=== PATIENT | male | born 1955 | race Caucasian/White ===

== ENCOUNTER 2018-09-16 18:13 | Inpatient (IN) ==
[2018-09-16] MEDS ORDERED: ceFAZolin 2 GM Premix Inj 2 GM/50 ML PIGGYBACK IV.SIG ONE (18:21)
[2018-09-16] MEDS ORDERED: Midazolam Inj 5 MG/ML 1 ML Vial ONE (18:25)
[2018-09-16] MEDS ORDERED: fentaNYL Citrate Inj 100 MCG/2 ML Ampul ONE (18:33)
[2018-09-16 18:35] LABS: Baso # (Auto) 0.1 th/mm3 (0.0-0.2); Baso % (Auto) 0.5 % (0.0-2.0); Eos # (Auto) 0.1 th/mm3 (0.0-0.4); Eos % (Auto) 1.1 % (0.0-4.0); Hematocrit 45.9 % (39.0-51.0); Hemoglobin 15.9 gm/dL (13.0-17.0); Lymph # (Auto) 2.7 th/mm3 (1.0-4.8); Lymph % (Auto) 24.1 % (9.0-44.0); Mean Corpuscular HGB Conc 34.7 % (32.0-36.0); Mean Corpuscular Hemoglobin 30.1 pg (27.0-34.0); Mean Corpuscular Volume 86.7 fL (80.0-100.0); Mean Platelet Volume 7.9 fL (7.0-11.0); Mono # (Auto) 0.6 th/mm3 (0.0-0.9); Mono % (Auto) 5.6 % (0.0-8.0); Neut # (Auto) 7.6 th/mm3 (1.8-7.7); Neut % (Auto) 68.7 % (16.0-70.0); Platelet Count 139 th/mm3 (150-450); Red Blood Count 5.29 mil/mm3 (4.50-5.90); Red Cell Distribution Width 14.2 % (11.6-17.2); White Blood Count 11.1 th/mm3 (4.0-11.0)
[2018-09-16 18:45] LABS: Activated Partial Thrombo Time 24.5 sec (23.4-31.7); Prothrombin Time 10.2 sec (9.8-11.6)
--- NOTE | 2018-09-16 18:55 | ED ---
HPI General Chief complaint: Trauma Alert Stated complaint: trauma History of Present Illness HPI narrative: Patient is an approximately 68 year old male presents to the ER for evaluation as a trauma alert level II. Patient was apparently on the roof of his house and fell landing on his head. EMS reports LOC which was brief, combative during transportation and confused. He is not on blood thinners according to EMS. No additional history is readily available. Related Data Home Medications Medication Instructions Recorded Confirmed No Known Home Medications 09/16/18 09/16/18 Allergies Allergy/AdvReac Type Severity Reaction Status Date / Time No Known Allergies Allergy Verified 09/16/18 18:46 Review of Systems ROS Unobtainable ROS Unobtainable: unobtainable due to mental status Course Initial Documented Vital Signs Pulse Oximetry 100 09/16/18 18:27 Last Documented Vital Signs Pulse Oximetry 100 09/16/18 18:27 Critical Care Time Critical Care Time: Yes Total Critical Care Time: 35 Attestation: Aggregate critical care time was 35 minutes. Time to perform other separately billable procedures was not included in the critical care time. My time did not include minutes spent treating any other patients simultaneously or on activities that did not directly contribute to the patient's treatment. The services I provided to this patient were to treat and/or prevent clinically significant deterioration that could result in: , disability, organ failure I provided critical care services requiring my management, as noted below: Chart data review, documentation time, medication orders and management, vital sign assessments/reviewing monitor data, ordering and reviewing lab tests, ordering and interpreting/reviewing x-rays and diagnostic studies, care of the patient and discussion of the patient with the admitting physicians. Medical Decision Making MDM Narrative Medical decision making narrative: Patient is an elderly male presented to the emergency department after falling off a roof, significantly confused on arrival. Patient required Versed and fentanyl to hold still for CAT scans. Reviewed the CAT scan images with Dr. Hilario who states that there is probably some small subarachnoid hemorrhage on this patient. Hemodynamically stable, required Versed and fentanyl to be sedated for CAT scan. CBC, i-stat chem7, Coags reviewed and unremarkable. CT Head, C-spine, Chest, Abd/Pel, Tspine, Lspine results: Multiple right sided rib fractures including first right rib. Right sided pulmonary contusion Tiny left subdural hematoma Small subarachnoid hemorrhage and hemorrhagic contusion of left frontal/left temporal region. Hairline right occipital fracture. Abdomen negative. D/W Dr. Solis, likely no surgical intervention, he will see patient. D/W Dr. Krystle Melgar, to be admitted to ICU. Medical Screen Exam Complete: Yes Emergency Medical Condition: Yes Lab Data Result diagrams: 09/16/18 18:15 Lab Results 09/16/18 09/16/18 09/16/18 Range/Units 18:15 18:15 18:15 WBC 11.1 H (4.0-11.0) th/mm3 RBC 5.29 (4.50-5.90) mil/mm3 Hgb 15.9 (13.0-17.0) gm/dL POC Hgb (Calc) 15.6 (13.0-17.0) g/dL Hct 45.9 (39.0-51.0) % POC Hct 46.0 (39-51.0) % MCV 86.7 (80.0-100.0) fL MCH 30.1 (27.0-34.0) pg MCHC 34.7 (32.0-36.0) % RDW 14.2 (11.6-17.2) % Plt Count 139 L (150-450) th/mm3 MPV 7.9 (7.0-11.0) fL Neut % (Auto) 68.7 (16.0-70.0) % Lymph % (Auto) 24.1 (9.0-44.0) % Kemper % (Auto) 5.6 (0.0-8.0) % Eos % (Auto) 1.1 (0.0-4.0) % Baso % (Auto) 0.5 (0.0-2.0) % Neut # (Auto) 7.6 (1.8-7.7) th/mm3 Lymph # (Auto) 2.7 (1.0-4.8) th/mm3 Kemper # (Auto) 0.6 (0.0-0.9) th/mm3 Eos # (Auto) 0.1 (0.0-0.4) th/mm3 Baso # (Auto) 0.1 (0.0-0.2) th/mm3 WBC Differential . Differential Comment Auto diff final PT 10.2 (9.8-11.6) sec INR 1.0 Ratio APTT 24.5 (23.4-31.7) sec POC Sodium 145 H (137-144) mmol/L POC Potassium 3.8 (3.6-5.0) mmol/L POC Chloride 106 (102-111) mmol/L POC BUN 19 (5-21) mg/dL POC Creatinine 1.3 (0.6-1.3) mg/dL POC Glucose 98 (68-110) mg/dL Blood Type Antibody Screen 09/16/18 Range/Units 18:15 WBC (4.0-11.0) th/mm3 RBC (4.50-5.90) mil/mm3 Hgb (13.0-17.0) gm/dL POC Hgb (Calc) (13.0-17.0) g/dL Hct (39.0-51.0) % POC Hct (39-51.0) % MCV (80.0-100.0) fL MCH (27.0-34.0) pg MCHC (32.0-36.0) % RDW (11.6-17.2) % Plt Count (150-450) th/mm3 MPV (7.0-11.0) fL Neut % (Auto) (16.0-70.0) % Lymph % (Auto) (9.0-44.0) % Kemper % (Auto) (0.0-8.0) % Eos % (Auto) (0.0-4.0) % Baso % (Auto) (0.0-2.0) % Neut # (Auto) (1.8-7.7) th/mm3 Lymph # (Auto) (1.0-4.8) th/mm3 Kemper # (Auto) (0.0-0.9) th/mm3 Eos # (Auto) (0.0-0.4) th/mm3 Baso # (Auto) (0.0-0.2) th/mm3 WBC Differential Differential Comment PT (9.8-11.6) sec INR Ratio APTT (23.4-31.7) sec POC Sodium (137-144) mmol/L POC Potassium (3.6-5.0) mmol/L POC Chloride (102-111) mmol/L POC BUN (5-21) mg/dL POC Creatinine (0.6-1.3) mg/dL POC Glucose (68-110) mg/dL Blood Type A Positive Antibody Screen Negative Imaging Data Radiologist's impression: Abdomen/Pelvis CT 09/16/18 18:21 CONCLUSION: 1. Fractures of the right 11th rib and right first through fourth transverse processes of the lumbar spine. 2. No solid visceral injury identified within the abdomen. Cervical Spine CT 09/16/18 18:21 CONCLUSION: 1. No cervical spine fracture identified. 2. Nondisplaced fractures of the medial right first rib and right occipital bone. Chest CT 09/16/18 18:21 CONCLUSION: 1. Fractures of the right third through sixth rib and right 11th rib, nondisplaced with minimal right posterior lung thorax. 2. Dilated esophagus with esophageal motility disorder. Face CT 09/16/18 18:21 CONCLUSION: 1. No acute facial bone fracture. Head CT 09/16/18 18:21 CONCLUSION: 1. Tiny left subdural hematoma measuring up to about 3 mm in thickness without mass effect or midline shift. 2. Small subarachnoid hemorrhage and probable minimal hemorrhagic contusion in the upper left frontal lobe and left temporal region. 3. Soft tissue swelling in the right occipital region with a hairline nondisplaced fracture of the right occipital bone. . Lumbar Spine CT 09/16/18 18:21 CONCLUSION: EXAM DATE: 09/16/2018 7:28 PM EST AGE/SEX: 89 years / Male INDICATIONS: Trauma alert. Fell off a roof. CLINICAL DATA: This is the patient's initial encounter. Patient reports that signs and symptoms have been present for 1 day and indicates a pain score of Nonresponsive. MEDICAL/SURGICAL HISTORY: Non-responsive. Non-responsive. RADIATION DOSE: . CTDI (mGy) ; Reconstructed from previous dataset, no dose COMPARISON: No prior exams available for comparison. TECHNIQUE: Contiguous axial images were acquired using a multirow detector CT scanner after intravenous administration of 97 ml Omnipaque 350 (iohexol) nonionic water-soluble contrast as a cumulative dose for multiple exams. Multiplanar reconstruction in the sagittal and coronal planes was performed. Using automated exposure control and adjustment of the mA and/or kV according to patient size, radiation dose was kept as low as reasonably achievable to obtain optimal diagnostic quality images. DICOM format image data is available electronically for review and comparison. FINDINGS: No thoracic vertebral body fractures are identified. CONCLUSION: EXAM DATE: 09/16/2018 7:28 PM EST AGE/SEX: 89 years / Male INDICATIONS: Trauma alert. Fell off a roof. CLINICAL DATA: This is the patient's initial encounter. Patient reports that signs and symptoms have been present for 1 day and indicates a pain score of Nonresponsive. MEDICAL/SURGICAL HISTORY: Non-responsive. Non-responsive. RADIATION DOSE: . CTDI (mGy) ; Reconstructed from previous dataset, no dose COMPARISON: No prior exams available for comparison. TECHNIQUE: Multiple contiguous axial images were obtained through the chest during bolus infusion of 97 ml Omnipaque 350 (iohexol) nonionic water-soluble contrast as a cumulative dose for multiple exams. Images were obtained in suspended respiration using multiple row detector helical technique. Using automated exposure control and adjustment of the mA and/or kV according to patient size, radiation dose was kept as low as reasonably achievable to obtain optimal diagnostic quality images. DICOM format image data is available electronically for review and comparison. FINDINGS: No fractures of the right third through sixth ribs on the right 11th rib, nondisplaced. No pneumothorax. Minimal lung contusion on the right posteriorly. Trace extrapleural hemorrhage. There is no mediastinal hematoma or evidence for traumatic aortic injury. The esophagus is abnormally dilated characteristic of esophageal motility disorder. CONCLUSION: 1. Fractures of the right third through sixth rib and right 11th rib, nondisplaced with minimal right posterior lung contusion 2. Dilated esophagus with esophageal motility disorder. Thoracic Spine CT 09/16/18 18:21 CONCLUSION: EXAM DATE: 09/16/2018 7:24 PM EST AGE/SEX: 89 years / Male INDICATIONS: Trauma. Fell off a roof. CLINICAL DATA: This is the patient's initial encounter. Patient reports that signs and symptoms have been present for 1 day and indicates a pain score of Nonresponsive. MEDICAL/SURGICAL HISTORY: Non-responsive. Non-responsive. RADIATION DOSE: . CTDI (mGy) ; Reconstructed from previous dataset, no dose COMPARISON: No prior exams available for comparison. TECHNIQUE: Multiple contiguous axial images were obtained through the chest during bolus infusion of 96 ml Omnipaque 350 (iohexol) nonionic water-soluble contrast as a single exam dose. Images were obtained in suspended respiration using multiple row detector helical technique. Using automated exposure control and adjustment of the mA and/or kV according to patient size, radiation dose was kept as low as reasonably achievable to obtain optimal diagnostic quality images. DICOM format image data is available electronically for review and comparison. FINDINGS: No fractures of the right third through sixth ribs on the right 11th rib, nondisplaced. No pneumothorax. Minimal lung contusion on the right posteriorly. Trace extrapleural hemorrhage. There is no mediastinal hematoma or evidence for traumatic aortic injury. The esophagus is abnormally dilated characteristic of esophageal motility disorder. CONCLUSION: 1. Fractures of the right third through sixth rib and right 11th rib, nondisplaced with minimal right posterior lung contusion 2. Dilated esophagus with esophageal motility disorder. Discharge Plan Discharge Disposition Patient Disposition: ED Admit(ED Internal Use Only) Discharge Condition Condition: Fair Discharge Order Discharge Orders: ED Use Only Admit Order (Routine); Ordered 09/16/18 Ordered By: Yakov Espinal Discharge Details Diagnosis: Contusion of lung, Closed rib fracture, Brain contusion, Subdural hemorrhage Physicians Team ED Provider: Yakov Espinal Primary Care Provider: UNKNOWN, Attending Provider: Eros Melgar Other Providers: Tete Van ; Andreia Francis ; Braden Patel ; Alice Carlisle ; Jesus Yu ; Eros Melgar ; George Daniels ; Thanh Rivers ; [employer] ; Dalton Solis Status ED Status: Admitted Patient
--- NOTE | 2018-09-16 19:14 | CT ---
EXAM DATE: 09/16/2018 7:00 PM EST AGE/SEX: 89 years / Male INDICATIONS: TRAUMA ALERT. Fall from a roof. CLINICAL DATA: This is the patient's initial encounter. Patient reports that signs and symptoms have been present for 1 day and indicates a pain score of Nonresponsive. MEDICAL/SURGICAL HISTORY: Non-responsive. Non-responsive. RADIATION DOSE: 11.56 CTDI (mGy) COMPARISON: No prior exams available for comparison. TECHNIQUE: Multiple contiguous axial images were obtained through the chest during bolus infusion of 97 ml Omnipaque 350 (iohexol) nonionic water-soluble contrast as a cumulative dose for multiple exa ms. Images were obtained in suspended respiration using multiple row detector helical technique. U sing automated exposure control and adjustment of the mA and/or kV according to patient size, radiati on dose was kept as low as reasonably achievable to obtain optimal diagnostic quality images. DICOM format image data is available electronically for review and comparison. FINDINGS: No fractures of the right third through sixth ribs on the right 11th rib, nondisplaced. No pneumothor ax. Minimal lung contusion on the right posteriorly. Trace extrapleural hemorrhage. There is no mediastinal hematoma or evidence for traumatic aortic injury. The esophagus is abnormally dilated characteristic of esophageal motility disorder. CONCLUSION: 1. Fractures of the right third through sixth rib and right 11th rib, nondisplaced with minimal righ t posterior lung thorax. 2. Dilated esophagus with esophageal motility disorder. Electronically signed by: Mati Hilario MD Board Certified Radiologist 09/16/2018 7:13 PM EST
--- NOTE | 2018-09-16 19:17 | CT ---
EXAM DATE: 09/16/2018 6:58 PM EST AGE/SEX: 89 years / Male INDICATIONS: TRAUMA ALERT. Fall from a roof. CLINICAL DATA: This is the patient's initial encounter. Patient reports that signs and symptoms have been present for 1 day and indicates a pain score of Nonresponsive. MEDICAL/SURGICAL HISTORY: Non-responsive. Non-responsive. RADIATION DOSE: 64.63 CTDI (mGy) COMPARISON: No prior exams available for comparison. TECHNIQUE: CT of the head without contrast. Using automated exposure control and adjustment of the mA and/or kV according to patient size, radiation dose was kept as low as reasonably achievable to ob tain optimal diagnostic quality images. DICOM format image data is available electronically for revi ew and comparison. FINDINGS: There is a small amount of hemorrhage in the upper left frontal region and also in the left temporal region probably representing subarachnoid hemorrhage and mild fraying contusions. There is soft tissu e swelling right occipital region with a nondisplaced hairline occipital bone fracture. There is a ti ny left subdural hematoma measuring up to about 3 mm in thickness. There is some fluid in the sphenoid sinus. CONCLUSION: 1. Tiny left subdural hematoma measuring up to about 3 mm in thickness without mass effect or midlin e shift. 2. Small subarachnoid hemorrhage and probable minimal hemorrhagic contusion in the upper left fronta l lobe and left temporal region. 3. Soft tissue swelling in the right occipital region with a hairline nondisplaced fracture of the r ight occipital bone. . Electronically signed by: Mati Hilario MD Board Certified Radiologist 09/16/2018 7:16 PM EST
--- NOTE | 2018-09-16 19:22 | CT ---
EXAM DATE: 09/16/2018 7:13 PM EST AGE/SEX: 89 years / Male INDICATIONS: TRAUMA ALERT. Fall from a roof. CLINICAL DATA: This is the patient's initial encounter. Patient reports that signs and symptoms have been present for 1 day and indicates a pain score of Nonresponsive. MEDICAL/SURGICAL HISTORY: Non-responsive. Non-responsive. ORAL CONTRAST: No oral contrast ingested. RADIATION DOSE: 11.56 CTDI (mGy) ; Combined studies COMPARISON: No prior exams available for comparison. TECHNIQUE: Multiple contiguous axial images were obtained through the abdomen and pelvis following b olus infusion of 97 ml Omnipaque 350 (iohexol) nonionic water-soluble contrast as a cumulative dose for multiple exams. No oral contrast ingested. Using automated exposure control and adjustment of t he mA and/or kV according to patient size, radiation dose was kept as low as reasonably achievable to obtain optimal diagnostic quality images. DICOM format image data is available electronically for r eview and comparison. FINDINGS: There is dependent atelectasis in the lungs. Distal esophagus is dilated. No acute findings in the liver, spleen, adrenals, kidneys or pancreas. Punctate calcifications noted in the wall of the gallbladder. No pelvic masses or adenopathy. No free fluid. Right 11th rib fracture noted. There are also fractures of the right first, second, third, fourth transverse processes. CONCLUSION: 1. Fractures of the right 11th rib and right first through fourth transverse processes of the lumbar spine. 2. No solid visceral injury identified within the abdomen. Electronically signed by: Mati Hilario MD Board Certified Radiologist 09/16/2018 7:20 PM EST
--- NOTE | 2018-09-16 19:27 | CT ---
EXAM DATE: 09/16/2018 7:12 PM EST AGE/SEX: 89 years / Male INDICATIONS: TRAUMA ALERT. Fall from a roof. CLINICAL DATA: This is the patient's initial encounter. Patient reports that signs and symptoms have been present for 1 day and indicates a pain score of Nonresponsive. MEDICAL/SURGICAL HISTORY: Non-responsive. Non-responsive. RADIATION DOSE: 20.44 CTDI (mGy) COMPARISON: No prior exams available for comparison. TECHNIQUE: Contiguous axial images were obtained using helical multirow detector technique. The vol umetric data was post-processed with multiplanar reconstruction in oblique axial, sagittal, and coron al planes. Using automated exposure control and adjustment of the mA and/or kV according to patient s ize, radiation dose was kept as low as reasonably achievable to obtain optimal diagnostic quality danitza ges. DICOM format image data is available electronically for review and comparison. FINDINGS: There is no acute fracture or spondylolisthesis in the cervical spine. Moderate degenerative disc dis ease. There is a probable nondisplaced fracture medial right first rib. There is a nondisplaced right occipital bone fracture. Fluid in sphenoid sinus. CONCLUSION: 1. No cervical spine fracture identified. 2. Nondisplaced fractures of the medial right first rib and right occipital bone. Electronically signed by: Mati Hilario MD Board Certified Radiologist 09/16/2018 7:25 PM EST
[2018-09-16] MEDS: Sod Chloride 0.9% Inj 1,000 ML IV.CONT SCH (19:30)
--- NOTE | 2018-09-16 19:32 | CT ---
EXAM DATE: 09/16/2018 7:24 PM EST AGE/SEX: 89 years / Male INDICATIONS: Trauma. Fell off a roof. CLINICAL DATA: This is the patient's initial encounter. Patient reports that signs and symptoms have been present for 1 day and indicates a pain score of Nonresponsive. MEDICAL/SURGICAL HISTORY: Non-responsive. Non-responsive. RADIATION DOSE: . CTDI (mGy) ; Reconstructed from previous dataset, no dose COMPARISON: No prior exams available for comparison. TECHNIQUE: Contiguous axial images were acquired using a multirow detector CT scanner after intraven ous administration of 96 ml Omnipaque 350 (iohexol) nonionic water-soluble contrast as a single exam dose. Multiplanar reconstruction in the sagittal and coronal planes was performed. Using automate d exposure control and adjustment of the mA and/or kV according to patient size, radiation dose was k ept as low as reasonably achievable to obtain optimal diagnostic quality images. DICOM format image data is available electronically for review and comparison. FINDINGS: No thoracic vertebral body fractures are identified. CONCLUSION: EXAM DATE: 09/16/2018 7:24 PM EST AGE/SEX: 89 years / Male INDICATIONS: Trauma. Fell off a roof. CLINICAL DATA: This is the patient's initial encounter. Patient reports that signs and symptoms have been present for 1 day and indicates a pain score of Nonresponsive. MEDICAL/SURGICAL HISTORY: Non-responsive. Non-responsive. RADIATION DOSE: . CTDI (mGy) ; Reconstructed from previous dataset, no dose COMPARISON: No prior exams available for comparison. TECHNIQUE: Multiple contiguous axial images were obtained through the chest during bolus infusion of 96 ml Omnipaque 350 (iohexol) nonionic water-soluble contrast as a single exam dose. Images were obtained in suspended respiration using multiple row detector helical technique. Using automated exp osure control and adjustment of the mA and/or kV according to patient size, radiation dose was kept a s low as reasonably achievable to obtain optimal diagnostic quality images. DICOM format image data is available electronically for review and comparison. FINDINGS: No fractures of the right third through sixth ribs on the right 11th rib, nondisplaced. No pneumothor ax. Minimal lung contusion on the right posteriorly. Trace extrapleural hemorrhage. There is no mediastinal hematoma or evidence for traumatic aortic injury. The esophagus is abnormally dilated characteristic of esophageal motility disorder. CONCLUSION: 1. Fractures of the right third through sixth rib and right 11th rib, nondisplaced with minimal righ t posterior lung contusion 2. Dilated esophagus with esophageal motility disorder. Electronically signed by: Mati Hilario MD Board Certified Radiologist 09/16/2018 7:31 PM EST
--- NOTE | 2018-09-16 19:34 | CT ---
EXAM DATE: 09/16/2018 7:28 PM EST AGE/SEX: 89 years / Male INDICATIONS: Trauma alert. Fell off a roof. CLINICAL DATA: This is the patient's initial encounter. Patient reports that signs and symptoms have been present for 1 day and indicates a pain score of Nonresponsive. MEDICAL/SURGICAL HISTORY: Non-responsive. Non-responsive. RADIATION DOSE: . CTDI (mGy) ; Reconstructed from previous dataset, no dose COMPARISON: No prior exams available for comparison. TECHNIQUE: Contiguous axial images were acquired with a multirow detector CT scanner after intraveno us administration of 97 ml Omnipaque 350 (iohexol) nonionic water-soluble contrast as a cumulative d ose for multiple exams. Multiplanar reconstructions in the sagittal and coronal plane were also perf ormed. Using automated exposure control and adjustment of the mA and/or kV according to patient size, radiation dose was kept as low as reasonably achievable to obtain optimal diagnostic quality images. DICOM format image data is available electronically for review and comparison. FINDINGS: CONCLUSION: EXAM DATE: 09/16/2018 7:28 PM EST AGE/SEX: 89 years / Male INDICATIONS: Trauma alert. Fell off a roof. CLINICAL DATA: This is the patient's initial encounter. Patient reports that signs and symptoms have been present for 1 day and indicates a pain score of Nonresponsive. MEDICAL/SURGICAL HISTORY: Non-responsive. Non-responsive. RADIATION DOSE: . CTDI (mGy) ; Reconstructed from previous dataset, no dose COMPARISON: No prior exams available for comparison. TECHNIQUE: Contiguous axial images were acquired using a multirow detector CT scanner after intraven ous administration of 97 ml Omnipaque 350 (iohexol) nonionic water-soluble contrast as a cumulative dose for multiple exams. Multiplanar reconstruction in the sagittal and coronal planes was performe d. Using automated exposure control and adjustment of the mA and/or kV according to patient size, ra diation dose was kept as low as reasonably achievable to obtain optimal diagnostic quality images. D ICOM format image data is available electronically for review and comparison. FINDINGS: No thoracic vertebral body fractures are identified. CONCLUSION: EXAM DATE: 09/16/2018 7:28 PM EST AGE/SEX: 89 years / Male INDICATIONS: Trauma alert. Fell off a roof. CLINICAL DATA: This is the patient's initial encounter. Patient reports that signs and symptoms have been present for 1 day and indicates a pain score of Nonresponsive. MEDICAL/SURGICAL HISTORY: Non-responsive. Non-responsive. RADIATION DOSE: . CTDI (mGy) ; Reconstructed from previous dataset, no dose COMPARISON: No prior exams available for comparison. TECHNIQUE: Multiple contiguous axial images were obtained through the chest during bolus infusion of 97 ml Omnipaque 350 (iohexol) nonionic water-soluble contrast as a cumulative dose for multiple exa ms. Images were obtained in suspended respiration using multiple row detector helical technique. U sing automated exposure control and adjustment of the mA and/or kV according to patient size, radiati on dose was kept as low as reasonably achievable to obtain optimal diagnostic quality images. DICOM format image data is available electronically for review and comparison. FINDINGS: No fractures of the right third through sixth ribs on the right 11th rib, nondisplaced. No pneumothor ax. Minimal lung contusion on the right posteriorly. Trace extrapleural hemorrhage. There is no mediastinal hematoma or evidence for traumatic aortic injury. The esophagus is abnormally dilated characteristic of esophageal motility disorder. CONCLUSION: 1. Fractures of the right third through sixth rib and right 11th rib, nondisplaced with minimal righ t posterior lung contusion 2. Dilated esophagus with esophageal motility disorder. Electronically signed by: Mati Hilario MD Board Certified Radiologist 09/16/2018 7:32 PM EST
--- NOTE | 2018-09-16 19:36 | CT ---
EXAM DATE: 09/16/2018 7:25 PM EST AGE/SEX: 89 years / Male INDICATIONS: Trauma. Fell off a roof. CLINICAL DATA: This is the patient's initial encounter. Patient reports that signs and symptoms have been present for 1 day and indicates a pain score of Nonresponsive. MEDICAL/SURGICAL HISTORY: Non-responsive. Non-responsive. RADIATION DOSE: 21.96 CTDI (mGy) COMPARISON: No prior exams available for comparison. TECHNIQUE: Contiguous images in the axial and coronal planes were obtained using helical multirow de tector technique. Using automated exposure control and adjustment of the mA and/or kV according to p atient size, radiation dose was kept as low as reasonably achievable to obtain optimal diagnostic esteban lity images. DICOM format image data is available electronically for review and comparison. FINDINGS: Exam is degraded by motion. No acute facial bone fracture identified. There is fluid in the sphenoid sinus. Temporomandibular joints are intact. CONCLUSION: 1. No acute facial bone fracture. Electronically signed by: Mati Hilario MD Board Certified Radiologist 09/16/2018 7:34 PM EST
--- NOTE | 2018-09-16 19:41 | P.CONNS ---
History of Present Illness Service: trauma Primary Care Provider: UNKNOWN History of Present Illness: 68's yoM who fell off the roof while cleaning the gutters. +LOC. Imaging shows mild traumatic subarachnoid hemorrhage left frontal (post-contrast delay from other scans creates an artifact). CT C-spine negative. Patient GCS 14, mildly confused, otherwise answers appropriately and moves all extremities with full strength. Has an occipital bone fracture (right) right occipital hematoma (subgaleal, extracranial) without break in the skin, and right first rib fracture. Medications and Allergies Active Medications: Active Medications Bacitracin (Baciguent Oint) 1 applicatio TOPICAL BID PAYAM Chlorhexidine Gluconate (Chlorhexidine 2% Cloth) 3 pack TOPICAL DAILY@0400 PAYAM Stop: 09/22/18 03:59 Chlorhexidine Gluconate (Chlorhexidine 2% Cloth) 3 pack TOPICAL DAILY@0400 PRN PRN Reason: Extra cloth needed Stop: 09/22/18 03:59 Enalaprilat (Vasotec Inj) 1.25 mg IV.PUSH Q8H PRN PRN Reason: Blood pressure 180/95 Hydromorphone HCl (Dilaudid Pf Inj) 1 mg IV.PUSH Q1H PRN PRN Reason: Break through pain Sodium Chloride (Ns Inj) 1,000 mls @ 100 mls/hr IV.CONT .Q10H PAYAM Ondansetron HCl (Zofran Inj) 4 mg IV.PUSH Q6H PRN PRN Reason: NAUSEA OR VOMITING Pantoprazole Sodium (Protonix Inj) 40 mg IV.PUSH Q24H PAYAM Sodium Chloride (Ns Flush) 2 ml IV.FLUSH UNSCH PRN PRN Reason: FLUSH AFTER USING IV ACCESS Allergies Allergy/AdvReac Type Severity Reaction Status Date / Time No Known Allergies Allergy Verified 09/16/18 18:46 Home Medications Medication Instructions Recorded Confirmed Type No Known Home Medications 09/16/18 09/16/18 History Exam Vital signs: Vital Signs 09/16/18 18:27 Pulse Oximetry 100 Intake & Output 09/16/18 09/16/18 09/17/18 06:59 18:59 06:59 Intake Total 50 / 50 Balance 50 / 50 Intake: IV 50 / 50 Ancef 2 GM Premix Inj 2 gm In 50 / 50 50 ml @ 0 mls/hr IV.SIG .STK- MED ONE Rx#:[id number] Narrative: A&O to name, place Full strength UE/LE Intact sensation no neck pain CN II-XII intact Results - Laboratory Findings CBC and BMP: 09/16/18 18:15 Abnormal lab findings: Abnormal Labs 09/16/18 09/16/18 18:15 18:15 WBC 11.1 H Plt Count 139 L POC Sodium 145 H Assessment and Plan - Plan 68'sM fall off roof with +LOC, traumatic SAH. Plan: repeat CT in AM Keppra 1gm load then 500mg BID C-collar cleared, activity and diet as tolerated Defer remainder of evaluation to trauma
[2018-09-16] MEDS ORDERED: Magnesium Sulfate Inj 2 GM in Sodium Chlor 0.9% Inj 96 ML IV.SIG PRN (20:45)
[2018-09-16] MEDS ORDERED: Potassium Phosphate Inj 30 MMOL in Sodium Chlor 0.9% Inj 250 ML IV.SIG PRN (20:45)
[2018-09-16] MEDS ORDERED: Magnesium Oxide 400 MG Tablet PO PRN (20:45)
[2018-09-16] MEDS ORDERED: Potassium Chlor 20 mEq Premix 20 MEQ/100 ML PIGGYBACK IV.SIG PRN ×2 (20:45)
[2018-09-16] MEDS ORDERED: Magnesium Sulfate Inj 4 GM in Sodium Chlor 0.9% Inj 92 ML IV.SIG PRN (20:45)
[2018-09-16] MEDS ORDERED: Potassium Chlor 40 mEq Premix 40 MEQ/100 ML PIGGYBACK IV.SIG PRN ×2 (20:45)
[2018-09-16] MEDS ORDERED: Potassium Phosphate 500 MG Soluble Tablet PO PRN ×2 (20:45)
[2018-09-16] MEDS ORDERED: Potassium Chloride 25 MEQ Effervescent Tablet PO PRN (20:45)
[2018-09-16] MEDS ORDERED: Sodium Phosphate Inj 30 MMOL in Sodium Chlor 0.9% Inj 250 ML IV.SIG PRN (20:45)
[2018-09-16] MEDS: HYDROmorphone PF Inj 1 MG/ML Ampul IV.PUSH PRN (20:46)
[2018-09-16] MEDS: Pantoprazole Inj 40 MG Vial IV.PUSH SCH (20:47)
[2018-09-16] MEDS ORDERED: Lidocaine 5% Patch T-DERMAL SCH (21:00)
[2018-09-16] MEDS: Methocarbamol 500 MG Tablet PO SCH (21:14)
[2018-09-16] MEDS: Senna/Docusate Sodium 8.6/50 MG Tablet PO SCH (21:14)
[2018-09-16] MEDS: levETIRAcetam 500 MG Tablet PO SCH (21:14)
[2018-09-16] MEDS: Lidocaine 5% Patch T-DERMAL SCH ×2 (21:15→22:15)
--- NOTE | 2018-09-16 21:31 | MH ---
cc: Eros Melgar MD DATE OF ADMISSION: 09/16/2018 CHIEF COMPLAINT: Level 2 trauma alert, status post fall. HISTORY OF PRESENT ILLNESS: The patient is a [id number] male who presents status post fall. The patient was noted to be cleaning his gutters when he lost his balance and fell from roof. He was noted to have a brief loss of consciousness and was noted to have confusion en route, GCS of 14. He was noted to be hemodynamically stable and taken to the trauma bay. He had further workup including primary and secondary surveys with again some baseline confusion, but otherwise protecting the airway. He was taken to the CT scanner with findings of subarachnoid hemorrhage, occipital skull fracture, rib fracture of 1, 3-6 and 11 on the right. The patient was transferred to the ICU. PAST MEDICAL HISTORY: Unable to obtain. PAST SURGICAL HISTORY: Unable to obtain ALLERGIES: NO KNOWN DRUG ALLERGIES. SOCIAL HISTORY: Unable to obtain. MEDICATION: Unable to obtain FAMILY HISTORY: Unable to obtain. REVIEW OF SYSTEMS: A 12-point review of systems is otherwise was negative except as above. PHYSICAL EXAMINATION: GENERAL: The patient is in mild distress. VITAL SIGNS: Temperature 98.2, pulse 72, blood pressure 167/95, saturation 99% on 2 liters. HEENT: Pupils equal, round, and reactive. A small laceration on occipital scalp. NECK: Supple. Trachea midline. LUNGS: Bilateral expansion, clear. Tenderness to palpation on right side of the chest. ABDOMEN: Soft, nontender, nondistended. EXTREMITIES: Minor abrasions. Warm and well perfused. NEUROLOGIC: GCS of 14. BACK: No step-offs. PELVIC: Stable. LABORATORY AND DIAGNOSTIC DATA: WBC 11.1, hemoglobin 15.9, hematocrit 46, platelets 139. INR 1. Sodium 145, potassium 3.8, chloride 106, BUN 19, creatinine 1.3, glucose 98. CT is reviewed by myself showin. CT head: Left subdural hematoma 3 mm, subarachnoid contusion, frontal and temporal on the left, soft tissue swelling. 2. CT C-spine: No cervical fracture or rib fractures noted. 3. CT of T-spine and L-spine: No thoracic vertebral body fractures. No lumbar fractures. 4. CT chest: Multiple rib fractures, ribs 1, 3-6 and 11 on right, pulmonary contusion. 5. CT abdomen and pelvis: No evidence of abdominal organ injury. ASSESSMENT: The patient is a [id number] male status post a fall from roof with a subarachnoid hemorrhage, small subdural and several right rib fractures, pulmonary contusion, ribs 1, 3-6 and 11 on the right. PLAN: After full workup, the patient with the above-named issues. At this point, the patient needs to go to ICU for close monitoring and evaluation. Consultation neurosurgery who recommends Keppra and repeat CT scan in the morning. Scalp laceration closed with antonietta at bedside via neurosurgery. Every 1 hour neuro checks, pain control, IV fluids, n.p.o. for now. Will continue to follow and consultation to ICU for further management. Discussion with Dr. Carlisle. MD ONEIL Jeffery/steffanie , 08:51 PM , 09:04 PM NILDA
--- NOTE | 2018-09-16 23:58 | P.PNCC ---
Subjective Brief History: 74-year-old male fell off a roof while cleaning gutters and was transferred to our institution is priority 1 trauma alert. On arrival patient was awake alert but somewhat disoriented to repetitive and confused. Dileep Coma Scale about 13 and then came up to 14 Patient underwent full diagnostic and clinical workup and was found to have following injuries Left fronto-temporal sub-arachnoid bleed Right occipital skull fracture Right right third, fourth, fifth, sixth, seventh rib fracture Small pulmonary contusion and small hemothorax on the right Patient will be observed in the ICU neurosurgery is consulted and he will undergo repeat CT scan of the brain tomorrow Objective Vital Signs / I&O: Vital Signs 09/16/18 18:27 09/16/18 19:43 09/16/18 20:00 Temperature 98.4 F Pulse Rate 93 H 89 Respiratory Rate 22 17 Blood Pressure Pulse Oximetry 100 98 97 09/16/18 20:04 09/16/18 20:14 09/16/18 20:34 Temperature Pulse Rate 90 94 H 98 H Respiratory Rate 18 25 H 22 Blood Pressure 164/101 H 166/95 H 165/84 H Pulse Oximetry 97 95 98 09/16/18 21:00 09/16/18 21:04 09/16/18 21:17 Temperature Pulse Rate 95 H 95 H 98 H Respiratory Rate 18 18 16 Blood Pressure 136/77 Pulse Oximetry 96 97 09/16/18 21:34 09/16/18 22:00 09/16/18 22:04 Temperature Pulse Rate 97 H 100 H 99 H Respiratory Rate 19 17 18 Blood Pressure 139/71 120/75 Pulse Oximetry 97 97 96 Intake & Output 09/16/18 09/16/18 09/17/18 06:59 18:59 06:59 Intake Total 50 / 50 100 / 100 Balance 50 / 50 100 / 100 Weight 86.5 kg Intake: IV 50 / 50 100 / 100 Ofirmev Inj 1,000 mg In 100 ml 100 / 100 @ 400 mls/hr IV.SIG Q6H PAYAM Rx# :[id number] Ancef 2 GM Premix Inj 2 gm In 50 / 50 50 ml @ 0 mls/hr IV.SIG .STK- MED ONE Rx#:[id number] Other: Weight On Admission 86.5 kg Result Diagrams: 09/16/18 18:15 Imaging: Impressions Abdomen/Pelvis CT 09/16/18 18:21 CONCLUSION: 1. Fractures of the right 11th rib and right first through fourth transverse processes of the lumbar spine. 2. No solid visceral injury identified within the abdomen. Cervical Spine CT 09/16/18 18:21 CONCLUSION: 1. No cervical spine fracture identified. 2. Nondisplaced fractures of the medial right first rib and right occipital bone. Chest CT 09/16/18 18:21 CONCLUSION: 1. Fractures of the right third through sixth rib and right 11th rib, nondisplaced with minimal right posterior lung thorax. 2. Dilated esophagus with esophageal motility disorder. Face CT 09/16/18 18:21 CONCLUSION: 1. No acute facial bone fracture. Head CT 09/16/18 18:21 CONCLUSION: 1. Tiny left subdural hematoma measuring up to about 3 mm in thickness without mass effect or midline shift. 2. Small subarachnoid hemorrhage and probable minimal hemorrhagic contusion in the upper left frontal lobe and left temporal region. 3. Soft tissue swelling in the right occipital region with a hairline nondisplaced fracture of the right occipital bone. . Lumbar Spine CT 09/16/18 18:21 CONCLUSION: EXAM DATE: 09/16/2018 7:28 PM EST AGE/SEX: 89 years / Male INDICATIONS: Trauma alert. Fell off a roof. CLINICAL DATA: This is the patient's initial encounter. Patient reports that signs and symptoms have been present for 1 day and indicates a pain score of Nonresponsive. MEDICAL/SURGICAL HISTORY: Non-responsive. Non-responsive. RADIATION DOSE: . CTDI (mGy) ; Reconstructed from previous dataset, no dose COMPARISON: No prior exams available for comparison. TECHNIQUE: Contiguous axial images were acquired using a multirow detector CT scanner after intravenous administration of 97 ml Omnipaque 350 (iohexol) nonionic water-soluble contrast as a cumulative dose for multiple exams. Multiplanar reconstruction in the sagittal and coronal planes was performed. Using automated exposure control and adjustment of the mA and/or kV according to patient size, radiation dose was kept as low as reasonably achievable to obtain optimal diagnostic quality images. DICOM format image data is available electronically for review and comparison. FINDINGS: No thoracic vertebral body fractures are identified. CONCLUSION: EXAM DATE: 09/16/2018 7:28 PM EST AGE/SEX: 89 years / Male INDICATIONS: Trauma alert. Fell off a roof. CLINICAL DATA: This is the patient's initial encounter. Patient reports that signs and symptoms have been present for 1 day and indicates a pain score of Nonresponsive. MEDICAL/SURGICAL HISTORY: Non-responsive. Non-responsive. RADIATION DOSE: . CTDI (mGy) ; Reconstructed from previous dataset, no dose COMPARISON: No prior exams available for comparison. TECHNIQUE: Multiple contiguous axial images were obtained through the chest during bolus infusion of 97 ml Omnipaque 350 (iohexol) nonionic water-soluble contrast as a cumulative dose for multiple exams. Images were obtained in suspended respiration using multiple row detector helical technique. Using automated exposure control and adjustment of the mA and/or kV according to patient size, radiation dose was kept as low as reasonably achievable to obtain optimal diagnostic quality images. DICOM format image data is available electronically for review and comparison. FINDINGS: No fractures of the right third through sixth ribs on the right 11th rib, nondisplaced. No pneumothorax. Minimal lung contusion on the right posteriorly. Trace extrapleural hemorrhage. There is no mediastinal hematoma or evidence for traumatic aortic injury. The esophagus is abnormally dilated characteristic of esophageal motility disorder. CONCLUSION: 1. Fractures of the right third through sixth rib and right 11th rib, nondisplaced with minimal right posterior lung contusion 2. Dilated esophagus with esophageal motility disorder. Thoracic Spine CT 09/16/18 18:21 CONCLUSION: EXAM DATE: 09/16/2018 7:24 PM EST AGE/SEX: 89 years / Male INDICATIONS: Trauma. Fell off a roof. CLINICAL DATA: This is the patient's initial encounter. Patient reports that signs and symptoms have been present for 1 day and indicates a pain score of Nonresponsive. MEDICAL/SURGICAL HISTORY: Non-responsive. Non-responsive. RADIATION DOSE: . CTDI (mGy) ; Reconstructed from previous dataset, no dose COMPARISON: No prior exams available for comparison. TECHNIQUE: Multiple contiguous axial images were obtained through the chest during bolus infusion of 96 ml Omnipaque 350 (iohexol) nonionic water-soluble contrast as a single exam dose. Images were obtained in suspended respiration using multiple row detector helical technique. Using automated exposure control and adjustment of the mA and/or kV according to patient size, radiation dose was kept as low as reasonably achievable to obtain optimal diagnostic quality images. DICOM format image data is available electronically for review and comparison. FINDINGS: No fractures of the right third through sixth ribs on the right 11th rib, nondisplaced. No pneumothorax. Minimal lung contusion on the right posteriorly. Trace extrapleural hemorrhage. There is no mediastinal hematoma or evidence for traumatic aortic injury. The esophagus is abnormally dilated characteristic of esophageal motility disorder. CONCLUSION: 1. Fractures of the right third through sixth rib and right 11th rib, nondisplaced with minimal right posterior lung contusion 2. Dilated esophagus with esophageal motility disorder. Disinhibition Score: 21.00 Aggression Score: 14.00 Lability Score: 14.00 Agitated Behavior Total Score: 18 Assessment and Plan Attestation: Critical care time 34 minutes
[2018-09-17] MEDS: HYDROmorphone PF Inj 1 MG/ML Ampul IV.PUSH PRN ×2 (00:23→08:00)
[2018-09-17] MEDS ORDERED: Haloperidol Inj 5 MG/ML Ampul IV.PUSH PRN (00:25)
[2018-09-17] MEDS: Dexmedetomidine Inj 200 MCG in Sodium Chlor 0.9% Inj 48 ML IV.CONT PRN ×2 (01:54→17:32)
[2018-09-17 03:54] LABS: Baso % (Auto) 0.1 % (0.0-2.0); Hematocrit 40.8 % (39.0-51.0); Hemoglobin 14.4 gm/dL (13.0-17.0); Lymph # (Auto) 0.4 th/mm3 (1.0-4.8); Lymph % (Auto) 2.9 % (9.0-44.0); Mean Corpuscular HGB Conc 35.2 % (32.0-36.0); Mean Corpuscular Hemoglobin 30.1 pg (27.0-34.0); Mean Corpuscular Volume 85.5 fL (80.0-100.0); Mean Platelet Volume 8.6 fL (7.0-11.0); Mono # (Auto) 0.6 th/mm3 (0.0-0.9); Mono % (Auto) 4.1 % (0.0-8.0); Neut # (Auto) 13.4 th/mm3 (1.8-7.7); Neut % (Auto) 92.9 % (16.0-70.0); Platelet Count 116 th/mm3 (150-450); Red Blood Count 4.78 mil/mm3 (4.50-5.90); White Blood Count 14.4 th/mm3 (4.0-11.0)
[2018-09-17] MEDS ORDERED: Chlorhexidine Gluconate 2% 1 Pack (2 Cloths) TOPICAL PRN (04:00)
[2018-09-17 04:16] LABS: Alkaline Phosphatase 51 U/L (45-117)
[2018-09-17 04:28] LABS: Alanine Aminotransferase 27 U/L (12-78); Albumin 3.6 g/dL (3.4-5.0); Anion Gap 9 meq/L (5-15); Aspartate Aminotransferase 39 U/L (15-37); Blood Urea Nitrogen 20 mg/dL (7-18); Calcium 8.1 mg/dL (8.5-10.1); Carbon Dioxide 22.8 meq/L (21.0-32.0); Chloride 110 meq/L (98-107); Glomerular Filtration Rate 51 mL/min (>89); Glucose,Random 175 mg/dL (74-106); Potassium 3.9 meq/L (3.5-5.1); Sodium 142 meq/L (136-145)
--- NOTE | 2018-09-17 04:33 | XR ---
EXAM DATE: 09/17/2018 4:09 AM EST AGE/SEX: 89 years / Male INDICATIONS: Trauma. CLINICAL DATA: This is the patient's subsequent encounter. Patient reports that signs and symptoms h ave been present for 2 days and indicates a pain score of Nonresponsive. MEDICAL/SURGICAL HISTORY: Non-responsive. Non-responsive. COMPARISON: . FINDINGS: A single AP view of the chest demonstrates the lungs to be symmetrically aerated without evidence of mass, infiltrate or effusion. The cardiomediastinal contours are unremarkable. Osseous structures a re intact. CONCLUSION: No acute cardiopulmonary process. Electronically signed by: Giorgi Machado MD Board Certified Radiologist 09/17/2018 4:32 AM EST
[2018-09-17] MEDS: Chlorhexidine Gluconate 2% 1 Pack (2 Cloths) TOPICAL SCH (05:46)
[2018-09-17] MEDS: Methocarbamol 500 MG Tablet PO SCH ×3 (05:46→21:28)
[2018-09-17] MEDS: Sod Chloride 0.9% Inj 1,000 ML IV.CONT SCH ×2 (06:00→17:34)
--- NOTE | 2018-09-17 08:15 | CT ---
EXAM DATE: 09/17/2018 8:07 AM EST AGE/SEX: 89 years / Male INDICATIONS: Follow up fall. Patient became more confused/combative last night. CLINICAL DATA: This is the patient's subsequent encounter. Patient reports that signs and symptoms h ave been present for 2 days and indicates a pain score of Nonresponsive. MEDICAL/SURGICAL HISTORY: Non-responsive. Non-responsive. RADIATION DOSE: 43.53 CTDI (mGy) COMPARISON: [facility] [place], CT HEAD W/O CONTRAST, 09/16/2018. . TECHNIQUE: CT of the head without contrast. Using automated exposure control and adjustment of the mA and/or kV according to patient size, radiation dose was kept as low as reasonably achievable to ob tain optimal diagnostic quality images. DICOM format image data is available electronically for revi ew and comparison. FINDINGS: Cerebrum: Minimal subarachnoid blood persists over the left posterior sylvian region. Small amount o f contusion is seen in the orbital frontal regions just above the cribriform plate bilaterally. This has progressed minimally in the interval. The small subdural hematoma is now all but in apparent. Patrick tricular size is appropriate. There is no significant edema midline shift. Posterior Fossa: The cerebellum and brainstem are intact. The 4th ventricle is midline. The cerebe llopontine angle is unremarkable. Small nondisplaced left occipital fracture again noted. CONCLUSION: 1. Slight increase in the amount of orbital frontal contusion sitting just above the cribriform plat e 2. Small previous described subdural hematomas gallbladder. 3. Minimal subarachnoid blood persists high left parietal region 4. There is no significant edema or midline shift. . Electronically signed by: Oj Betts MD Board Certified Radiologist 09/17/2018 8:14 AM EST
--- NOTE | 2018-09-17 09:24 | P.PNNS ---
Subjective Interval history: 68's yoM who fell off the roof while cleaning the gutters. +LOC. Imaging shows mild traumatic subarachnoid hemorrhage left frontal (post-contrast delay from other scans creates an artifact). CT C-spine negative. Patient GCS 14, mildly confused, otherwise answers appropriately and moves all extremities with full strength. Has an occipital bone fracture (right) right occipital hematoma (subgaleal, extracranial) without break in the skin, and right first rib fracture. 09/17/2018 HD#1 No overnight events Physical Exam Vital signs: Vital Signs 09/16/18 18:27 09/16/18 19:43 09/16/18 20:00 Temperature 98.4 F Pulse Rate 93 H 89 Respiratory Rate 22 17 Blood Pressure Pulse Oximetry 100 98 97 09/16/18 20:04 09/16/18 20:14 09/16/18 20:34 Temperature Pulse Rate 90 94 H 98 H Respiratory Rate 18 25 H 22 Blood Pressure 164/101 H 166/95 H 165/84 H Pulse Oximetry 97 95 98 09/16/18 21:00 09/16/18 21:04 09/16/18 21:17 Temperature Pulse Rate 95 H 95 H 98 H Respiratory Rate 18 18 16 Blood Pressure 136/77 Pulse Oximetry 96 97 09/16/18 21:34 09/16/18 22:00 09/16/18 22:04 Temperature Pulse Rate 97 H 100 H 99 H Respiratory Rate 19 17 18 Blood Pressure 139/71 120/75 Pulse Oximetry 97 97 96 09/16/18 22:34 09/16/18 23:00 09/16/18 23:04 Temperature Pulse Rate 97 H 96 H 96 H Respiratory Rate 16 15 15 Blood Pressure 130/77 130/74 Pulse Oximetry 97 96 96 09/16/18 23:34 09/17/18 00:00 09/17/18 00:05 Temperature 98.4 F Pulse Rate 94 H 98 H 100 H Respiratory Rate 15 22 25 H Blood Pressure 121/80 128/91 H Pulse Oximetry 95 97 97 09/17/18 00:34 09/17/18 01:00 09/17/18 01:04 Temperature Pulse Rate 113 H 125 H 121 H Respiratory Rate 26 H 24 19 Blood Pressure 139/96 H 208/92 H Pulse Oximetry 97 95 94 L 09/17/18 01:22 09/17/18 01:34 09/17/18 02:00 Temperature Pulse Rate 120 H 118 H 120 H Respiratory Rate 30 H 18 21 Blood Pressure 176/108 H 157/83 H Pulse Oximetry 95 96 09/17/18 02:04 09/17/18 03:00 09/17/18 03:04 Temperature Pulse Rate 124 H 97 H 95 H Respiratory Rate 23 15 15 Blood Pressure 176/93 H 90/53 L Pulse Oximetry 96 92 L 92 L 09/17/18 03:09 09/17/18 03:22 09/17/18 03:23 Temperature Pulse Rate 86 87 Respiratory Rate 14 14 14 Blood Pressure 78/50 L 83/52 L Pulse Oximetry 91 L 91 L 09/17/18 03:34 09/17/18 03:40 09/17/18 03:49 Temperature Pulse Rate 90 88 84 Respiratory Rate 15 14 14 Blood Pressure 72/47 L 77/51 L 73/47 L Pulse Oximetry 95 95 95 09/17/18 03:59 09/17/18 04:00 09/17/18 04:04 Temperature 98.4 F Pulse Rate 98 H 100 H 104 H Respiratory Rate 19 23 18 Blood Pressure 159/99 H 156/81 H Pulse Oximetry 97 98 97 09/17/18 04:12 09/17/18 04:19 09/17/18 04:34 Temperature Pulse Rate 110 H 115 H 110 H Respiratory Rate 16 24 Blood Pressure 168/121 H 176/84 H Pulse Oximetry 97 96 09/17/18 04:49 09/17/18 05:00 09/17/18 05:04 Temperature Pulse Rate 92 H 89 87 Respiratory Rate 15 14 14 Blood Pressure 118/59 L 106/51 L Pulse Oximetry 95 95 95 09/17/18 05:19 09/17/18 05:23 09/17/18 05:34 Temperature Pulse Rate 85 85 84 Respiratory Rate 15 14 15 Blood Pressure 94/53 L 100/58 L 93/51 L Pulse Oximetry 94 L 94 L 94 L 09/17/18 08:22 09/17/18 08:23 Temperature Pulse Rate 80 Respiratory Rate 15 Blood Pressure Pulse Oximetry 96 Intake & Output 09/16/18 09/17/18 09/17/18 18:59 06:59 18:59 Intake Total 50 / 50 1300 / 1300 Output Total 675 / 675 Balance 50 / 50 625 / 625 Weight 84.8 kg Intake: IV 50 / 50 1200 / 1200 NS Inj 1,000 ML @ 100 mls/hr IV 1000 / 1000 .CONT .Q10H [facility] Rx#:[id number] Ofirmev Inj 1,000 mg In 100 ml 200 / 200 @ 400 mls/hr IV.SIG Q6H [facility] Rx# :[id number] Ancef 2 GM Premix Inj 2 gm In 50 / 50 50 ml @ 0 mls/hr IV.SIG .STK- MED ONE Rx#:[id number] Oral 100 / 100 Output: Emesis 50 / 50 Urine Amount (Catheter) / 625 Indwelling Urethral Catheter / 625 Other: # Emeses 1 Weight On Admission 86.5 kg - Constitutional no acute distress, average body habitus - Routine HEENT Exam Head: Present: normocephalic, atraumatic, tenderness of temporal artery Eye: Present: EOMI, normal accommodation ENT: Present: mucous membranes moist, oropharynx clear, nares patent, external ear normal, TM's clear bilaterally - Routine Neck Exam Present: supple, full ROM, trachea midline - Routine Respiratory Exam Present: CTA bilaterally - Routine Cardiovascular Exam Present: RRR - Routine Abdominal Exam Present: soft, normoactive bowel sounds - Routine Extremities Exam Comments: Negative clubbing, cyanosis or edema - Routine Skin Exam Present: intact, warm, normal turgor - Routine Neurological Exam Present: alert, oriented X3, CN II-XII intact, normal reflexes, moving all extremities, normal tone, vision grossly intact, hearing grossly intact, normal speech - Detailed Neurological Exam: Coma Scale Eye Opening: Spontaneous Verbal Response: Oriented Motor Response: Obey commands [place] Coma Scale Total: 15 - Routine Psychiatric Exam Present: normal affect, normal thought process, cooperative - Urinary Catheter Management Indwelling Urethral Catheter Cath placed during this visit: no Assessment and Plan - Plan HD#1 68'sM fall off roof with +LOC, traumatic SAH. Plan: repeat CT shows resolving minor acute SAH and SDH OOB to chair PT/OT NeuroPsych for TBI May transfer to floor.
[2018-09-17] MEDS ORDERED: Morphine Inj 4 MG/ML Vial IV.PUSH PRN (09:45)
[2018-09-17] MEDS: Senna/Docusate Sodium 8.6/50 MG Tablet PO SCH ×2 (10:44→21:27)
[2018-09-17] MEDS: levETIRAcetam 500 MG Tablet PO SCH ×2 (10:44→21:27)
--- NOTE | 2018-09-17 12:14 | P.CONREH ---
History of Present Illness Service: Physical medicine and rehabilitation Consult date: 09/17/18 Reason for Consult: Comprehensive rehabilitation evaluation Primary Care Provider: UNKNOWN History of Present Illness: Alan Meza is a 63-year-old [id number] male admitted to [facility] 09/16/18 after a fall from a roof while cleaning gutters. Dileep Coma Scale was 14. Head CT 09/16/17 showed: tiny left subdural hematoma measuring up to about 3 mm in thickness without mass effect or midline shift, small subarachnoid hemorrhage and probable minimal hemorrhagic contusion in the upper left frontal lobe and left temporal region and soft tissue swelling in the right occipital region with hairline nondisplaced fracture of the right occipital bone. Chest CT 09/16/17 showed fractures of the right third through sixth ribs and right 11th rib nondisplaced. He is noted to have small pulmonary contusion with small pneumothorax on the right. This was treated conservatively. Thoracic spine CT 09/16/17 showed fractures of right third through sixth ribs and right 11th rib fracture with dilated esophagus with esophageal motility disorder. Patient was evaluated by neurosurgery. He is cleared to be out of bed to chair. Follow-up head CT 09/17/17 showed: Slight increase in the amount of orbital frontal contusion just above the cribriform plate, small previously described subdural hematomas, minimal subarachnoid blood in the high left parietal region. No significant edema or midline shift. Review of Systems Constitutional: Reports headache(s) (Mild) Eyes: Denies change in vision Ears, Nose, Mouth, and Throat: Denies abnormal hearing Cardiovascular: Reports chest pain (In the area of rib fractures), Denies shortness of breath Respiratory: Denies shortness of breath Gastrointestinal: Denies abdominal pain PMFSH - History History Provided By: Patient - Medical / Surgical Hx Neg / Unobtainable Medical Problems Denied: Unable to Obtain Surgical History: Unable to Obtain - Tobacco History Second Hand Smoke Exposure: No Smoking Status: Never smoker - Alcohol History How Often Do You Have a Drink Containing Alcohol: 2 to 3 times a week - Substance Use History Substance History: No History of Abuse Medications and Allergies Active Medications: Active Medications Al Hydroxide/Mg Hydroxide (Milk Of Magnesia Liq) 30 ml PO BID [facility] Last Admin: 09/17/18 10:44 Dose: 30 ml Albuterol (Duoneb Neb (Prn)) 1 ampul NEB Q2HR NEB PRN PRN Reason: WHEEZING Albuterol (Duoneb Neb (Raquel)) 1 ampul NEB Q6HR NEB [facility] Last Admin: 09/17/18 08:20 Dose: 1 ampul Bacitracin (Baciguent Oint) 1 applicatio TOPICAL BID [facility] Last Admin: 09/17/18 10:44 Dose: 1 applicatio Chlorhexidine Gluconate (Chlorhexidine 2% Cloth) 3 pack TOPICAL DAILY@0400 [facility] Stop: 09/22/18 03:59 Last Admin: 09/17/18 05:46 Dose: 3 pack Chlorhexidine Gluconate (Chlorhexidine 2% Cloth) 3 pack TOPICAL DAILY@0400 PRN PRN Reason: Extra cloth needed Stop: 09/22/18 03:59 Enalaprilat (Vasotec Inj) 1.25 mg IV.PUSH Q8H PRN PRN Reason: Blood pressure 180/95 Haloperidol Lactate (Haldol Inj) 2 mg IV.PUSH Q4H PRN PRN Reason: AGITATION Sodium Chloride (Ns Inj) 1,000 mls @ 100 mls/hr IV.CONT .Q10H [facility] Last Admin: 09/17/18 06:00 Dose: 100 mls/hr Acetaminophen (Ofirmev Inj) 1,000 mg in 100 mls @ 400 mls/hr IV.SIG Q6H [facility] Stop: 09/18/18 03:14 Last Infusion: 09/17/18 11:09 Dose: Infused Magnesium Sulfate 4 gm/ Sodium (Chloride) 100 mls @ 50 mls/hr IV.SIG UNSCH PRN PRN Reason: For Magnesium 0.9 - 1.1 mg/dL Magnesium Sulfate 2 gm/ Sodium (Chloride) 100 mls @ 50 mls/hr IV.SIG UNSCH PRN PRN Reason: For Magnesium 1.2 - 1.6 mg/dL Potassium Chloride (Kcl 40 Meq Premix Inj) 40 meq in 100 mls @ 25 mls/hr IV.SIG Q2H PRN PRN Reason: For Potassium 2.8 - 3.2 mEq/L Potassium Chloride (Kcl 20 Meq Premix Inj) 20 meq in 100 mls @ 50 mls/hr IV.SIG Q2H PRN PRN Reason: For Potassium 3.3 - 3.5 mEq/L Potassium Chloride (Kcl 40 Meq Premix Inj) 40 meq in 100 mls @ 25 mls/hr IV.SIG UNSCH PRN PRN Reason: For Potassium 3.3 - 3.5 mEq/L Potassium Chloride (Kcl 20 Meq Premix Inj) 20 meq in 100 mls @ 50 mls/hr IV.SIG Q2H PRN PRN Reason: For Potassium 2.8 - 3.2 mEq/L Potassium Phosphate 30 mmol/ (Sodium Chloride) 260 mls @ 42 mls/hr IV.SIG UNSCH PRN PRN Reason: SEE LABEL COMMENTS Sodium Phosphate 30 mmol/ (Sodium Chloride) 260 mls @ 42 mls/hr IV.SIG UNSCH PRN PRN Reason: For Phosphorus < 2.5 mg/dL Dexmedetomidine HCl 200 mcg/ (Sodium Chloride) 50 mls @ 4.32 mls/hr IV.CONT TITRATE PRN; Protocol PRN Reason: Per Protocol Last Titration: 09/17/18 05:00 Dose: 0.2 mcg/kg/hr, 4.32 mls/hr Acetaminophen (Ofirmev Inj) 1,000 mg in 100 mls @ 400 mls/hr IV.SIG Q6H [facility] Stop: 09/18/18 16:14 Lactulose (Lactulose Liq) 30 ml PO DAILY PRN PRN Reason: CONSTIPATION Levetiracetam (Keppra) 500 mg PO BID [facility] Last Admin: 09/17/18 10:44 Dose: 500 mg Lidocaine HCl (Lidoderm 5% Patch.12 Hr) 1 patch T-DERMAL DAILY@2100 [facility] Last Admin: 09/16/18 22:15 Dose: Not Given Magnesium Oxide (Mag-Ox) 800 mg PO UNSCH PRN PRN Reason: For Magnesium 1.2 - 1.6 mg/dL Methocarbamol (Robaxin) 500 mg PO Q8HR [facility] Last Admin: 09/17/18 05:46 Dose: Not Given Morphine Sulfate (Morphine Inj) 2 mg IV.PUSH Q3H PRN PRN Reason: BREAKTHROUGH PAIN Ondansetron HCl (Zofran Inj) 4 mg IV.PUSH Q6H PRN PRN Reason: NAUSEA OR VOMITING Last Admin: 09/16/18 22:00 Dose: 4 mg Oxycodone HCl (Roxicodone) 5 mg PO Q4H PRN PRN Reason: PAIN >3 Pantoprazole Sodium (Protonix Inj) 40 mg IV.PUSH Q24H [facility] Last Admin: 09/16/18 20:47 Dose: 40 mg Patch Removal (Remove Old Patch) 1 each T-DERMAL DAILY [facility] Last Admin: 09/17/18 10:47 Dose: 1 each Potassium Bicarb/Potassium Chloride (K-Lyte Cl Eff) 50 meq PO UNSCH PRN PRN Reason: For Potassium 3.3 - 3.5 mEq/L Potassium Phosphate (K-Phos Original) 2,000 mg PO Q4H PRN PRN Reason: Phosphorus Less Than 2.5 mg/dL Potassium Phosphate (K-Phos Original) 2,000 mg PO UNSCH PRN PRN Reason: SEE LABEL COMMENTS Senna/Docusate Sodium (Imani-Colace) 1 tab PO BID [facility] Last Admin: 09/17/18 10:44 Dose: 1 tab Sodium Chloride (Ns Flush) 2 ml IV.FLUSH UNSCH PRN PRN Reason: FLUSH AFTER USING IV ACCESS Allergies Allergy/AdvReac Type Severity Reaction Status Date / Time No Known Allergies Allergy Verified 09/16/18 18:46 Home Medications Medication Instructions Recorded Confirmed Type No Known Home Medications 09/16/18 09/16/18 History Exam - Physical Examination Vital Signs / I&O: Vital Signs 09/16/18 18:27 09/16/18 19:43 09/16/18 20:00 Temperature 98.4 F Pulse Rate 93 H 89 Respiratory Rate 22 17 Blood Pressure Pulse Oximetry 100 98 97 09/16/18 20:04 09/16/18 20:14 09/16/18 20:34 Temperature Pulse Rate 90 94 H 98 H Respiratory Rate 18 25 H 22 Blood Pressure 164/101 H 166/95 H 165/84 H Pulse Oximetry 97 95 98 09/16/18 21:00 09/16/18 21:04 09/16/18 21:17 Temperature Pulse Rate 95 H 95 H 98 H Respiratory Rate 18 18 16 Blood Pressure 136/77 Pulse Oximetry 96 97 09/16/18 21:34 09/16/18 22:00 09/16/18 22:04 Temperature Pulse Rate 97 H 100 H 99 H Respiratory Rate 19 17 18 Blood Pressure 139/71 120/75 Pulse Oximetry 97 97 96 09/16/18 22:34 09/16/18 23:00 09/16/18 23:04 Temperature Pulse Rate 97 H 96 H 96 H Respiratory Rate 16 15 15 Blood Pressure 130/77 130/74 Pulse Oximetry 97 96 96 09/16/18 23:34 09/17/18 00:00 09/17/18 00:05 Temperature 98.4 F Pulse Rate 94 H 98 H 100 H Respiratory Rate 15 22 25 H Blood Pressure 121/80 128/91 H Pulse Oximetry 95 97 97 09/17/18 00:34 09/17/18 01:00 09/17/18 01:04 Temperature Pulse Rate 113 H 125 H 121 H Respiratory Rate 26 H 24 19 Blood Pressure 139/96 H 208/92 H Pulse Oximetry 97 95 94 L 09/17/18 01:22 09/17/18 01:34 09/17/18 02:00 Temperature Pulse Rate 120 H 118 H 120 H Respiratory Rate 30 H 18 21 Blood Pressure 176/108 H 157/83 H Pulse Oximetry 95 96 09/17/18 02:04 09/17/18 03:00 09/17/18 03:04 Temperature Pulse Rate 124 H 97 H 95 H Respiratory Rate 23 15 15 Blood Pressure 176/93 H 90/53 L Pulse Oximetry 96 92 L 92 L 09/17/18 03:09 09/17/18 03:22 09/17/18 03:23 Temperature Pulse Rate 86 87 Respiratory Rate 14 14 14 Blood Pressure 78/50 L 83/52 L Pulse Oximetry 91 L 91 L 09/17/18 03:34 09/17/18 03:40 09/17/18 03:49 Temperature Pulse Rate 90 88 84 Respiratory Rate 15 14 14 Blood Pressure 72/47 L 77/51 L 73/47 L Pulse Oximetry 95 95 95 09/17/18 03:59 09/17/18 04:00 09/17/18 04:04 Temperature 98.4 F Pulse Rate 98 H 100 H 104 H Respiratory Rate 19 23 18 Blood Pressure 159/99 H 156/81 H Pulse Oximetry 97 98 97 09/17/18 04:12 09/17/18 04:19 09/17/18 04:34 Temperature Pulse Rate 110 H 115 H 110 H Respiratory Rate 16 24 Blood Pressure 168/121 H 176/84 H Pulse Oximetry 97 96 09/17/18 04:49 09/17/18 05:00 09/17/18 05:04 Temperature Pulse Rate 92 H 89 87 Respiratory Rate 15 14 14 Blood Pressure 118/59 L 106/51 L Pulse Oximetry 95 95 95 09/17/18 05:19 09/17/18 05:23 09/17/18 05:34 Temperature Pulse Rate 85 85 84 Respiratory Rate 15 14 15 Blood Pressure 94/53 L 100/58 L 93/51 L Pulse Oximetry 94 L 94 L 94 L 09/17/18 07:34 09/17/18 07:49 09/17/18 08:00 Temperature 98.0 F Pulse Rate 74 79 84 Respiratory Rate 14 14 11 L Blood Pressure 100/59 L 135/79 Pulse Oximetry 95 97 98 09/17/18 08:04 09/17/18 08:19 09/17/18 08:22 Temperature Pulse Rate 83 83 80 Respiratory Rate 11 L 15 Blood Pressure 122/71 124/73 Pulse Oximetry 98 98 09/17/18 08:23 09/17/18 08:34 09/17/18 08:49 Temperature Pulse Rate 94 H 89 Respiratory Rate 14 12 Blood Pressure 133/77 121/60 Pulse Oximetry 96 99 96 09/17/18 09:00 09/17/18 09:04 09/17/18 09:19 Temperature Pulse Rate 96 H 89 86 Respiratory Rate 23 12 12 Blood Pressure 119/65 109/58 L Pulse Oximetry 98 96 96 09/17/18 09:34 09/17/18 09:49 09/17/18 10:00 Temperature Pulse Rate 92 H 85 92 H Respiratory Rate 14 13 18 Blood Pressure 121/63 110/57 L Pulse Oximetry 97 95 99 09/17/18 10:04 09/17/18 10:19 09/17/18 10:34 Temperature Pulse Rate 90 87 80 Respiratory Rate 15 13 13 Blood Pressure 142/77 H 135/72 127/69 Pulse Oximetry 99 98 98 Intake & Output 09/16/18 09/17/18 09/17/18 18:59 06:59 18:59 Intake Total 50 / 50 1300 / 1300 100 / 100 Output Total 675 / 675 Balance 50 / 50 625 / 625 100 / 100 Weight 84.8 kg Intake: IV 50 / 50 1200 / 1200 100 / 100 NS Inj 1,000 ML @ 100 mls/hr IV 1000 / 1000 .CONT .Q10H [facility] Rx#:[id number] Ofirmev Inj 1,000 mg In 100 ml 200 / 200 100 / 100 @ 400 mls/hr IV.SIG Q6H [facility] Rx# :[id number] Ancef 2 GM Premix Inj 2 gm In 50 / 50 50 ml @ 0 mls/hr IV.SIG .ST[facility] Rx#:[id number] Oral 100 / 100 Output: Emesis 50 / 50 Urine Amount (Catheter) 625 / 625 Indwelling Urethral Catheter 625 / 625 Other: # Emeses 1 Weight On Admission 86.5 kg Intake & Output 09/15/18 09/16/18 09/17/18 09/18/18 06:59 06:59 06:59 06:59 Intake Total 1350 / 1350 100 / 100 Output Total 675 / 675 Balance 675 / 675 100 / 100 Weight 84.8 kg General: No acute distress Respiratory: Lungs CTA, Non-labored respirations, BS equal, Coarse breath sounds , Other Gastrointestinal: Positive bowel sounds, Non-distended, Non-tender Cardiovascular: Normal rate, No edema, Regular rhythm Skin: No rash Musculoskeletal: ROM - Neurologic Orientation: oriented to: Self, disoriented to: Place, Time, Situation Neurologic: Pupils (PERRLA), EOM, Facial symmetry (Symmetric), Speech (Fluent but confused with some word finding difficulties) Motor: Right Upper Extremity (Grossly 5/5), Left Upper Extremity (Grossly 5/5), Right Lower Extremity (5/5 grossly), Left Lower Extremity (5/5 grossly) Sensory: Grossly intact to light touch in both upper and lower extremities DTRs: Normal Babinski: Negative Clonus: Negative Results - Labs CBC & Chem 7: 09/17/18 02:40 09/17/18 02:40 Labs: Laboratory Results - last 24 hr 09/16/18 09/16/18 09/16/18 18:15 18:15 18:15 WBC 11.1 H RBC 5.29 Hgb 15.9 POC Hgb (Calc) 15.6 Hct 45.9 POC Hct 46.0 MCV 86.7 MCH 30.1 MCHC 34.7 RDW 14.2 Plt Count 139 L MPV 7.9 Neut % (Auto) 68.7 Lymph % (Auto) 24.1 Rush % (Auto) 5.6 Eos % (Auto) 1.1 Baso % (Auto) 0.5 Neut # (Auto) 7.6 Lymph # (Auto) 2.7 Rush # (Auto) 0.6 Eos # (Auto) 0.1 Baso # (Auto) 0.1 WBC Differential . Differential Comment Auto diff final PT 10.2 INR 1.0 APTT 24.5 POC Sodium 145 H Sodium POC Potassium 3.8 Potassium POC Chloride 106 Chloride Carbon Dioxide Anion Gap POC BUN 19 BUN Creatinine POC Creatinine 1.3 Estimated GFR POC Glucose 98 Random Glucose Calcium Total Bilirubin AST ALT Alkaline Phosphatase Total Protein Albumin Nasal Screen MRSA (PCR) Blood Type Antibody Screen 09/16/18 09/16/18 09/17/18 18:15 21:00 02:40 WBC 14.4 H RBC 4.78 Hgb 14.4 POC Hgb (Calc) Hct 40.8 POC Hct MCV 85.5 MCH 30.1 MCHC 35.2 RDW 14.0 Plt Count 116 L MPV 8.6 Neut % (Auto) 92.9 H Lymph % (Auto) 2.9 L Rush % (Auto) 4.1 Eos % (Auto) 0.0 Baso % (Auto) 0.1 Neut # (Auto) 13.4 H Lymph # (Auto) 0.4 L Rush # (Auto) 0.6 Eos # (Auto) 0.0 Baso # (Auto) 0.0 WBC Differential . Differential Comment Auto diff final PT INR APTT POC Sodium Sodium POC Potassium Potassium POC Chloride Chloride Carbon Dioxide Anion Gap POC BUN BUN Creatinine POC Creatinine Estimated GFR POC Glucose Random Glucose Calcium Total Bilirubin AST ALT Alkaline Phosphatase Total Protein Albumin Nasal Screen MRSA (PCR) Not detected Blood Type A Positive Antibody Screen Negative 09/17/18 02:40 WBC RBC Hgb POC Hgb (Calc) Hct POC Hct MCV MCH MCHC RDW Plt Count MPV Neut % (Auto) Lymph % (Auto) Rush % (Auto) Eos % (Auto) Baso % (Auto) Neut # (Auto) Lymph # (Auto) Rush # (Auto) Eos # (Auto) Baso # (Auto) WBC Differential Differential Comment PT INR APTT POC Sodium Sodium 142 POC Potassium Potassium 3.9 POC Chloride Chloride 110 H Carbon Dioxide 22.8 Anion Gap 9 POC BUN BUN 20 H Creatinine 1.23 POC Creatinine Estimated GFR 51 L POC Glucose Random Glucose 175 H Calcium 8.1 L Total Bilirubin 0.9 AST 39 H ALT 27 Alkaline Phosphatase 51 Total Protein 7.0 Albumin 3.6 Nasal Screen MRSA (PCR) Blood Type Antibody Screen - Imaging Impressions Abdomen/Pelvis CT 09/16/18 18:21 CONCLUSION: 1. Fractures of the right 11th rib and right first through fourth transverse processes of the lumbar spine. 2. No solid visceral injury identified within the abdomen. Cervical Spine CT 09/16/18 18:21 CONCLUSION: 1. No cervical spine fracture identified. 2. Nondisplaced fractures of the medial right first rib and right occipital bone. Chest CT 09/16/18 18:21 CONCLUSION: 1. Fractures of the right third through sixth rib and right 11th rib, nondisplaced with minimal right posterior lung thorax. 2. Dilated esophagus with esophageal motility disorder. Face CT 09/16/18 18:21 CONCLUSION: 1. No acute facial bone fracture. Head CT 09/16/18 18:21 CONCLUSION: 1. Tiny left subdural hematoma measuring up to about 3 mm in thickness without mass effect or midline shift. 2. Small subarachnoid hemorrhage and probable minimal hemorrhagic contusion in the upper left frontal lobe and left temporal region. 3. Soft tissue swelling in the right occipital region with a hairline nondisplaced fracture of the right occipital bone. . Lumbar Spine CT 09/16/18 18:21 CONCLUSION: EXAM DATE: 09/16/2018 7:28 PM EST AGE/SEX: 89 years / Male INDICATIONS: Trauma alert. Fell off a roof. CLINICAL DATA: This is the patient's initial encounter. Patient reports that signs and symptoms have been present for 1 day and indicates a pain score of Nonresponsive. MEDICAL/SURGICAL HISTORY: Non-responsive. Non-responsive. RADIATION DOSE: . CTDI (mGy) ; Reconstructed from previous dataset, no dose COMPARISON: No prior exams available for comparison. TECHNIQUE: Contiguous axial images were acquired using a multirow detector CT scanner after intravenous administration of 97 ml Omnipaque 350 (iohexol) nonionic water-soluble contrast as a cumulative dose for multiple exams. Multiplanar reconstruction in the sagittal and coronal planes was performed. Using automated exposure control and adjustment of the mA and/or kV according to patient size, radiation dose was kept as low as reasonably achievable to obtain optimal diagnostic quality images. DICOM format image data is available electronically for review and comparison. FINDINGS: No thoracic vertebral body fractures are identified. CONCLUSION: EXAM DATE: 09/16/2018 7:28 PM EST AGE/SEX: 89 years / Male INDICATIONS: Trauma alert. Fell off a roof. CLINICAL DATA: This is the patient's initial encounter. Patient reports that signs and symptoms have been present for 1 day and indicates a pain score of Nonresponsive. MEDICAL/SURGICAL HISTORY: Non-responsive. Non-responsive. RADIATION DOSE: . CTDI (mGy) ; Reconstructed from previous dataset, no dose COMPARISON: No prior exams available for comparison. TECHNIQUE: Multiple contiguous axial images were obtained through the chest during bolus infusion of 97 ml Omnipaque 350 (iohexol) nonionic water-soluble contrast as a cumulative dose for multiple exams. Images were obtained in suspended respiration using multiple row detector helical technique. Using automated exposure control and adjustment of the mA and/or kV according to patient size, radiation dose was kept as low as reasonably achievable to obtain optimal diagnostic quality images. DICOM format image data is available electronically for review and comparison. FINDINGS: No fractures of the right third through sixth ribs on the right 11th rib, nondisplaced. No pneumothorax. Minimal lung contusion on the right posteriorly. Trace extrapleural hemorrhage. There is no mediastinal hematoma or evidence for traumatic aortic injury. The esophagus is abnormally dilated characteristic of esophageal motility disorder. CONCLUSION: 1. Fractures of the right third through sixth rib and right 11th rib, nondisplaced with minimal right posterior lung contusion 2. Dilated esophagus with esophageal motility disorder. Thoracic Spine CT 09/16/18 18:21 CONCLUSION: EXAM DATE: 09/16/2018 7:24 PM EST AGE/SEX: 89 years / Male INDICATIONS: Trauma. Fell off a roof. CLINICAL DATA: This is the patient's initial encounter. Patient reports that signs and symptoms have been present for 1 day and indicates a pain score of Nonresponsive. MEDICAL/SURGICAL HISTORY: Non-responsive. Non-responsive. RADIATION DOSE: . CTDI (mGy) ; Reconstructed from previous dataset, no dose COMPARISON: No prior exams available for comparison. TECHNIQUE: Multiple contiguous axial images were obtained through the chest during bolus infusion of 96 ml Omnipaque 350 (iohexol) nonionic water-soluble contrast as a single exam dose. Images were obtained in suspended respiration using multiple row detector helical technique. Using automated exposure control and adjustment of the mA and/or kV according to patient size, radiation dose was kept as low as reasonably achievable to obtain optimal diagnostic quality images. DICOM format image data is available electronically for review and comparison. FINDINGS: No fractures of the right third through sixth ribs on the right 11th rib, nondisplaced. No pneumothorax. Minimal lung contusion on the right posteriorly. Trace extrapleural hemorrhage. There is no mediastinal hematoma or evidence for traumatic aortic injury. The esophagus is abnormally dilated characteristic of esophageal motility disorder. CONCLUSION: 1. Fractures of the right third through sixth rib and right 11th rib, nondisplaced with minimal right posterior lung contusion 2. Dilated esophagus with esophageal motility disorder. Chest X-Ray 09/17/18 06:00 CONCLUSION: No acute cardiopulmonary process. Head CT 09/17/18 06:00 CONCLUSION: 1. Slight increase in the amount of orbital frontal contusion sitting just above the cribriform plate 2. Small previous described subdural hematomas gallbladder. 3. Minimal subarachnoid blood persists high left parietal region 4. There is no significant edema or midline shift. . Assessment and Plan - Plan Assessment: 1. Fall with closed head injury including tiny left subdural hematoma, small subarachnoid hemorrhage and left orbital frontal contusion now [place] level 4 2. Right 3 through 6 and right 11th rib fractures with pulmonary contusion and small pneumothorax treated conservatively Recommendations: 1. Physical therapy consult to begin to mobilize patient. Per neurosurgery patient is cleared to be out of bed 2. Speech therapy to address swallow and cognition 3. Occupational therapy consult to address ADLs 4. Anticipate patient will need inpatient rehabilitation at discharge. Discussed with case management who is following 5. Monitor for agitation 6. Will follow while hospitalized and is appropriate at discharge Thank you for this consult
--- NOTE | 2018-09-17 13:33 | P.PNCC ---
Subjective Brief History: 74-year-old male fell off a roof while cleaning gutters and was transferred to our institution is priority 1 trauma alert. On arrival patient was awake alert but somewhat disoriented to repetitive and confused. Dileep Coma Scale about 13 and then came up to 14 Patient underwent full diagnostic and clinical workup and was found to have following injuries Left fronto-temporal sub-arachnoid bleed Right occipital skull fracture Right right third, fourth, fifth, sixth, seventh rib fracture Small pulmonary contusion and small hemothorax on the right Patient will be observed in the ICU neurosurgery is consulted and he will undergo repeat CT scan of the brain tomorrow 24 Hour Review/Hospital Course: 09/17 She is GCS is 14 time of my exam on low-dose of Precedex Overnight patient was agitated and was started on the Precedex Giving the natural of his injury frontal lobe and temporal frontal lobe contusions this is no surprise Patient also has multiple broken ribs and will require good pain control and pulmonary toilet There was evidence of esophageal motility disorder on the CT scan of the chest To be on safe side I will assess patient as swallow function for start him on a diet He will also need a GI follow-up outpatient basis Objective Vital Signs / I&O: Vital Signs 09/16/18 18:27 09/16/18 19:43 09/16/18 20:00 Temperature 98.4 F Pulse Rate 93 H 89 Respiratory Rate 22 17 Blood Pressure Pulse Oximetry 100 98 97 09/16/18 20:04 09/16/18 20:14 09/16/18 20:34 Temperature Pulse Rate 90 94 H 98 H Respiratory Rate 18 25 H 22 Blood Pressure 164/101 H 166/95 H 165/84 H Pulse Oximetry 97 95 98 09/16/18 21:00 09/16/18 21:04 09/16/18 21:17 Temperature Pulse Rate 95 H 95 H 98 H Respiratory Rate 18 18 16 Blood Pressure 136/77 Pulse Oximetry 96 97 09/16/18 21:34 09/16/18 22:00 09/16/18 22:04 Temperature Pulse Rate 97 H 100 H 99 H Respiratory Rate 19 17 18 Blood Pressure 139/71 120/75 Pulse Oximetry 97 97 96 09/16/18 22:34 09/16/18 23:00 09/16/18 23:04 Temperature Pulse Rate 97 H 96 H 96 H Respiratory Rate 16 15 15 Blood Pressure 130/77 130/74 Pulse Oximetry 97 96 96 09/16/18 23:34 09/17/18 00:00 09/17/18 00:05 Temperature 98.4 F Pulse Rate 94 H 98 H 100 H Respiratory Rate 15 22 25 H Blood Pressure 121/80 128/91 H Pulse Oximetry 95 97 97 09/17/18 00:34 09/17/18 01:00 09/17/18 01:04 Temperature Pulse Rate 113 H 125 H 121 H Respiratory Rate 26 H 24 19 Blood Pressure 139/96 H 208/92 H Pulse Oximetry 97 95 94 L 09/17/18 01:22 09/17/18 01:34 09/17/18 02:00 Temperature Pulse Rate 120 H 118 H 120 H Respiratory Rate 30 H 18 21 Blood Pressure 176/108 H 157/83 H Pulse Oximetry 95 96 09/17/18 02:04 09/17/18 03:00 09/17/18 03:04 Temperature Pulse Rate 124 H 97 H 95 H Respiratory Rate 23 15 15 Blood Pressure 176/93 H 90/53 L Pulse Oximetry 96 92 L 92 L 09/17/18 03:09 09/17/18 03:22 09/17/18 03:23 Temperature Pulse Rate 86 87 Respiratory Rate 14 14 14 Blood Pressure 78/50 L 83/52 L Pulse Oximetry 91 L 91 L 09/17/18 03:34 09/17/18 03:40 09/17/18 03:49 Temperature Pulse Rate 90 88 84 Respiratory Rate 15 14 14 Blood Pressure 72/47 L 77/51 L 73/47 L Pulse Oximetry 95 95 95 09/17/18 03:59 09/17/18 04:00 09/17/18 04:04 Temperature 98.4 F Pulse Rate 98 H 100 H 104 H Respiratory Rate 19 23 18 Blood Pressure 159/99 H 156/81 H Pulse Oximetry 97 98 97 09/17/18 04:12 09/17/18 04:19 09/17/18 04:34 Temperature Pulse Rate 110 H 115 H 110 H Respiratory Rate 16 24 Blood Pressure 168/121 H 176/84 H Pulse Oximetry 97 96 09/17/18 04:49 09/17/18 05:00 09/17/18 05:04 Temperature Pulse Rate 92 H 89 87 Respiratory Rate 15 14 14 Blood Pressure 118/59 L 106/51 L Pulse Oximetry 95 95 95 09/17/18 05:19 09/17/18 05:23 09/17/18 05:34 Temperature Pulse Rate 85 85 84 Respiratory Rate 15 14 15 Blood Pressure 94/53 L 100/58 L 93/51 L Pulse Oximetry 94 L 94 L 94 L 09/17/18 07:34 09/17/18 07:49 09/17/18 08:00 Temperature 98.0 F Pulse Rate 74 79 84 Respiratory Rate 14 14 11 L Blood Pressure 100/59 L 135/79 Pulse Oximetry 95 97 98 09/17/18 08:04 09/17/18 08:19 09/17/18 08:22 Temperature Pulse Rate 83 83 80 Respiratory Rate 11 L 15 Blood Pressure 122/71 124/73 Pulse Oximetry 98 98 09/17/18 08:23 09/17/18 08:34 09/17/18 08:49 Temperature Pulse Rate 94 H 89 Respiratory Rate 14 12 Blood Pressure 133/77 121/60 Pulse Oximetry 96 99 96 09/17/18 09:00 09/17/18 09:04 09/17/18 09:19 Temperature Pulse Rate 96 H 89 86 Respiratory Rate 23 12 12 Blood Pressure 119/65 109/58 L Pulse Oximetry 98 96 96 09/17/18 09:34 09/17/18 09:49 09/17/18 10:00 Temperature Pulse Rate 92 H 85 92 H Respiratory Rate 14 13 18 Blood Pressure 121/63 110/57 L Pulse Oximetry 97 95 99 09/17/18 10:04 09/17/18 10:19 09/17/18 10:34 Temperature Pulse Rate 90 87 80 Respiratory Rate 15 13 13 Blood Pressure 142/77 H 135/72 127/69 Pulse Oximetry 99 98 98 09/17/18 10:49 09/17/18 10:54 09/17/18 11:00 Temperature 98.3 F Pulse Rate 84 85 83 Respiratory Rate 11 L 28 H 16 Blood Pressure 128/73 126/73 Pulse Oximetry 99 99 99 09/17/18 11:04 09/17/18 11:19 09/17/18 11:34 Temperature Pulse Rate 85 75 72 Respiratory Rate 22 13 13 Blood Pressure 125/74 106/58 L 102/59 L Pulse Oximetry 99 96 96 09/17/18 11:49 09/17/18 12:00 09/17/18 12:04 Temperature Pulse Rate 69 69 69 Respiratory Rate 13 13 14 Blood Pressure 99/57 L 92/55 L Pulse Oximetry 96 96 96 Intake & Output 09/16/18 09/17/18 09/17/18 18:59 06:59 18:59 Intake Total 50 / 50 1300 / 1300 100 / 100 Output Total 675 / 675 Balance 50 / 50 625 / 625 100 / 100 Weight 84.8 kg Intake: IV 50 / 50 1200 / 1200 100 / 100 NS Inj 1,000 ML @ 100 mls/hr IV 1000 / 1000 .CONT .Q10H PAYAM Rx#:[id number] Ofirmev Inj 1,000 mg In 100 ml 200 / 200 100 / 100 @ 400 mls/hr IV.SIG Q6H PAYAM Rx# :[id number] Ancef 2 GM Premix Inj 2 gm In 50 / 50 50 ml @ 0 mls/hr IV.SIG .STK- MED ONE Rx#:[id number] Oral 100 / 100 Output: Emesis 50 / 50 Urine Amount (Catheter) 625 / 625 Indwelling Urethral Catheter 625 / 625 Other: # Emeses 1 Weight On Admission 86.5 kg Result Diagrams: 09/17/18 02:40 09/17/18 02:40 Imaging: Impressions Abdomen/Pelvis CT 09/16/18 18:21 CONCLUSION: 1. Fractures of the right 11th rib and right first through fourth transverse processes of the lumbar spine. 2. No solid visceral injury identified within the abdomen. Cervical Spine CT 09/16/18 18:21 CONCLUSION: 1. No cervical spine fracture identified. 2. Nondisplaced fractures of the medial right first rib and right occipital bone. Chest CT 09/16/18 18:21 CONCLUSION: 1. Fractures of the right third through sixth rib and right 11th rib, nondisplaced with minimal right posterior lung thorax. 2. Dilated esophagus with esophageal motility disorder. Face CT 09/16/18 18:21 CONCLUSION: 1. No acute facial bone fracture. Head CT 09/16/18 18:21 CONCLUSION: 1. Tiny left subdural hematoma measuring up to about 3 mm in thickness without mass effect or midline shift. 2. Small subarachnoid hemorrhage and probable minimal hemorrhagic contusion in the upper left frontal lobe and left temporal region. 3. Soft tissue swelling in the right occipital region with a hairline nondisplaced fracture of the right occipital bone. . Lumbar Spine CT 09/16/18 18:21 CONCLUSION: EXAM DATE: 09/16/2018 7:28 PM EST AGE/SEX: 89 years / Male INDICATIONS: Trauma alert. Fell off a roof. CLINICAL DATA: This is the patient's initial encounter. Patient reports that signs and symptoms have been present for 1 day and indicates a pain score of Nonresponsive. MEDICAL/SURGICAL HISTORY: Non-responsive. Non-responsive. RADIATION DOSE: . CTDI (mGy) ; Reconstructed from previous dataset, no dose COMPARISON: No prior exams available for comparison. TECHNIQUE: Contiguous axial images were acquired using a multirow detector CT scanner after intravenous administration of 97 ml Omnipaque 350 (iohexol) nonionic water-soluble contrast as a cumulative dose for multiple exams. Multiplanar reconstruction in the sagittal and coronal planes was performed. Using automated exposure control and adjustment of the mA and/or kV according to patient size, radiation dose was kept as low as reasonably achievable to obtain optimal diagnostic quality images. DICOM format image data is available electronically for review and comparison. FINDINGS: No thoracic vertebral body fractures are identified. CONCLUSION: EXAM DATE: 09/16/2018 7:28 PM EST AGE/SEX: 89 years / Male INDICATIONS: Trauma alert. Fell off a roof. CLINICAL DATA: This is the patient's initial encounter. Patient reports that signs and symptoms have been present for 1 day and indicates a pain score of Nonresponsive. MEDICAL/SURGICAL HISTORY: Non-responsive. Non-responsive. RADIATION DOSE: . CTDI (mGy) ; Reconstructed from previous dataset, no dose COMPARISON: No prior exams available for comparison. TECHNIQUE: Multiple contiguous axial images were obtained through the chest during bolus infusion of 97 ml Omnipaque 350 (iohexol) nonionic water-soluble contrast as a cumulative dose for multiple exams. Images were obtained in suspended respiration using multiple row detector helical technique. Using automated exposure control and adjustment of the mA and/or kV according to patient size, radiation dose was kept as low as reasonably achievable to obtain optimal diagnostic quality images. DICOM format image data is available electronically for review and comparison. FINDINGS: No fractures of the right third through sixth ribs on the right 11th rib, nondisplaced. No pneumothorax. Minimal lung contusion on the right posteriorly. Trace extrapleural hemorrhage. There is no mediastinal hematoma or evidence for traumatic aortic injury. The esophagus is abnormally dilated characteristic of esophageal motility disorder. CONCLUSION: 1. Fractures of the right third through sixth rib and right 11th rib, nondisplaced with minimal right posterior lung contusion 2. Dilated esophagus with esophageal motility disorder. Thoracic Spine CT 09/16/18 18:21 CONCLUSION: EXAM DATE: 09/16/2018 7:24 PM EST AGE/SEX: 89 years / Male INDICATIONS: Trauma. Fell off a roof. CLINICAL DATA: This is the patient's initial encounter. Patient reports that signs and symptoms have been present for 1 day and indicates a pain score of Nonresponsive. MEDICAL/SURGICAL HISTORY: Non-responsive. Non-responsive. RADIATION DOSE: . CTDI (mGy) ; Reconstructed from previous dataset, no dose COMPARISON: No prior exams available for comparison. TECHNIQUE: Multiple contiguous axial images were obtained through the chest during bolus infusion of 96 ml Omnipaque 350 (iohexol) nonionic water-soluble contrast as a single exam dose. Images were obtained in suspended respiration using multiple row detector helical technique. Using automated exposure control and adjustment of the mA and/or kV according to patient size, radiation dose was kept as low as reasonably achievable to obtain optimal diagnostic quality images. DICOM format image data is available electronically for review and comparison. FINDINGS: No fractures of the right third through sixth ribs on the right 11th rib, nondisplaced. No pneumothorax. Minimal lung contusion on the right posteriorly. Trace extrapleural hemorrhage. There is no mediastinal hematoma or evidence for traumatic aortic injury. The esophagus is abnormally dilated characteristic of esophageal motility disorder. CONCLUSION: 1. Fractures of the right third through sixth rib and right 11th rib, nondisplaced with minimal right posterior lung contusion 2. Dilated esophagus with esophageal motility disorder. Chest X-Ray 09/17/18 06:00 CONCLUSION: No acute cardiopulmonary process. Head CT 09/17/18 06:00 CONCLUSION: 1. Slight increase in the amount of orbital frontal contusion sitting just above the cribriform plate 2. Small previous described subdural hematomas gallbladder. 3. Minimal subarachnoid blood persists high left parietal region 4. There is no significant edema or midline shift. . Disinhibition Score: 21.00 Aggression Score: 14.00 Lability Score: 14.00 Agitated Behavior Total Score: 18 - Exam CEMENT LOADER: Score, score is 14 Hemodynamic/Cardiac: Hemodynamically patient is normal Pulmonary/Respiratory: Breath sounds are clear bilateral Abdomen/GI Nutrition: Abdomen is soft benign Assessment and Plan Plan: Continue to monitor patient in the ICU Continue to wean the Precedex with Haldol as needed Continue pain control Continue pulmonary toilet follow-up chest x-ray
[2018-09-17 17:56] LABS: Bacteria,Urine Rare /hpf; Bilirubin,Urine Negative (Negative); Clarity,Urine Hazy (Clear); Color,Urine Yellow (Yellw/Straw); Glucose,Urine (UA) Negative (Negative); Leukocyte Esterase,Urine Moderate (Negative); Mucus,Urine Few /lpf (Occasional); Nitrite,Urine Negative (Negative); Specific Gravity,Urine 1.033 (1.002-1.035); Squamous Epithelial Cell,Urine <1 /hpf (0-5)
[2018-09-17 17:57] LABS: Amphetamine Screen,Urine Neg (Neg); Barbiturate Screen,Urine Neg (Neg); Cannabinoid Screen,Urine Neg (Neg); Cocaine Screen,Urine Neg (Neg)
--- NOTE | 2018-09-17 18:03 | MB ---
cc: Otoniel Silveira MD DATE: 09/17/2018 HISTORY OF PRESENT ILLNESS: A 63-year-old left-handed man with some short-term memory problems for 3 years, otherwise he has been very healthy. Has had some REM sleep disorder according to his and then he was on the roof, on a ladder or both, it is unclear and fell off the roof. His heard him hit the ground. She came out. He was unconscious and then woke up a second or two later. His eyes had rolled back in his head initially. No seizure activity and I asked to see him for dementia. He has had known dementia for about 3 years. REVIEW OF SYSTEMS: He says he has a mild headache. He denies, and his denies, any hypertension, diabetes, hypercholesterolemia, CO, CABG, cardiac arrhythmia, renal, hepatic or pulmonary disease, thyroid disease, lupus, ulcer, cancer, seizure or stroke. His denied any history of tremors or Parkinson type symptoms. No shuffling. SOCIAL HISTORY: Nonsmoker or drinker, lives with his . FAMILY HISTORY: Negative for cancer or stroke. MEDICATION AT HOME: None listed. MEDICATION IN THE HOSPITAL: He got some: 1. Haldol last night. 2. Enalapril. 3. Keppra 500 b.i.d. 4. P.r.n. morphine. 5. Oxycodone p.r.n. 6. Soma. PHYSICAL EXAMINATION: VITAL SIGNS: Afebrile, 71, 14, 92/55. His lowest blood pressure 73/47 initially and then it went up to 176/84. It generally has been running about 120 systolic. There are no carotid bruits. HEART: Regular rate and rhythm. I did not detect a murmur. NEUROLOGIC: Pupils are equal. I could not see his disks well. Visual yeager are hard to tell whether they were full or not. He was inconsistent with counting fingers. His pupils are equal. Extraocular movements intact. No nystagmus. No granger sign. Pinprick was intact in the occiput bilaterally. Face is symmetric with normal sensation. Tongue was midline. He had normal strength in upper and lower extremities bilaterally. Toes downgoing bilaterally. DTRs are 2+ symmetric throughout. No ankle clonus. Pinprick appears to be intact throughout. He is awake and alert. Speech is fluent. He is not aphasic. He said the year was 1918, but it was September. He had a little bit of trouble coming up with his address. He said he moved in a few weeks ago, although he has been living there since December. LABORATORY STUDIES: His white count is 14. It was 11 yesterday. Otherwise normal. Basic metabolic profile has been essentially normal. BUN 20, GFR is normal. LFTs essentially unremarkable. Glucose 175. Coags normal. He had imaging and CAT scans of his entire spine. No fracture was noted. He had a medial right first rib nondisplaced fracture and right occipital bone. Chest CT: Fractures of the 3rd through 6th rib and right 11th rib. Esophageal dysmotility disorder. CT scan of the face: No bone fracture in the face. CT scan of the head: Tiny left subdural. Small subarachnoid hemorrhage. Minimal hemorrhagic contusion in the upper left frontal lobe and left temporal lobe. Soft tissue swelling in the right occipital region. Hairline fracture, nondisplaced. Review of the films: He has a hypodensity in the right cerebellum, although I am not sure if it is just an enlarged sulci are not. It is on the periphery. It looks like he has some atrophy of his brain throughout. He has a small possible contusion in the left frontal right region. Mastoids open bilaterally. Lumbar spine CT: Interpretation does not show anything major and nothing mentioned on the thoracic spine. CT either that was abnormal. He had a chest x-ray: Negative. He had a CAT scan of the brain followup today. Slight increase in the amount of the orbital contusion, minimal subarachnoid blood on the left, high left region. 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 We will check an MRI of the brain. Certainly, the contusion will not help his memory any. We can start him on some memory medicines in the future as an outpatient. We will check an EEG and MRI of the brain, and some blood work for dementia. Otherwise, he looks fairly well neurologically. Check his sleep tonight as he had a rough night last night. He can be discharged neurological guzman when cleared by the trauma team. MD DEE Foss/ml , 04:12 PM , 04:24 PM
[2018-09-17] MEDS ORDERED: Gadobutrol PF 10 MMOL/10 ML Vial (for RAD) IV.SIG ONE (18:09)
[2018-09-17 18:20] LABS: Opiate Screen,Urine Neg (Neg)
--- NOTE | 2018-09-17 18:20 | MR ---
EXAM DATE: 09/17/2018 6:11 PM EST AGE/SEX: 63 years / Male INDICATIONS: CVA. AMS, Confusion. CLINICAL DATA: This is the patient's initial encounter. Patient reports that signs and symptoms have been present for 2 days and indicates a pain score of 0/10. MEDICAL/SURGICAL HISTORY: None. None. COMPARISON: [facility] – [place], [place] HEAD W/O CONTRAST, 09/17/2018. [facility] [place], CT HEAD W/O CONTRAST, 09/16/2018. . TECHNIQUE: Multiplanar, multisequence examination of the brain was performed without and with 10 ml G adavist (gadobutrol) contrast as a single exam dose. FINDINGS: Cerebrum: The ventricles are normal for age. No evidence of midline shift, mass lesion, hemorrhage. Stability artifact in bifrontal lobes consistent with hemorrhage greater on the left. There is also bilateral subarachnoid hemorrhage No extraaxial fluid collections are seen. The pituitary gland and suprasellar cistern are normal in configuration. White Matter: Scattered T2 signal abnormalities are seen in the white matter. Posterior Fossa: Small right cerebellar infarct. The 4th ventricle is midline. The cerebellopontine angle is unremarkable. The cerebellar tonsils are normal in position. Diffusion Imaging: Restricted diffusion right cerebellum. Extracranial: The visualized portions of the orbits and paranasal sinuses are unremarkable. Post Contrast: No abnormal areas of parenchymal or dural enhancement. No evidence of blood-brain ba rrier breakdown. CONCLUSION: 1. Small bifrontal hemorrhages greater on the left. 2. Subarachnoid hemorrhage bilaterally. 3. Acute lacunar infarct right cerebellum. 4. Nonspecific white matter changes. Electronically signed by: Erwin Keita MD Board Certified Radiologist 09/17/2018 6:19 PM EST
--- NOTE | 2018-09-17 18:28 | MR ---
EXAM DATE: 09/17/2018 6:21 PM EST AGE/SEX: 63 years / Male INDICATIONS: . Arteritis. CLINICAL DATA: This is the patient's initial encounter. Patient reports that signs and symptoms have been present for 2 days and indicates a pain score of 0/10. MEDICAL/SURGICAL HISTORY: None. None. COMPARISON: No prior exams available for comparison. TECHNIQUE: 10 ml Gadavist (gadobutrol) contrast infused MRA (single exam dose) of the extracranial circulation was performed using a neurovascular coil. Postprocessing was performed, including rotati ng sub-volume maximum intensity projections of each carotid artery, rotating full-volume maximum inte nsity projections of both carotid arteries, sagittal and coronal sliding thin-slab reformations of ea ch carotid artery, and left oblique sliding thin-slab reformation through the aortic arch to include the origin of the arch branch vessels. FINDINGS: Aortic Arch : There is a three-vessel origin of the great vessels from the aorta. No evidence of o stial narrowing. Right Carotid : The common carotid artery is intact. The carotid bulb has a normal configuration wi thout ulceration or narrowing. The internal carotid artery lumen is smooth without stenosis. The ex ternal carotid artery is intact. Left Carotid : The common carotid artery is intact. The carotid bulb has a normal configuration wit hout ulceration or narrowing. The internal carotid artery lumen is smooth without stenosis. The ext ernal carotid artery is intact. Vertebrals : The vertebral arteries have a symmetric diameter. No stenotic lesions are seen. CONCLUSION: 1. Unremarkable carotid arteries. No stenosis or narrowing. Percent stenosis is calculated using the diameter of the stenotic region over the diameter of the nor mal distal internal carotid artery Electronically signed by: Erwin Keita MD Board Certified Radiologist 09/17/2018 6:27 PM EST
[2018-09-17 19:49] LABS: Folate 9.1 ng/mL (3.1-17.5); Free T4 (Free Thyroxine) 1.19 ng/dL (0.76-1.46); Thyroid Stimulating Hormone 0.313 uIU/mL (0.358-3.740); Vitamin B12 295 pg/mL (193-986)
[2018-09-17] MEDS: Pantoprazole Inj 40 MG Vial IV.PUSH SCH (21:27)
[2018-09-17] MEDS: Lidocaine 5% Patch T-DERMAL SCH (21:29)
[2018-09-18] MEDS: Dexmedetomidine Inj 200 MCG in Sodium Chlor 0.9% Inj 48 ML IV.CONT PRN ×3 (00:19→23:32)
[2018-09-18] MEDS: Chlorhexidine Gluconate 2% 1 Pack (2 Cloths) TOPICAL SCH (03:53)
--- NOTE | 2018-09-18 04:07 | XR ---
EXAM DATE: 09/18/2018 3:55 AM EST AGE/SEX: 63 years / Male INDICATIONS: Shortness of breath. CLINICAL DATA: This is the patient's subsequent encounter. Patient reports that signs and symptoms h ave been present for 3 days and indicates a pain score of Nonresponsive. MEDICAL/SURGICAL HISTORY: Non-responsive. Non-responsive. [place] [facility] [place]. . FINDINGS: A single AP view of the chest demonstrates the lungs to be symmetrically aerated without evidence of mass, infiltrate or effusion. The cardiomediastinal contours are unremarkable. Osseous structures a re intact. CONCLUSION: No acute cardiopulmonary process. Electronically signed by: Giorgi Machado MD Board Certified Radiologist 09/18/2018 4:05 AM EST
[2018-09-18 06:07] LABS: Baso % (Auto) 0.1 % (0.0-2.0); Eos % (Auto) 0.1 % (0.0-4.0); Hematocrit 34.7 % (39.0-51.0); Hemoglobin 12.3 gm/dL (13.0-17.0); Lymph # (Auto) 0.8 th/mm3 (1.0-4.8); Mean Corpuscular HGB Conc 35.3 % (32.0-36.0); Mean Corpuscular Hemoglobin 30.6 pg (27.0-34.0); Mean Corpuscular Volume 86.6 fL (80.0-100.0); Mean Platelet Volume 8.6 fL (7.0-11.0); Mono # (Auto) 0.5 th/mm3 (0.0-0.9); Mono % (Auto) 4.8 % (0.0-8.0); Neut # (Auto) 9.1 th/mm3 (1.8-7.7); Platelet Count 91 th/mm3 (150-450); Red Blood Count 4.01 mil/mm3 (4.50-5.90); Red Cell Distribution Width 13.9 % (11.6-17.2); White Blood Count 10.5 th/mm3 (4.0-11.0)
[2018-09-18] MEDS: Methocarbamol 500 MG Tablet PO SCH ×3 (06:13→21:28)
[2018-09-18 06:30] LABS: Alanine Aminotransferase 29 U/L (12-78); Albumin 2.8 g/dL (3.4-5.0); Alkaline Phosphatase 40 U/L (45-117); Anion Gap 9 meq/L (5-15); Aspartate Aminotransferase 35 U/L (15-37); Blood Urea Nitrogen 17 mg/dL (7-18); Calcium 7.1 mg/dL (8.5-10.1); Carbon Dioxide 22.1 meq/L (21.0-32.0); Chloride 107 meq/L (98-107); Creatine Kinase 523 U/L (39-308); Glomerular Filtration Rate 89 mL/min (>89); Glucose,Random 104 mg/dL (74-106); Potassium 3.7 meq/L (3.5-5.1); Sodium 138 meq/L (136-145); Total Protein 5.9 g/dL (6.4-8.2)
[2018-09-18 07:03] LABS: CKMB Percent 0.9 % (0.0-4.0); Creatine Kinase MB 4.6 ng/mL (0.5-3.6)
--- NOTE | 2018-09-18 07:47 | P.PNNEU ---
Subjective Active Medications: Active Medications Al Hydroxide/Mg Hydroxide (Milk Of Garth Liq) 30 ml PO BID [facility] Last Admin: 09/17/18 21:28 Dose: 30 ml Albuterol (Duoneb Neb (Prn)) 1 ampul NEB Q2HR NEB PRN PRN Reason: WHEEZING Albuterol (Duoneb Neb (Raquel)) 1 ampul NEB Q6HR NEB [facility] Last Admin: 09/17/18 20:07 Dose: Not Given Bacitracin (Baciguent Oint) 1 applicatio TOPICAL BID [facility] Last Admin: 09/17/18 21:27 Dose: 1 applicatio Chlorhexidine Gluconate (Chlorhexidine 2% Cloth) 3 pack TOPICAL DAILY@0400 [facility] Stop: 09/22/18 03:59 Last Admin: 09/18/18 03:53 Dose: 3 pack Chlorhexidine Gluconate (Chlorhexidine 2% Cloth) 3 pack TOPICAL DAILY@0400 PRN PRN Reason: Extra cloth needed Stop: 09/22/18 03:59 Cyanocobalamin (Vitamin B12 Inj) 1,000 mcg SQ DAILY [facility] Stop: 09/21/18 07:44 Enalaprilat (Vasotec Inj) 1.25 mg IV.PUSH Q8H PRN PRN Reason: Blood pressure 180/95 Haloperidol Lactate (Haldol Inj) 2 mg IV.PUSH Q4H PRN PRN Reason: AGITATION Magnesium Sulfate 4 gm/ Sodium (Chloride) 100 mls @ 50 mls/hr IV.SIG UNSCH PRN PRN Reason: For Magnesium 0.9 - 1.1 mg/dL Magnesium Sulfate 2 gm/ Sodium (Chloride) 100 mls @ 50 mls/hr IV.SIG UNSCH PRN PRN Reason: For Magnesium 1.2 - 1.6 mg/dL Potassium Chloride (Kcl 40 Meq Premix Inj) 40 meq in 100 mls @ 25 mls/hr IV.SIG Q2H PRN PRN Reason: For Potassium 2.8 - 3.2 mEq/L Potassium Chloride (Kcl 20 Meq Premix Inj) 20 meq in 100 mls @ 50 mls/hr IV.SIG Q2H PRN PRN Reason: For Potassium 3.3 - 3.5 mEq/L Potassium Chloride (Kcl 40 Meq Premix Inj) 40 meq in 100 mls @ 25 mls/hr IV.SIG UNSCH PRN PRN Reason: For Potassium 3.3 - 3.5 mEq/L Potassium Chloride (Kcl 20 Meq Premix Inj) 20 meq in 100 mls @ 50 mls/hr IV.SIG Q2H PRN PRN Reason: For Potassium 2.8 - 3.2 mEq/L Potassium Phosphate 30 mmol/ (Sodium Chloride) 260 mls @ 42 mls/hr IV.SIG UNSCH PRN PRN Reason: SEE LABEL COMMENTS Sodium Phosphate 30 mmol/ (Sodium Chloride) 260 mls @ 42 mls/hr IV.SIG UNSCH PRN PRN Reason: For Phosphorus < 2.5 mg/dL Dexmedetomidine HCl 200 mcg/ (Sodium Chloride) 50 mls @ 4.32 mls/hr IV.CONT TITRATE PRN; Protocol PRN Reason: Per Protocol Last Admin: 09/18/18 06:12 Dose: 0.4 mcg/kg/hr, 8.65 mls/hr Lactulose (Lactulose Liq) 30 ml PO DAILY PRN PRN Reason: CONSTIPATION Levetiracetam (Keppra) 500 mg PO BID [facility] Last Admin: 09/17/18 21:27 Dose: 500 mg Lidocaine HCl (Lidoderm 5% Patch.12 Hr) 1 patch T-DERMAL DAILY@2100 [facility] Last Admin: 09/17/18 21:29 Dose: 1 patch Magnesium Oxide (Mag-Ox) 800 mg PO UNSCH PRN PRN Reason: For Magnesium 1.2 - 1.6 mg/dL Methocarbamol (Robaxin) 500 mg PO Q8HR [facility] Last Admin: 09/18/18 06:13 Dose: 500 mg Morphine Sulfate (Morphine Inj) 2 mg IV.PUSH Q3H PRN PRN Reason: BREAKTHROUGH PAIN Ondansetron HCl (Zofran Inj) 4 mg IV.PUSH Q6H PRN PRN Reason: NAUSEA OR VOMITING Last Admin: 09/16/18 22:00 Dose: 4 mg Oxycodone HCl (Roxicodone) 5 mg PO Q4H PRN PRN Reason: PAIN >3 Pantoprazole Sodium (Protonix Inj) 40 mg IV.PUSH Q24H [facility] Last Admin: 09/17/18 21:27 Dose: 40 mg Patch Removal (Remove Old Patch) 1 each T-DERMAL DAILY [facility] Last Admin: 09/17/18 10:47 Dose: 1 each Potassium Bicarb/Potassium Chloride (K-Lyte Cl Eff) 50 meq PO UNSCH PRN PRN Reason: For Potassium 3.3 - 3.5 mEq/L Potassium Phosphate (K-Phos Original) 2,000 mg PO Q4H PRN PRN Reason: Phosphorus Less Than 2.5 mg/dL Potassium Phosphate (K-Phos Original) 2,000 mg PO UNSCH PRN PRN Reason: SEE LABEL COMMENTS Senna/Docusate Sodium (Imani-Colace) 1 tab PO BID [facility] Last Admin: 09/17/18 21:27 Dose: 1 tab Sodium Chloride (Ns Flush) 2 ml IV.FLUSH UNSCH PRN PRN Reason: FLUSH AFTER USING IV ACCESS Allergies/Adverse Reactions: Allergies Allergy/AdvReac Type Severity Reaction Status Date / Time No Known Allergies Allergy Verified 09/16/18 18:46 Physical Exam Vital signs: Vital Signs 09/17/18 07:49 09/17/18 08:00 09/17/18 08:04 Temperature Pulse Rate 79 84 83 Respiratory Rate 14 11 L Blood Pressure 135/79 122/71 Pulse Oximetry 97 98 98 09/17/18 08:19 09/17/18 08:22 09/17/18 08:23 Temperature Pulse Rate 83 80 Respiratory Rate 11 L 15 Blood Pressure 124/73 Pulse Oximetry 98 96 09/17/18 08:34 09/17/18 08:49 09/17/18 09:00 Temperature Pulse Rate 94 H 89 96 H Respiratory Rate 14 12 23 Blood Pressure 133/77 121/60 Pulse Oximetry 99 96 98 09/17/18 09:04 09/17/18 09:19 09/17/18 09:34 Temperature Pulse Rate 89 86 92 H Respiratory Rate 12 12 14 Blood Pressure 119/65 109/58 L 121/63 Pulse Oximetry 96 96 97 09/17/18 09:49 09/17/18 10:00 09/17/18 10:04 Temperature Pulse Rate 85 92 H 90 Respiratory Rate 13 18 15 Blood Pressure 110/57 L 142/77 H Pulse Oximetry 95 99 99 09/17/18 10:19 09/17/18 10:34 09/17/18 10:49 Temperature Pulse Rate 87 80 84 Respiratory Rate 13 13 11 L Blood Pressure 135/72 127/69 128/73 Pulse Oximetry 98 98 99 09/17/18 10:54 09/17/18 11:00 09/17/18 11:04 Temperature 98.3 F Pulse Rate 85 83 85 Respiratory Rate 28 H 16 22 Blood Pressure 126/73 125/74 Pulse Oximetry 99 99 99 09/17/18 11:19 09/17/18 11:34 09/17/18 11:49 Temperature Pulse Rate 75 72 69 Respiratory Rate 13 13 13 Blood Pressure 106/58 L 102/59 L 99/57 L Pulse Oximetry 96 96 96 09/17/18 12:00 09/17/18 12:04 09/17/18 12:19 Temperature Pulse Rate 69 69 67 Respiratory Rate 13 14 13 Blood Pressure 92/55 L 91/53 L Pulse Oximetry 96 96 96 09/17/18 12:34 09/17/18 12:49 09/17/18 13:00 Temperature Pulse Rate 65 65 63 Respiratory Rate 14 13 14 Blood Pressure 92/51 L 100/58 L Pulse Oximetry 96 96 96 09/17/18 13:04 09/17/18 13:19 09/17/18 13:34 Temperature Pulse Rate 62 60 59 L Respiratory Rate 13 13 13 Blood Pressure 98/53 L 104/58 L 106/62 Pulse Oximetry 97 97 97 09/17/18 13:49 09/17/18 14:00 09/17/18 14:04 Temperature Pulse Rate 59 L 58 L 58 L Respiratory Rate 13 13 13 Blood Pressure 109/63 112/65 Pulse Oximetry 98 98 98 09/17/18 14:19 09/17/18 14:34 09/17/18 14:49 Temperature Pulse Rate 76 77 73 Respiratory Rate 14 13 18 Blood Pressure 135/75 142/84 H 155/89 H Pulse Oximetry 99 100 100 09/17/18 15:00 09/17/18 15:04 09/17/18 15:19 Temperature Pulse Rate 74 67 67 Respiratory Rate 17 16 21 Blood Pressure 148/81 H 143/85 H Pulse Oximetry 100 100 100 09/17/18 15:34 09/17/18 15:49 09/17/18 16:00 Temperature Pulse Rate 72 72 77 Respiratory Rate 20 15 22 Blood Pressure 144/90 H 161/83 H Pulse Oximetry 100 100 100 09/17/18 16:04 09/17/18 16:19 09/17/18 16:34 Temperature Pulse Rate 73 72 77 Respiratory Rate 17 12 16 Blood Pressure 154/83 H 150/85 H 155/84 H Pulse Oximetry 100 100 100 09/17/18 16:46 09/17/18 16:49 09/17/18 16:57 Temperature 98.2 F Pulse Rate 82 84 Respiratory Rate 18 8 L 15 Blood Pressure 145/83 H Pulse Oximetry 100 09/17/18 17:00 09/17/18 17:04 09/17/18 17:19 Temperature Pulse Rate 78 83 89 Respiratory Rate 11 L 16 18 Blood Pressure 126/66 135/69 Pulse Oximetry 100 100 100 09/17/18 17:54 09/17/18 19:00 09/17/18 19:51 Temperature Pulse Rate 85 81 Respiratory Rate 24 17 Blood Pressure 96/54 L Pulse Oximetry 96 100 09/17/18 20:00 09/17/18 20:07 09/17/18 21:00 Temperature 97.8 F Pulse Rate 80 72 Respiratory Rate 16 16 Blood Pressure 134/65 Pulse Oximetry 97 100 99 09/17/18 21:12 09/17/18 22:00 09/17/18 22:12 Temperature Pulse Rate 71 97 H Respiratory Rate 16 20 Blood Pressure 132/68 186/98 H Pulse Oximetry 97 09/17/18 22:15 09/17/18 23:00 09/17/18 23:12 Temperature Pulse Rate 91 H 96 H Respiratory Rate 19 23 Blood Pressure 173/88 H 180/90 H Pulse Oximetry 09/17/18 23:14 09/18/18 00:00 09/18/18 00:20 Temperature 97.8 F Pulse Rate 93 H 84 Respiratory Rate 33 H 25 H Blood Pressure 154/85 H 144/79 H Pulse Oximetry 94 L 96 09/18/18 01:00 09/18/18 01:20 09/18/18 02:00 Temperature Pulse Rate 68 67 65 Respiratory Rate 16 16 16 Blood Pressure 101/58 L Pulse Oximetry 93 L 98 99 09/18/18 02:20 09/18/18 03:00 09/18/18 03:20 Temperature Pulse Rate 65 83 74 Respiratory Rate 16 21 17 Blood Pressure 130/68 164/83 H Pulse Oximetry 99 100 93 L 09/18/18 04:00 09/18/18 04:20 09/18/18 05:00 Temperature 98.4 F Pulse Rate 85 81 94 H Respiratory Rate 16 17 25 H Blood Pressure 164/86 H Pulse Oximetry 95 94 L 98 09/18/18 05:20 09/18/18 05:27 09/18/18 05:31 Temperature Pulse Rate 81 101 H Respiratory Rate 19 22 Blood Pressure 169/113 H 175/88 H 154/75 H Pulse Oximetry 09/18/18 06:00 Temperature Pulse Rate 84 Respiratory Rate 20 Blood Pressure Pulse Oximetry 96 Intake & Output 09/17/18 09/18/18 09/18/18 18:59 06:59 18:59 Intake Total 1250 / 1250 1640 / 1640 Output Total 450 / 450 1000 / 1000 Balance 800 / 800 640 / 640 Weight 87.8 kg Intake: IV 1250 / 1250 1300 / 1300 Precedex Inj 200 MCG In NS Inj 50 / 50 100 / 100 48 ML @ 0.2 MCG/KG/HR 4.32 mls/ hr IV.CONT TITRATE PRN Rx#: [id number] NS Inj 1,000 ML @ 100 mls/hr IV 1000 / 1000 1000 / 1000 .CONT .Q10H [facility] Rx#:[id number] Ofirmev Inj 1,000 mg In 100 ml 200 / 200 200 / 200 @ 400 mls/hr IV.SIG Q6H [facility] Rx# :[id number] Oral 340 / 340 Output: Urine Amount (Catheter) 450 / 450 1000 / 1000 Indwelling Urethral Catheter 450 / 450 1000 / 1000 Narrative: awake not place moving all well - Urinary Catheter Management Indwelling Urethral Catheter Cath placed during this visit: yes Reason for continuing: Acute urinary retention Insertion date: 09/17/18 Insertion time: 08:00 Objective Laboratory Results - last 24 hr 09/17/18 09/17/18 09/17/18 17:40 17:40 18:49 WBC RBC Hgb Hct MCV MCH MCHC RDW Plt Count MPV Prelim Diff (Auto) Neut % (Auto) Lymph % (Auto) Edmunds % (Auto) Eos % (Auto) Baso % (Auto) Neut # (Auto) Lymph # (Auto) Edmunds # (Auto) Eos # (Auto) Baso # (Auto) Differential Comment ESR 16 Sodium Potassium Chloride Carbon Dioxide Anion Gap BUN Creatinine Estimated GFR Random Glucose Calcium Calcium Adj for Albumin Total Bilirubin AST ALT Alkaline Phosphatase Ammonia Total Creatine Kinase CK-MB (CK-2) CK-MB (CK-2) % Troponin I Total Protein Total Protein (PEP) Albumin Albumin (PEP) Albumin/Globulin Ratio Khyda-4-Vipeyyrns Goinq-5-Spjlditku Beta Globulins Gamma Globulins Vitamin B12 Folate TSH Free T4 Urine Color Yellow Urine Clarity Hazy H Urine pH 5.0 Ur Specific [place] 1.033 Urine Protein Negative Urine Glucose (UA) Negative Urine Ketones Negative Urine Occult Blood Small H Urine Nitrate Negative Urine Bilirubin Negative Urine Urobilinogen Less than 2 Ur Leukocyte Esterase Moderate H Urine RBC 21 H Urine WBC 54 H Ur Squamous Epith Cells <1 Urine Bacteria Rare H Urine Mucus Few H Micro UA Comment Culture indicated Ur Microscopic Review Not Reportable Urine Culture Comments Culture indicated Urine Opiates Screen Neg Ur Barbiturates Screen Neg Ur Amphetamines Screen Neg U Benzodiazepines Scrn Pos H Urine Cocaine Screen Neg U Cannabinoids Screen Neg Rheumatoid Factor Scrn Rheumatoid Factor Titer 09/17/18 09/17/18 09/18/18 18:49 18:49 05:15 WBC 10.5 RBC 4.01 L Hgb 12.3 L D Hct 34.7 L MCV 86.6 MCH 30.6 MCHC 35.3 RDW 13.9 Plt Count 91 L MPV 8.6 Prelim Diff (Auto) Slide review pending Neut % (Auto) 87.0 H Lymph % (Auto) 8.0 L Edmunds % (Auto) 4.8 Eos % (Auto) 0.1 Baso % (Auto) 0.1 Neut # (Auto) 9.1 H Lymph # (Auto) 0.8 L Edmunds # (Auto) 0.5 Eos # (Auto) 0.0 Baso # (Auto) 0.0 Differential Comment . ESR Sodium Potassium Chloride Carbon Dioxide Anion Gap BUN Creatinine Estimated GFR Random Glucose Calcium Calcium Adj for Albumin Total Bilirubin AST ALT Alkaline Phosphatase Ammonia 21 Total Creatine Kinase CK-MB (CK-2) CK-MB (CK-2) % Troponin I Total Protein Total Protein (PEP) 5.8 L Albumin Albumin (PEP) 3.61 Albumin/Globulin Ratio 1.65 Jesmj-7-Vfkimabog 0.21 Eeluf-6-Tpnhjsjop 0.56 Beta Globulins 0.60 Gamma Globulins 0.83 Vitamin B12 295 Folate 9.1 TSH 0.313 L Free T4 1.19 Urine Color Urine Clarity Urine pH Ur Specific [place] Urine Protein Urine Glucose (UA) Urine Ketones Urine Occult Blood Urine Nitrate Urine Bilirubin Urine Urobilinogen Ur Leukocyte Esterase Urine RBC Urine WBC Ur Squamous Epith Cells Urine Bacteria Urine Mucus Micro UA Comment Ur Microscopic Review Urine Culture Comments Urine Opiates Screen Ur Barbiturates Screen Ur Amphetamines Screen U Benzodiazepines Scrn Urine Cocaine Screen U Cannabinoids Screen Rheumatoid Factor Scrn Negative Rheumatoid Factor Titer Not Reportable 09/18/18 05:15 WBC RBC Hgb Hct MCV MCH MCHC RDW Plt Count MPV Prelim Diff (Auto) Neut % (Auto) Lymph % (Auto) Edmunds % (Auto) Eos % (Auto) Baso % (Auto) Neut # (Auto) Lymph # (Auto) Ed[place]ds # (Auto) Eos # (Auto) Baso # (Auto) Differential Comment ESR Sodium 138 Potassium 3.7 Chloride 107 Carbon Dioxide 22.1 Anion Gap 9 BUN 17 Creatinine 0.86 Estimated GFR 89 Random Glucose 104 Calcium 7.1 L* D Calcium Adj for Albumin 8.1 L Total Bilirubin 0.9 AST 35 ALT 29 Alkaline Phosphatase 40 L Ammonia Total Creatine Kinase 523 H CK-MB (CK-2) 4.6 H CK-MB (CK-2) % 0.9 Troponin I Less than 0.02 L Total Protein 5.9 L D Total Protein (PEP) Albumin 2.8 L D Albumin (PEP) Albumin/Globulin Ratio Qmxdv-7-Zcdtqrazf Nvmhk-4-Suynooayg Beta Globulins Gamma Globulins Vitamin B12 Folate TSH Free T4 Urine Color Urine Clarity Urine pH Ur Specific [place] Urine Protein Urine Glucose (UA) Urine Ketones Urine Occult Blood Urine Nitrate Urine Bilirubin Urine Urobilinogen Ur Leukocyte Esterase Urine RBC Urine WBC Ur Squamous Epith Cells Urine Bacteria Urine Mucus Micro UA Comment Ur Microscopic Review Urine Culture Comments Urine Opiates Screen Ur Barbiturates Screen Ur Amphetamines Screen U Benzodiazepines Scrn Urine Cocaine Screen U Cannabinoids Screen Rheumatoid Factor Scrn Rheumatoid Factor Titer Review/Management - Review/Management Plan: imp ? small r cbllr cva will review with neurorads check echo and holter b12 shots mra neck entire vb system nl fu eeg and labs oob
--- NOTE | 2018-09-18 08:22 | P.NPEVAL ---
Patient History - Record/History Review Reason for Referral: The patient is a 63 year old presumed right handed man status post traumatic brain injury secondary to a fall from a roof sustained on 09/16/2018. On admission as a Level I Trauma alert, the patient was awake and alert but confused with a GCS of 13. Head CT showed left frontotemporal SAH and occipital skull fracture. In discussion with his , the patient, who is a retired chiropractor, has been experiencing neurocognitive decline for approximately two years. He is referred for baseline neurobehavioral status examination per trauma protocol to assess cognitive, behavioral and emotional aspects of the injury and to provide treatment recommendations. [facility] - History History Provided By: Patient - Medical / Surgical Hx Neg / Unobtainable Medical Problems Denied: Unable to Obtain - Tobacco History Second Hand Smoke Exposure: No Smoking Status: Never smoker - Alcohol History How Often Do You Have a Drink Containing Alcohol: 2 to 3 times a week - Substance Use History Substance History: No History of Abuse Medications Active Medications Al Hydroxide/Mg Hydroxide (Milk Of Magnmartha Liq) 30 ml PO BID [facility] Last Admin: 09/17/18 21:28 Dose: 30 ml Albuterol (Duoneb Neb (Prn)) 1 ampul NEB Q2HR NEB PRN PRN Reason: WHEEZING Albuterol (Duoneb Neb (Raquel)) 1 ampul NEB Q6HR NEB [facility] Last Admin: 09/17/18 20:07 Dose: Not Given Bacitracin (Baciguent Oint) 1 applicatio TOPICAL BID [facility] Last Admin: 09/17/18 21:27 Dose: 1 applicatio Chlorhexidine Gluconate (Chlorhexidine 2% Cloth) 3 pack TOPICAL DAILY@0400 [facility] Stop: 09/22/18 03:59 Last Admin: 09/18/18 03:53 Dose: 3 pack Chlorhexidine Gluconate (Chlorhexidine 2% Cloth) 3 pack TOPICAL DAILY@0400 PRN PRN Reason: Extra cloth needed Stop: 09/22/18 03:59 Cyanocobalamin (Vitamin B12 Inj) 1,000 mcg SQ DAILY [facility] Stop: 09/21/18 07:44 Enalaprilat (Vasotec Inj) 1.25 mg IV.PUSH Q8H PRN PRN Reason: Blood pressure 180/95 Haloperidol Lactate (Haldol Inj) 2 mg IV.PUSH Q4H PRN PRN Reason: AGITATION Magnesium Sulfate 4 gm/ Sodium (Chloride) 100 mls @ 50 mls/hr IV.SIG UNSCH PRN PRN Reason: For Magnesium 0.9 - 1.1 mg/dL Magnesium Sulfate 2 gm/ Sodium (Chloride) 100 mls @ 50 mls/hr IV.SIG UNSCH PRN PRN Reason: For Magnesium 1.2 - 1.6 mg/dL Potassium Chloride (Kcl 40 Meq Premix Inj) 40 meq in 100 mls @ 25 mls/hr IV.SIG Q2H PRN PRN Reason: For Potassium 2.8 - 3.2 mEq/L Potassium Chloride (Kcl 20 Meq Premix Inj) 20 meq in 100 mls @ 50 mls/hr IV.SIG Q2H PRN PRN Reason: For Potassium 3.3 - 3.5 mEq/L Potassium Chloride (Kcl 40 Meq Premix Inj) 40 meq in 100 mls @ 25 mls/hr IV.SIG UNSCH PRN PRN Reason: For Potassium 3.3 - 3.5 mEq/L Potassium Chloride (Kcl 20 Meq Premix Inj) 20 meq in 100 mls @ 50 mls/hr IV.SIG Q2H PRN PRN Reason: For Potassium 2.8 - 3.2 mEq/L Potassium Phosphate 30 mmol/ (Sodium Chloride) 260 mls @ 42 mls/hr IV.SIG UNSCH PRN PRN Reason: SEE LABEL COMMENTS Sodium Phosphate 30 mmol/ (Sodium Chloride) 260 mls @ 42 mls/hr IV.SIG UNSCH PRN PRN Reason: For Phosphorus < 2.5 mg/dL Dexmedetomidine HCl 200 mcg/ (Sodium Chloride) 50 mls @ 4.32 mls/hr IV.CONT TITRATE PRN; Protocol PRN Reason: Per Protocol Last Admin: 09/18/18 06:12 Dose: 0.4 mcg/kg/hr, 8.65 mls/hr Lactulose (Lactulose Liq) 30 ml PO DAILY PRN PRN Reason: CONSTIPATION Levetiracetam (Keppra) 500 mg PO BID [facility] Last Admin: 09/17/18 21:27 Dose: 500 mg Lidocaine HCl (Lidoderm 5% Patch.12 Hr) 1 patch T-DERMAL DAILY@2100 [facility] Last Admin: 09/17/18 21:29 Dose: 1 patch Magnesium Oxide (Mag-Ox) 800 mg PO UNSCH PRN PRN Reason: For Magnesium 1.2 - 1.6 mg/dL Methocarbamol (Robaxin) 500 mg PO Q8HR [facility] Last Admin: 09/18/18 06:13 Dose: 500 mg Morphine Sulfate (Morphine Inj) 2 mg IV.PUSH Q3H PRN PRN Reason: BREAKTHROUGH PAIN Ondansetron HCl (Zofran Inj) 4 mg IV.PUSH Q6H PRN PRN Reason: NAUSEA OR VOMITING Last Admin: 09/16/18 22:00 Dose: 4 mg Oxycodone HCl (Roxicodone) 5 mg PO Q4H PRN PRN Reason: PAIN >3 Pantoprazole Sodium (Protonix Inj) 40 mg IV.PUSH Q24H [facility] Last Admin: 09/17/18 21:27 Dose: 40 mg Patch Removal (Remove Old Patch) 1 each T-DERMAL DAILY [facility] Last Admin: 09/17/18 10:47 Dose: 1 each Potassium Bicarb/Potassium Chloride (K-Lyte Cl Eff) 50 meq PO UNSCH PRN PRN Reason: For Potassium 3.3 - 3.5 mEq/L Potassium Phosphate (K-Phos Original) 2,000 mg PO Q4H PRN PRN Reason: Phosphorus Less Than 2.5 mg/dL Potassium Phosphate (K-Phos Original) 2,000 mg PO UNSCH PRN PRN Reason: SEE LABEL COMMENTS Senna/Docusate Sodium (Imani-Colace) 1 tab PO BID [facility] Last Admin: 09/17/18 21:27 Dose: 1 tab Sodium Chloride (Ns Flush) 2 ml IV.FLUSH UNSCH PRN PRN Reason: FLUSH AFTER USING IV ACCESS Mental Status Assessment - Mental Status Orientation: oriented to: Self, disoriented to: Place, Time, Situation Mental Status: Impaired: Thought processing, Language/interactions, Attention, Learning/memory, Problem-solving Absent: Hallucinations, Delusions Adjustment/Coping Assessment - Adjustment/Coping Adjustment/Coping: Severe: Awareness, Insight - Observation In terms of emotional functioning, the patient demonstrated challenges. This patient demonstrated signs of agitation, impulsivity and disinhibition, but there was no remarkable evidence of a formal thought disorder or psychosis. There was no evidence of depression or anxiety. Thought content was free from suicidal, homicidal or paranoid ideation, and thought processes were bradyphrenic and illogical. The patients mood was euthymic, and his affect was blunted. The patient appears to possess limited insight and awareness into their situation and within the limits of this brief evaluation, poor judgment. - Goals/Team Members LTG Status: Deferred STG Status: Deferred Team Members: Neuropsychologist Behavior - Behavior Agitation: Moderate - Observation Behaviorally, the patient demonstrated increasing signs of agitation, impulsivity or disinhibition. There was no remarkable evidence of a formal thought disorder or psychosis. - Goals LTG Status: Deferred STG Status: Deferred - Team Members Team Members: Neuropsychologist Diagnosis/Discharge Plan - Diagnosis (1) Major neurocognitive disorder as late effect of traumatic brain injury with behavioral disturbance Status: Acute (2) Major neurocognitive disorder due to Alzheimer's disease, probable, without behavioral disturbance Status: Acute Impression: 63 year old male s/p TBI 2T fall on 09/16/2018, superimposed on an underlying Alzheimer's disease, probable, condition. This patient has had neurocognitive decline for two years prior to this injury. His comprehension is presently impaired as well, consistent with a receptive aphasic condition. Neuroimaging did reveal left frontotemporal SAH. Disinhibition Score: 21.00 Aggression Score: 14.00 Lability Score: 14.00 Agitated Behavior Total Score: 18 Maximizing Acute Care Outcome: It is recommended that the patient be monitored for emergent behavioral impulsivity as the medical condition evolves. This patients neuropathological challenges may limit rehabilitation potential going forward, and these challenges will require specialized therapeutic skills to maximize outcome. Additionally, the patients family is experiencing ongoing issues of adjustment given the traumatic nature of the injury, and they may benefit from ongoing psychological assistance. At this point in the recovery process, the patient does not have cognitive capacity as the patient is unable to understand a situation and its likely consequences, nor is the patient able to manipulate information rationally. Cognitive capacity will be assessed throughout the recovery process. - Discharge Planning Anticipated Problems: Ongoing areas of concern will include behavioral impulsivity, lack of insight and judgment, which is expected to improve with time and treatment. Treatment Plan: This clinician will continue to follow with you throughout the course of this patients critical care treatment, and I will be available to meet with the patients family/support system to facilitate their understanding and the ongoing care of their family member. The goals of neuropsychological intervention shall be both educational and supportive to the family/support system as is deemed clinically appropriate. Thank you for the opportunity to assist in this patients care. Juan Elias, Ph.D., ABPP Board Certified in Clinical Neuropsychology [place] [employer] Professional Psychology [place] Licensed Psychologist #[id number]
[2018-09-18 08:44] LABS: Platelet Morphology Normal (Normal); RBC Morphology Normal (Normal)
[2018-09-18] MEDS: levETIRAcetam 500 MG Tablet PO SCH ×2 (10:22→21:15)
[2018-09-18] MEDS: Senna/Docusate Sodium 8.6/50 MG Tablet PO SCH ×2 (10:23→21:16)
--- NOTE | 2018-09-18 12:15 | ECG ---
Date Performed: 09/18/2018 Time Performed: 09:59:40 PTAGE: 63 years EKG: SINUS BRADYCARDIA WITH FIRST DEGREE AV BLOCK POSSIBLE RIGHT VENTRICULAR CONDUCTION DELAY AB NORMAL ECG NO PREVIOUS TRACING DOCTOR: Kortney Richey Interpretating Date/Time 09/18/2018 12:12:22
--- NOTE | 2018-09-18 15:46 | MG ---
cc: Margi James MD EEG NUMBER: [id number] REFERRING; Otoniel Silveira MD HISTORY: Room 1302 with photic done. No sedation. Awake, drowsy, asleep. MRI shows small bifrontal hemorrhages greater on the left subarachnoid hemorrhage bilaterally lacune in the right cerebellar. He was a trauma alert. The patient fell off the roof, landing on his head. MEDICATIONS: 1. . 2. Keppra. 3. Protonix. DESCRIPTION OF RECORD: Overall slowing. The background predominantly of 3-4 Hz at times. EKG looks sinus. Symmetrical slowing noted. Photic stimulation performed with minimal, if at all, driving response. Hyperventilation was not performed. No epileptiform features. IMPRESSION: Moderate slowing in the background can be seen with sedation or encephalopathic process. No epileptiform features are noted. Clinical correlation. Margi James MD DF/ct/ll , 03:27 PM , 03:33 PM
[2018-09-18] MEDS: Haloperidol Inj 5 MG/ML Ampul IV.PUSH PRN ×2 (16:35→22:30)
--- NOTE | 2018-09-18 18:51 | P.PNCC ---
Subjective Brief History: 74-year-old male fell off a roof while cleaning gutters and was transferred to our institution is priority 1 trauma alert. On arrival patient was awake alert but somewhat disoriented to repetitive and confused. Dileep Coma Scale about 13 and then came up to 14 Patient underwent full diagnostic and clinical workup and was found to have following injuries Left fronto-temporal sub-arachnoid bleed Right occipital skull fracture Right right third, fourth, fifth, sixth, seventh rib fracture Small pulmonary contusion and small hemothorax on the right Patient will be observed in the ICU neurosurgery is consulted and he will undergo repeat CT scan of the brain tomorrow 24 Hour Review/Hospital Course: 09/17 She is GCS is 14 time of my exam on low-dose of Precedex Overnight patient was agitated and was started on the Precedex Giving the natural of his injury frontal lobe and temporal frontal lobe contusions this is no surprise Patient also has multiple broken ribs and will require good pain control and pulmonary toilet There was evidence of esophageal motility disorder on the CT scan of the chest To be on safe side I will assess patient as swallow function for start him on a diet He will also need a GI follow-up outpatient basis 09/18 precedex low dose in am GCS 14 -talkative neuropscychology input appreciated MRI shows ? CVA cerebellum neurology on board tolerating diet HD normal pain control is adequat IS satisfactory haldol prn-watch QT interval Objective Vital Signs / I&O: Vital Signs 09/17/18 19:00 09/17/18 19:51 09/17/18 20:00 Temperature 97.8 F Pulse Rate 81 80 Respiratory Rate 24 17 16 Blood Pressure 96/54 L 134/65 Pulse Oximetry 96 100 97 09/17/18 20:07 09/17/18 21:00 09/17/18 21:12 Temperature Pulse Rate 72 71 Respiratory Rate 16 16 Blood Pressure 132/68 Pulse Oximetry 100 99 97 09/17/18 22:00 09/17/18 22:12 09/17/18 22:15 Temperature Pulse Rate 97 H Respiratory Rate 20 Blood Pressure 186/98 H 173/88 H Pulse Oximetry 09/17/18 23:00 09/17/18 23:12 09/17/18 23:14 Temperature Pulse Rate 91 H 96 H Respiratory Rate 19 23 Blood Pressure 180/90 H 154/85 H Pulse Oximetry 09/18/18 00:00 09/18/18 00:20 09/18/18 01:00 Temperature 97.8 F Pulse Rate 93 H 84 68 Respiratory Rate 33 H 25 H 16 Blood Pressure 144/79 H Pulse Oximetry 94 L 96 93 L 09/18/18 01:20 09/18/18 02:00 09/18/18 02:20 Temperature Pulse Rate 67 65 65 Respiratory Rate 16 16 16 Blood Pressure 101/58 L 130/68 Pulse Oximetry 98 99 99 09/18/18 03:00 09/18/18 03:20 09/18/18 04:00 Temperature 98.4 F Pulse Rate 83 74 85 Respiratory Rate 21 17 16 Blood Pressure 164/83 H Pulse Oximetry 100 93 L 95 09/18/18 04:20 09/18/18 05:00 09/18/18 05:20 Temperature Pulse Rate 81 94 H 81 Respiratory Rate 17 25 H 19 Blood Pressure 164/86 H 169/113 H Pulse Oximetry 94 L 98 09/18/18 05:27 09/18/18 05:31 09/18/18 06:00 Temperature Pulse Rate 101 H 84 Respiratory Rate 22 20 Blood Pressure 175/88 H 154/75 H Pulse Oximetry 96 09/18/18 06:20 09/18/18 07:00 09/18/18 07:20 Temperature 98.4 F Pulse Rate 77 86 81 Respiratory Rate 17 30 H 23 Blood Pressure 168/77 H 159/83 H Pulse Oximetry 96 96 98 09/18/18 08:00 09/18/18 08:20 09/18/18 09:00 Temperature Pulse Rate 62 61 62 Respiratory Rate 16 16 15 Blood Pressure 113/64 Pulse Oximetry 95 95 97 09/18/18 09:20 09/18/18 10:00 09/18/18 10:08 Temperature Pulse Rate 61 56 L 60 Respiratory Rate 15 22 18 Blood Pressure 132/82 Pulse Oximetry 97 100 99 09/18/18 10:16 09/18/18 10:17 09/18/18 11:01 Temperature Pulse Rate 61 65 Respiratory Rate Blood Pressure 152/82 H Pulse Oximetry 96 09/18/18 11:47 09/18/18 12:00 09/18/18 12:20 Temperature 98.3 F Pulse Rate 69 74 58 L Respiratory Rate 29 H 24 16 Blood Pressure 142/80 H 120/59 L Pulse Oximetry 97 98 99 09/18/18 13:00 09/18/18 13:20 09/18/18 14:00 Temperature 98.8 F Pulse Rate 71 76 70 Respiratory Rate 20 21 17 Blood Pressure 158/86 H Pulse Oximetry 99 98 98 09/18/18 14:20 09/18/18 15:00 09/18/18 15:26 Temperature Pulse Rate 63 67 Respiratory Rate 16 19 Blood Pressure 136/75 148/66 H Pulse Oximetry 98 98 98 09/18/18 15:45 09/18/18 16:00 09/18/18 16:20 Temperature 98.0 F Pulse Rate 60 79 Respiratory Rate 18 19 Blood Pressure 161/106 H Pulse Oximetry 97 98 97 09/18/18 16:27 09/18/18 17:00 09/18/18 18:00 Temperature Pulse Rate 78 80 90 Respiratory Rate 20 22 Blood Pressure 145/82 H Pulse Oximetry 99 99 100 09/18/18 18:20 Temperature Pulse Rate 71 Respiratory Rate 20 Blood Pressure 164/80 H Pulse Oximetry 100 Intake & Output 09/17/18 09/18/18 09/18/18 18:59 06:59 18:59 Intake Total 1250 / 1250 1640 / 1640 360 / 360 Output Total 450 / 450 1000 / 1000 600 / 600 Balance 800 / 800 640 / 640 -240 / -240 Weight 87.8 kg Intake: IV 1250 / 1250 1300 / 1300 Precedex Inj 200 MCG In NS Inj 50 / 50 100 / 100 48 ML @ 0.2 MCG/KG/HR 4.32 mls/ hr IV.CONT TITRATE PRN Rx#: [id number] NS Inj 1,000 ML @ 100 mls/hr IV 1000 / 1000 1000 / 1000 .CONT .Q10H PAYAM Rx#:[id number] Ofirmev Inj 1,000 mg In 100 ml 200 / 200 200 / 200 @ 400 mls/hr IV.SIG Q6H PAYAM Rx# :[id number] Oral 340 / 340 360 / 360 Output: Urine 600 / 600 Urine Amount (Catheter) 450 / 450 1000 / 1000 Indwelling Urethral Catheter 450 / 450 1000 / 1000 Other: # Voids 2 Result Diagrams: 09/18/18 05:15 09/18/18 05:15 Imaging: Impressions Chest X-Ray 09/18/18 06:00 CONCLUSION: No acute cardiopulmonary process. Disinhibition Score: 21.00 Aggression Score: 14.00 Lability Score: 14.00 Agitated Behavior Total Score: 18 - Exam [facility]: GCS 14-agitated at times Hemodynamic/Cardiac: stable Pulmonary/Respiratory: BS clear bl Abdomen/GI Nutrition: soft-tolerating diet Assessment and Plan Plan: Continue to monitor patient in the ICU Continue to wean the Precedex with Haldol as needed Continue pain control Continue pulmonary toilet follow-up chest x-ray
[2018-09-18] MEDS: Pantoprazole Inj 40 MG Vial IV.PUSH SCH (21:14)
[2018-09-18] MEDS: Lidocaine 5% Patch T-DERMAL SCH (21:15)
[2018-09-19] MEDS: Chlorhexidine Gluconate 2% 1 Pack (2 Cloths) TOPICAL SCH (03:23)
--- NOTE | 2018-09-19 04:38 | XR ---
EXAM DATE: 09/19/2018 4:28 AM EST AGE/SEX: 63 years / Male INDICATIONS: Follow up trama. Brain contusion. CLINICAL DATA: This is the patient's subsequent encounter. Patient reports that signs and symptoms h ave been present for 4 - 6 days and indicates a pain score of Nonresponsive. MEDICAL/SURGICAL HISTORY: Non-responsive. Non-responsive. COMPARISON: [facility] [place], CHEST 1V SINGLE AP, 09/18/2018. . FINDINGS: A single AP view of the chest demonstrates the lungs to be symmetrically aerated without evidence of mass, infiltrate or effusion. The cardiomediastinal contours are unremarkable. Osseous structures a re intact. CONCLUSION: No acute cardiopulmonary disease. Electronically signed by: Alan Lucio MD Board Certified Radiologist 09/19/2018 4:37 AM EST
[2018-09-19] MEDS: Methocarbamol 500 MG Tablet PO SCH ×3 (05:11→21:02)
[2018-09-19 05:24] LABS: Baso % (Auto) 0.2 % (0.0-2.0); Eos % (Auto) 0.1 % (0.0-4.0); Hemoglobin 12.6 gm/dL (13.0-17.0); Lymph # (Auto) 0.9 th/mm3 (1.0-4.8); Lymph % (Auto) 7.4 % (9.0-44.0); Mean Corpuscular HGB Conc 35.2 % (32.0-36.0); Mean Corpuscular Hemoglobin 29.9 pg (27.0-34.0); Mean Corpuscular Volume 84.9 fL (80.0-100.0); Mean Platelet Volume 8.5 fL (7.0-11.0); Mono # (Auto) 0.8 th/mm3 (0.0-0.9); Neut # (Auto) 10.8 th/mm3 (1.8-7.7); Neut % (Auto) 86.3 % (16.0-70.0); Platelet Count 109 th/mm3 (150-450); Red Blood Count 4.24 mil/mm3 (4.50-5.90); Red Cell Distribution Width 13.5 % (11.6-17.2); White Blood Count 12.5 th/mm3 (4.0-11.0)
[2018-09-19 05:49] LABS: Alanine Aminotransferase 30 U/L (12-78); Albumin 3.1 g/dL (3.4-5.0); Anion Gap 8 meq/L (5-15); Aspartate Aminotransferase 36 U/L (15-37); Blood Urea Nitrogen 14 mg/dL (7-18); Calcium 8.2 mg/dL (8.5-10.1); Carbon Dioxide 25.1 meq/L (21.0-32.0); Chloride 98 meq/L (98-107); Glomerular Filtration Rate Greater Than 89 mL/min (>89); Glucose,Random 92 mg/dL (74-106); Potassium 4.3 meq/L (3.5-5.1); Sodium 131 meq/L (136-145)
[2018-09-19 05:51] LABS: Alkaline Phosphatase 49 U/L (45-117); Total Protein 6.4 g/dL (6.4-8.2)
--- NOTE | 2018-09-19 07:32 | P.PNNEU ---
Subjective Active Medications: Active Medications Al Hydroxide/Mg Hydroxide (Milk Of Garth Sapp) 30 ml PO BID [facility] Last Admin: 09/18/18 21:15 Dose: Not Given Albuterol (Duoneb Neb (Prn)) 1 ampul NEB Q2HR NEB PRN PRN Reason: WHEEZING Albuterol (Duoneb Neb (Raquel)) 1 ampul NEB Q6HR NEB RAQUEL Last Admin: 09/19/18 04:27 Dose: Not Given Bacitracin (Baciguent Oint) 1 applicatio TOPICAL BID [facility] Last Admin: 09/18/18 21:15 Dose: 1 applicatio Chlorhexidine Gluconate (Chlorhexidine 2% Cloth) 3 pack TOPICAL DAILY@0400 RAQUEL Stop: 09/22/18 03:59 Last Admin: 09/19/18 03:23 Dose: 3 pack Chlorhexidine Gluconate (Chlorhexidine 2% Cloth) 3 pack TOPICAL DAILY@0400 PRN PRN Reason: Extra cloth needed Stop: 09/22/18 03:59 Cyanocobalamin (Vitamin B12 Inj) 1,000 mcg SQ DAILY [facility] Stop: 09/21/18 07:44 Last Admin: 09/18/18 10:36 Dose: 1,000 mcg Enalaprilat (Vasotec Inj) 1.25 mg IV.PUSH Q8H PRN PRN Reason: Blood pressure 180/95 Haloperidol Lactate (Haldol Inj) 2 mg IV.PUSH Q4H PRN PRN Reason: AGITATION Last Admin: 09/18/18 22:30 Dose: 2 mg Magnesium Sulfate 4 gm/ Sodium (Chloride) 100 mls @ 50 mls/hr IV.SIG UNSCH PRN PRN Reason: For Magnesium 0.9 - 1.1 mg/dL Magnesium Sulfate 2 gm/ Sodium (Chloride) 100 mls @ 50 mls/hr IV.SIG UNSCH PRN PRN Reason: For Magnesium 1.2 - 1.6 mg/dL Potassium Chloride (Kcl 40 Meq Premix Inj) 40 meq in 100 mls @ 25 mls/hr IV.SIG Q2H PRN PRN Reason: For Potassium 2.8 - 3.2 mEq/L Potassium Chloride (Kcl 20 Meq Premix Inj) 20 meq in 100 mls @ 50 mls/hr IV.SIG Q2H PRN PRN Reason: For Potassium 3.3 - 3.5 mEq/L Potassium Chloride (Kcl 40 Meq Premix Inj) 40 meq in 100 mls @ 25 mls/hr IV.SIG UNSCH PRN PRN Reason: For Potassium 3.3 - 3.5 mEq/L Potassium Chloride (Kcl 20 Meq Premix Inj) 20 meq in 100 mls @ 50 mls/hr IV.SIG Q2H PRN PRN Reason: For Potassium 2.8 - 3.2 mEq/L Potassium Phosphate 30 mmol/ (Sodium Chloride) 260 mls @ 42 mls/hr IV.SIG UNSCH PRN PRN Reason: SEE LABEL COMMENTS Sodium Phosphate 30 mmol/ (Sodium Chloride) 260 mls @ 42 mls/hr IV.SIG UNSCH PRN PRN Reason: For Phosphorus < 2.5 mg/dL Dexmedetomidine HCl 200 mcg/ (Sodium Chloride) 50 mls @ 4.32 mls/hr IV.CONT TITRATE PRN; Protocol PRN Reason: Per Protocol Last Titration: 09/19/18 05:30 Dose: 0 mcg/kg/hr, 0 mls/hr Lactulose (Lactulose Liq) 30 ml PO DAILY PRN PRN Reason: CONSTIPATION Levetiracetam (Keppra) 500 mg PO BID [facility] Last Admin: 09/18/18 21:15 Dose: 500 mg Lidocaine HCl (Lidoderm 5% Patch.12 Hr) 1 patch T-DERMAL DAILY@2100 [facility] Last Admin: 09/18/18 21:15 Dose: 1 patch Magnesium Oxide (Mag-Ox) 800 mg PO UNSCH PRN PRN Reason: For Magnesium 1.2 - 1.6 mg/dL Methocarbamol (Robaxin) 500 mg PO Q8HR [facility] Last Admin: 09/19/18 05:11 Dose: 500 mg Morphine Sulfate (Morphine Inj) 2 mg IV.PUSH Q3H PRN PRN Reason: BREAKTHROUGH PAIN Ondansetron HCl (Zofran Inj) 4 mg IV.PUSH Q6H PRN PRN Reason: NAUSEA OR VOMITING Last Admin: 09/18/18 10:59 Dose: 4 mg Oxycodone HCl (Roxicodone) 5 mg PO Q4H PRN PRN Reason: PAIN >3 Last Admin: 09/18/18 14:12 Dose: 5 mg Pantoprazole Sodium (Protonix Inj) 40 mg IV.PUSH Q24H [facility] Last Admin: 09/18/18 21:14 Dose: 40 mg Patch Removal (Remove Old Patch) 1 each T-DERMAL DAILY RAQUEL Last Admin: 09/18/18 23:16 Dose: 1 each Potassium Bicarb/Potassium Chloride (K-Lyte Cl Eff) 50 meq PO UNSCH PRN PRN Reason: For Potassium 3.3 - 3.5 mEq/L Potassium Phosphate (K-Phos Original) 2,000 mg PO Q4H PRN PRN Reason: Phosphorus Less Than 2.5 mg/dL Potassium Phosphate (K-Phos Original) 2,000 mg PO UNSCH PRN PRN Reason: SEE LABEL COMMENTS Senna/Docusate Sodium (Imani-Colace) 1 tab PO BID RAQUEL Last Admin: 09/18/18 21:16 Dose: 1 tab Sodium Chloride (Ns Flush) 2 ml IV.FLUSH UNSCH PRN PRN Reason: FLUSH AFTER USING IV ACCESS Allergies/Adverse Reactions: Allergies Allergy/AdvReac Type Severity Reaction Status Date / Time No Known Allergies Allergy Verified 09/16/18 18:46 Physical Exam Vital signs: Vital Signs 09/18/18 08:00 09/18/18 08:20 09/18/18 09:00 Temperature Pulse Rate 62 61 62 Respiratory Rate 16 16 15 Blood Pressure 113/64 Pulse Oximetry 95 95 97 09/18/18 09:20 09/18/18 10:00 09/18/18 10:08 Temperature Pulse Rate 61 56 L 60 Respiratory Rate 15 22 18 Blood Pressure 132/82 Pulse Oximetry 97 100 99 09/18/18 10:16 09/18/18 10:17 09/18/18 11:01 Temperature Pulse Rate 61 65 Respiratory Rate Blood Pressure 152/82 H Pulse Oximetry 96 09/18/18 11:47 09/18/18 12:00 09/18/18 12:20 Temperature 98.3 F Pulse Rate 69 74 58 L Respiratory Rate 29 H 24 16 Blood Pressure 142/80 H 120/59 L Pulse Oximetry 97 98 99 09/18/18 13:00 09/18/18 13:20 09/18/18 14:00 Temperature 98.8 F Pulse Rate 71 76 70 Respiratory Rate 20 21 17 Blood Pressure 158/86 H Pulse Oximetry 99 98 98 09/18/18 14:20 09/18/18 15:00 09/18/18 15:26 Temperature Pulse Rate 63 67 Respiratory Rate 16 19 Blood Pressure 136/75 148/66 H Pulse Oximetry 98 98 98 09/18/18 15:45 09/18/18 16:00 09/18/18 16:20 Temperature 98.0 F Pulse Rate 60 79 Respiratory Rate 18 19 Blood Pressure 161/106 H Pulse Oximetry 97 98 97 09/18/18 16:27 09/18/18 17:00 09/18/18 18:00 Temperature Pulse Rate 78 80 90 Respiratory Rate 20 22 Blood Pressure 145/82 H Pulse Oximetry 99 99 100 09/18/18 18:20 09/18/18 19:00 09/18/18 19:20 Temperature Pulse Rate 71 65 93 H Respiratory Rate 20 17 38 H Blood Pressure 164/80 H 153/86 H Pulse Oximetry 100 100 09/18/18 20:00 09/18/18 20:20 09/18/18 20:24 Temperature 98.4 F Pulse Rate 89 101 H 94 H Respiratory Rate 22 24 18 Blood Pressure 155/102 H 175/98 H Pulse Oximetry 98 97 98 09/18/18 21:00 09/18/18 21:20 09/18/18 21:22 Temperature Pulse Rate 92 H 93 H 90 Respiratory Rate 21 32 H 22 Blood Pressure 186/88 H 172/92 H Pulse Oximetry 96 95 96 09/18/18 22:00 09/18/18 22:32 09/18/18 23:00 Temperature Pulse Rate 97 H 101 H 92 H Respiratory Rate 21 24 20 Blood Pressure 164/82 H Pulse Oximetry 95 100 09/18/18 23:20 09/18/18 23:58 09/19/18 00:00 Temperature 98.2 F Pulse Rate 100 H 104 H 102 H Respiratory Rate 25 H 27 H 19 Blood Pressure 187/96 H 184/98 H Pulse Oximetry 99 100 09/19/18 00:20 09/19/18 01:00 09/19/18 01:20 Temperature Pulse Rate 109 H 110 H 106 H Respiratory Rate 27 H 29 H 32 H Blood Pressure 176/96 H 187/87 H Pulse Oximetry 96 95 97 09/19/18 02:00 09/19/18 02:20 09/19/18 03:00 Temperature Pulse Rate 102 H 95 H 70 Respiratory Rate 33 H 31 H 17 Blood Pressure 182/92 H Pulse Oximetry 96 95 95 09/19/18 03:20 09/19/18 04:00 09/19/18 04:20 Temperature 98.6 F Pulse Rate 68 100 H 100 H Respiratory Rate 17 31 H 26 H Blood Pressure 118/67 195/109 H Pulse Oximetry 97 97 97 09/19/18 04:25 09/19/18 05:00 09/19/18 05:20 Temperature Pulse Rate 97 H 81 70 Respiratory Rate 26 H 29 H 17 Blood Pressure 140/63 87/51 L Pulse Oximetry 97 94 L 09/19/18 05:28 09/19/18 06:00 09/19/18 06:20 Temperature Pulse Rate 76 66 67 Respiratory Rate 17 17 15 Blood Pressure 115/62 117/60 Pulse Oximetry 95 94 L 99 Intake & Output 09/18/18 09/19/18 09/19/18 18:59 06:59 18:59 Intake Total 360 / 360 290 / 290 Output Total 600 / 600 750 / 750 Balance -240 / -240 -460 / -460 Weight 81.5 kg Intake: IV 50 / 50 Precedex Inj 200 MCG In NS Inj 50 / 50 48 ML @ 0.2 MCG/KG/HR 4.32 mls/ hr IV.CONT TITRATE PRN Rx#: [id number] Oral 360 / 360 240 / 240 Output: Urine 600 / 600 750 / 750 Other: # Voids 2 4 # Incontinent Voids 2 Narrative: asleep now moves ble ok - Urinary Catheter Management Indwelling Urethral Catheter Cath placed during this visit: yes, but has since been removed by the nurse Reason for continuing: Acute urinary retention Insertion date: 09/17/18 Insertion time: 08:00 Removal date: 09/18/18 Removal time: 10:18 Objective Laboratory Results - last 24 hr 09/17/18 09/18/18 09/19/18 18:49 05:15 03:49 WBC 12.5 H RBC 4.24 L Hgb 12.6 L Hct 36.0 L MCV 84.9 MCH 29.9 MCHC 35.2 RDW 13.5 Plt Count 109 L MPV 8.5 Neut % (Auto) 86.3 H Lymph % (Auto) 7.4 L [place] % (Auto) 6.0 Eos % (Auto) 0.1 Baso % (Auto) 0.2 Neut # (Auto) 10.8 H Lymph # (Auto) 0.9 L [place] # (Auto) 0.8 Eos # (Auto) 0.0 Baso # (Auto) 0.0 WBC Differential . . Diff Scan Auto diff confirmed Differential Comment Auto diff final Platelet Estimate Low L Platelet Morphology Normal RBC Morphology Normal Sodium Potassium Chloride Carbon Dioxide Anion Gap BUN Creatinine Estimated GFR Random Glucose Calcium Total Bilirubin AST ALT Alkaline Phosphatase Total Protein Albumin RPR Nonreactive 09/19/18 03:49 WBC RBC Hgb Hct MCV MCH MCHC RDW Plt Count MPV Neut % (Auto) Lymph % (Auto) [place] % (Auto) Eos % (Auto) Baso % (Auto) Neut # (Auto) Lymph # (Auto) [place] # (Auto) Eos # (Auto) Baso # (Auto) WBC Differential Diff Scan Differential Comment Platelet Estimate Platelet Morphology RBC Morphology Sodium 131 L Potassium 4.3 Chloride 98 D Carbon Dioxide 25.1 Anion Gap 8 BUN 14 Creatinine 0.75 Estimated GFR Greater than 89 Random Glucose 92 Calcium 8.2 L D Total Bilirubin 1.2 H AST 36 ALT 30 Alkaline Phosphatase 49 Total Protein 6.4 Albumin 3.1 L RPR Microbiology 09/17/18 17:40 Urine Culture - Preliminary Clean Catch Urine No growth in 24 hours Review/Management - Review/Management Plan: imp ? small r cbllr cva will review with neurorads check echo and holter b12 shots mra neck entire vb system nl fu eeg and labs oob 09/19/17 very agitated overnoc i would rec get him oob and ambulate and out of hospital mary as he has dementia and in hosp will only inc his agitation and confusion could have some pain inc agitation too i dw rads r cbllr acute cva echo and holter pend sr overnoc eeg neg no asa with inc for now
--- NOTE | 2018-09-19 08:10 | P.PNNPSY ---
- Cognitive Severe: Cognitive, Attention/concentration, Confused/orientation, Insight/ awareness, Judgment/problem solving, Memory - Psychosocial Intact: Psychosocial, Family/other adjustment, Realistic expectation - Progress Notes/Response to Treatment Contents of Sessions: Adjustment, Level of consciousness Time with Patient: 30 minutes Premorbid Psychological Status: Premorbid Cognitive, Emotional and Behavioral Status: Tenuous. The patient has 20+ years of education and a solid work history prior to this injury, up until two years ago when he retired for neurocognitive decline. He was employed as a chiropractor. The patient has no prior psychiatric difficulties, as described above. However, he does have underlying dementia, likely LYLY. Substance abuse history is unremarkable. Behavioral Reactions of Patient and Family/Support System: Stable. The patients family is experiencing ongoing issues of adjustment given the nature of the injury, and this aspect of recovery will require ongoing monitoring. Emotional/Behavioral Status of Patient and Family/Support System: Stable. Pertinent issues, if appropriate to this patients clinical care, are described in detail above. Maximizing Acute Care Outcome: It is recommended that the patient be monitored for emergent behavioral impulsivity as the medical condition evolves. This patients neuropathological challenges may limit rehabilitation potential going forward, and these challenges will require specialized therapeutic skills to maximize outcome. Additionally, the patients family is experiencing ongoing issues of adjustment given the traumatic nature of the injury, and they may benefit from ongoing psychological assistance. At this point in the recovery process, the patient does not have cognitive capacity as the patient is unable to understand a situation and its likely consequences, nor is the patient able to manipulate information rationally. Cognitive capacity will be assessed throughout the recovery process. Anticipated Problems: Ongoing areas of concern will include behavioral impulsivity, lack of insight and judgment, which is expected to improve with time and treatment. Treatment Plan: This clinician will continue to follow with you throughout the course of this patients critical care treatment, and I will be available to meet with the patients family/support system to facilitate their understanding and the ongoing care of their family member. The goals of neuropsychological intervention shall be both educational and supportive to the family/support system as is deemed clinically appropriate. [place] COG Scale: Level IV Disinhibition Score: 24.50 Aggression Score: 24.50 Lability Score: 14.00 Agitated Behavior Total Score: 22 Impression: 63 year old male s/p TBI 2T fall on 09/16/2018, superimposed on an underlying Alzheimer's disease, probable, condition. This patient has had neurocognitive decline for two years prior to this injury. His comprehension is presently impaired as well, consistent with a receptive aphasic condition. Neuroimaging did reveal left frontotemporal SAH. Progress Note Narrative: PTD 3. Neurobehaviorally, the patient has increased agitation/restlessness, requiring PRN Haldol last night at 2230. EKG performed and QT interval below .40. LFT have been elevated. Recent ABS is 22 (24.5,24.5,14). He has comprehension deficits inconsistent with baseline, although he has a history of neurocognitive decline prior to his TBI event. Given his neuropathological location, likely there is a receptive aphasic component to his clinical presentation. Suggest Seroquel to help manage his agitation, unless medically contraindicated. Agree with neurology that getting him out of an ICU environment will be neurobehaviorally helpful. I will follow. - Diagnosis (1) Major neurocognitive disorder as late effect of traumatic brain injury with behavioral disturbance Status: Acute (2) Major neurocognitive disorder due to Alzheimer's disease, probable, without behavioral disturbance Status: Acute
--- NOTE | 2018-09-19 08:40 | ECHRPT ---
Indication: CONCLUSIONS Normal left ventricular size and wall thickness. The left ventricular systolic function is normal wi th an estimated ejection fraction in the range of 60-65%. Left ventricular diastolic function parameters a re normal. Mild mitral valve regurgitation. There is moderate tricuspid regurgitation. The estimated pulmonary arterial pressure is 39.5 mmHg. BP: / HR: Rhythm: Sinus MEASUREMENTS (Male / Female) Normal Values Technical Quality:Fair 2D ECHO LV Diastolic Diameter PLAX 4.3 cm 4.2 - 5.9 / 3.9 - 5.3 cm LV Systolic Diameter PLAX 3.1 cm IVS Diastolic Thickness 1.2 cm 0.6 - 1.0 / 0.6 - 0.9 cm LVPW Diastolic Thickness 1.2 cm 0.6 - 1.0 / 0.6 - 0.9 cm LV Relative Wall Thickness 0.6 LVOT Diameter 2.0 cm M-MODE Aortic Root Diameter MM 4.3 cm LA Systolic Diameter MM 3.5 cm LA Ao Ratio MM 0.8 AV Cusp Separation MM 2.0 cm DOPPLER AV Peak Velocity 113.0 cm/s AV Peak Gradient 5.1 mmHg LVOT Peak Velocity 74.0 cm/s LVOT Peak Gradient 2.2 mmHg AV Area Cont Eq pk 2.1 cm MR Peak Velocity 299.0 cm/s MR Peak Gradient 35.8 mmHg Mitral E Point Velocity 93.8 cm/s Mitral A Point Velocity 73.5 cm/s Mitral E to A Ratio 1.3 LV E' Lateral Velocity 9.4 cm/s Mitral E to LV E' Lateral Ratio 10.0 LV E' Septal Velocity 7.1 cm/s Mitral E to LV E' Septal Ratio 13.2 TR Peak Velocity 271.7 cm/s TR Peak Gradient 29.5 mmHg Right Atrial Pressure 10.0 mmHg Pulmonary Artery Systolic Pressu 39.5 mmHg Right Ventricular Systolic Press 39.5 mmHg PV Peak Velocity 100.0 cm/s PV Peak Gradient 4.0 mmHg FINDINGS LEFT VENTRICLE Normal left ventricular size and wall thickness. The left ventricular systolic function is normal wi th an estimated ejection fraction in the range of 60-65%. Left ventricular diastolic function parameters a re normal. RIGHT VENTRICLE Normal right ventricular size and systolic function. LEFT ATRIUM The left atrial size is normal. RIGHT ATRIUM The right atrial size is normal. ATRIAL SEPTUM Normal atrial septal thickness without atrial level shunting by limited color doppler interrogation. AORTA The aortic root and proximal ascending aorta are normal in size on limited imaging. MITRAL VALVE Mild mitral valve regurgitation. AORTIC VALVE Trileaflet aortic valve. No aortic valve stenosis or regurgitation. TRICUSPID VALVE There is moderate tricuspid regurgitation. The estimated pulmonary arterial pressure is 39.5 mmHg. PULMONARY VALVE No pulmonary valve regurgitation or stenosis. VESSELS The inferior vena cava is normal in size. PERICARDIUM No pericardial effusion. Kobi Ayoub MD, FACC (Electronically Signed) Final Date:19 September 2018 08:23
[2018-09-19] MEDS: levETIRAcetam 500 MG Tablet PO SCH ×3 (08:49→21:03)
[2018-09-19] MEDS: Haloperidol Inj 5 MG/ML Ampul IV.PUSH PRN ×2 (08:49→18:21)
[2018-09-19] MEDS: Senna/Docusate Sodium 8.6/50 MG Tablet PO SCH ×3 (08:49→21:03)
--- NOTE | 2018-09-19 11:40 | P.PNNS ---
Subjective Interval history: Confused at night, acting out his dreams-- Starting seroquel Physical Exam Vital signs: Vital Signs 09/18/18 11:47 09/18/18 12:00 09/18/18 12:20 Temperature 98.3 F Pulse Rate 69 74 58 L Respiratory Rate 29 H 24 16 Blood Pressure 142/80 H 120/59 L Pulse Oximetry 97 98 99 09/18/18 13:00 09/18/18 13:20 09/18/18 14:00 Temperature 98.8 F Pulse Rate 71 76 70 Respiratory Rate 20 21 17 Blood Pressure 158/86 H Pulse Oximetry 99 98 98 09/18/18 14:20 09/18/18 15:00 09/18/18 15:26 Temperature Pulse Rate 63 67 Respiratory Rate 16 19 Blood Pressure 136/75 148/66 H Pulse Oximetry 98 98 98 09/18/18 15:45 09/18/18 16:00 09/18/18 16:20 Temperature 98.0 F Pulse Rate 60 79 Respiratory Rate 18 19 Blood Pressure 161/106 H Pulse Oximetry 97 98 97 09/18/18 16:27 09/18/18 17:00 09/18/18 18:00 Temperature Pulse Rate 78 80 90 Respiratory Rate 20 22 Blood Pressure 145/82 H Pulse Oximetry 99 99 100 09/18/18 18:20 09/18/18 19:00 09/18/18 19:20 Temperature Pulse Rate 71 65 93 H Respiratory Rate 20 17 38 H Blood Pressure 164/80 H 153/86 H Pulse Oximetry 100 100 09/18/18 20:00 09/18/18 20:20 09/18/18 20:24 Temperature 98.4 F Pulse Rate 89 101 H 94 H Respiratory Rate 22 24 18 Blood Pressure 155/102 H 175/98 H Pulse Oximetry 98 97 98 09/18/18 21:00 09/18/18 21:20 09/18/18 21:22 Temperature Pulse Rate 92 H 93 H 90 Respiratory Rate 21 32 H 22 Blood Pressure 186/88 H 172/92 H Pulse Oximetry 96 95 96 09/18/18 22:00 09/18/18 22:32 09/18/18 23:00 Temperature Pulse Rate 97 H 101 H 92 H Respiratory Rate 21 24 20 Blood Pressure 164/82 H Pulse Oximetry 95 100 09/18/18 23:20 09/18/18 23:58 09/19/18 00:00 Temperature 98.2 F Pulse Rate 100 H 104 H 102 H Respiratory Rate 25 H 27 H 19 Blood Pressure 187/96 H 184/98 H Pulse Oximetry 99 100 09/19/18 00:20 09/19/18 01:00 09/19/18 01:20 Temperature Pulse Rate 109 H 110 H 106 H Respiratory Rate 27 H 29 H 32 H Blood Pressure 176/96 H 187/87 H Pulse Oximetry 96 95 97 09/19/18 02:00 09/19/18 02:20 09/19/18 03:00 Temperature Pulse Rate 102 H 95 H 70 Respiratory Rate 33 H 31 H 17 Blood Pressure 182/92 H Pulse Oximetry 96 95 95 09/19/18 03:20 09/19/18 04:00 09/19/18 04:20 Temperature 98.6 F Pulse Rate 68 100 H 100 H Respiratory Rate 17 31 H 26 H Blood Pressure 118/67 195/109 H Pulse Oximetry 97 97 97 09/19/18 04:25 09/19/18 05:00 09/19/18 05:20 Temperature Pulse Rate 97 H 81 70 Respiratory Rate 26 H 29 H 17 Blood Pressure 140/63 87/51 L Pulse Oximetry 97 94 L 09/19/18 05:28 09/19/18 06:00 09/19/18 06:20 Temperature Pulse Rate 76 66 67 Respiratory Rate 17 17 15 Blood Pressure 115/62 117/60 Pulse Oximetry 95 94 L 99 09/19/18 07:00 09/19/18 07:20 09/19/18 07:50 Temperature Pulse Rate 75 93 H Respiratory Rate 17 25 H Blood Pressure 160/90 H Pulse Oximetry 98 100 99 09/19/18 08:00 09/19/18 08:20 09/19/18 09:00 Temperature 97.9 F Pulse Rate 100 H 92 H 80 Respiratory Rate 20 12 17 Blood Pressure 130/79 Pulse Oximetry 97 97 95 09/19/18 09:20 09/19/18 10:00 09/19/18 10:20 Temperature Pulse Rate 79 80 76 Respiratory Rate 15 26 H 24 Blood Pressure 153/88 H 130/79 Pulse Oximetry 99 95 94 L 09/19/18 10:53 Temperature Pulse Rate 74 Respiratory Rate 20 Blood Pressure Pulse Oximetry Intake & Output 09/18/18 09/19/18 09/19/18 18:59 06:59 18:59 Intake Total 360 / 360 290 / 290 Output Total 600 / 600 750 / 750 Balance -240 / -240 -460 / -460 Weight 81.5 kg Intake: IV 50 / 50 Precedex Inj 200 MCG In NS Inj 50 / 50 48 ML @ 0.2 MCG/KG/HR 4.32 mls/ hr IV.CONT TITRATE PRN Rx#: [id number] Oral 360 / 360 240 / 240 Output: Urine 600 / 600 750 / 750 Other: # Voids 2 4 # Incontinent Voids 2 Narrative: A&O x person SANTAMARIA x 4 with full strength, following commands confused at night - Urinary Catheter Management Indwelling Urethral Catheter Cath placed during this visit: yes, but has since been removed by the nurse Reason for continuing: Acute urinary retention Insertion date: 09/17/18 Insertion time: 08:00 Removal date: 09/18/18 Removal time: 10:18 Assessment and Plan - Plan HD#3 68'sM fall off roof with +LOC, traumatic SAH. Plan: Plan for [place] [facility] re[facility] Saturday Neurology following for cerebellar stroke Hemorrhages small and stable-- continue rehab therapies -- d/c Huey after 7 days total Neurosurgery will follow peripherally now-- please call with questions Occipital laceration antonietta need to come out in 2 weeks-- around 09/30-- can be done at [facility]
--- NOTE | 2018-09-19 12:56 | P.CON ---
History of Present Illness Service: Ophthalmology Reason for Consult: left eye vision problems Primary Care Provider: UNKNOWN History of Present Illness: 74-year-old male fell off a roof while cleaning gutters and was transferred to our institution is priority 1 trauma alert. Found to have following injuries - Left fronto-temporal sub-arachnoid bleed, Right occipital skull fracture, Right rib fractures, and Small pulmonary contusion and small hemothorax on the right. Patient complaining of decreased peripheral vision on left. Ocular history significant for nystagmus? PMFSH - History History Provided By: Patient - Medical / Surgical Hx Neg / Unobtainable Medical Problems Denied: Unable to Obtain - Tobacco History Second Hand Smoke Exposure: No Smoking Status: Never smoker - Alcohol History How Often Do You Have a Drink Containing Alcohol: 2 to 3 times a week - Substance Use History Substance History: No History of Abuse Medications and Allergies Active Medications: Active Medications Al Hydroxide/Mg Hydroxide (Milk Of Magnesia Liq) 30 ml PO BID [facility] Last Admin: 09/19/18 08:49 Dose: 30 ml Albuterol (Duoneb Neb (Prn)) 1 ampul NEB Q2HR NEB PRN PRN Reason: WHEEZING Albuterol (Duoneb Neb (Raquel)) 1 ampul NEB Q6HR NEB RAQUEL Last Admin: 09/19/18 11:19 Dose: Not Given Bacitracin (Baciguent Oint) 1 applicatio TOPICAL BID [facility] Last Admin: 09/19/18 08:50 Dose: 1 applicatio Chlorhexidine Gluconate (Chlorhexidine 2% Cloth) 3 pack TOPICAL DAILY@0400 RAQUEL Stop: 09/22/18 03:59 Last Admin: 09/19/18 03:23 Dose: 3 pack Chlorhexidine Gluconate (Chlorhexidine 2% Cloth) 3 pack TOPICAL DAILY@0400 PRN PRN Reason: Extra cloth needed Stop: 09/22/18 03:59 Cyanocobalamin (Vitamin B12 Inj) 1,000 mcg SQ DAILY [facility] Stop: 09/21/18 07:44 Last Admin: 09/19/18 08:49 Dose: 1,000 mcg Enalaprilat (Vasotec Inj) 1.25 mg IV.PUSH Q8H PRN PRN Reason: Blood pressure 180/95 Haloperidol Lactate (Haldol Inj) 2 mg IV.PUSH Q4H PRN PRN Reason: AGITATION Last Admin: 09/19/18 08:49 Dose: 2 mg Magnesium Sulfate 4 gm/ Sodium (Chloride) 100 mls @ 50 mls/hr IV.SIG UNSCH PRN PRN Reason: For Magnesium 0.9 - 1.1 mg/dL Magnesium Sulfate 2 gm/ Sodium (Chloride) 100 mls @ 50 mls/hr IV.SIG UNSCH PRN PRN Reason: For Magnesium 1.2 - 1.6 mg/dL Potassium Chloride (Kcl 40 Meq Premix Inj) 40 meq in 100 mls @ 25 mls/hr IV.SIG Q2H PRN PRN Reason: For Potassium 2.8 - 3.2 mEq/L Potassium Chloride (Kcl 20 Meq Premix Inj) 20 meq in 100 mls @ 50 mls/hr IV.SIG Q2H PRN PRN Reason: For Potassium 3.3 - 3.5 mEq/L Potassium Chloride (Kcl 40 Meq Premix Inj) 40 meq in 100 mls @ 25 mls/hr IV.SIG UNSCH PRN PRN Reason: For Potassium 3.3 - 3.5 mEq/L Potassium Chloride (Kcl 20 Meq Premix Inj) 20 meq in 100 mls @ 50 mls/hr IV.SIG Q2H PRN PRN Reason: For Potassium 2.8 - 3.2 mEq/L Potassium Phosphate 30 mmol/ (Sodium Chloride) 260 mls @ 42 mls/hr IV.SIG UNSCH PRN PRN Reason: SEE LABEL COMMENTS Sodium Phosphate 30 mmol/ (Sodium Chloride) 260 mls @ 42 mls/hr IV.SIG UNSCH PRN PRN Reason: For Phosphorus < 2.5 mg/dL Dexmedetomidine HCl 200 mcg/ (Sodium Chloride) 50 mls @ 4.32 mls/hr IV.CONT TITRATE PRN; Protocol PRN Reason: Per Protocol Last Titration: 09/19/18 05:30 Dose: 0 mcg/kg/hr, 0 mls/hr Lactulose (Lactulose Liq) 30 ml PO DAILY PRN PRN Reason: CONSTIPATION Levetiracetam (Keppra) 500 mg PO BID [facility] Last Admin: 09/19/18 08:49 Dose: 500 mg Lidocaine HCl (Lidoderm 5% Patch.12 Hr) 1 patch T-DERMAL DAILY@2100 [facility] Last Admin: 09/18/18 21:15 Dose: 1 patch Magnesium Oxide (Mag-Ox) 800 mg PO UNSCH PRN PRN Reason: For Magnesium 1.2 - 1.6 mg/dL Methocarbamol (Robaxin) 500 mg PO Q8HR [facility] Last Admin: 09/19/18 05:11 Dose: 500 mg Morphine Sulfate (Morphine Inj) 2 mg IV.PUSH Q3H PRN PRN Reason: BREAKTHROUGH PAIN Ondansetron HCl (Zofran Inj) 4 mg IV.PUSH Q6H PRN PRN Reason: NAUSEA OR VOMITING Last Admin: 09/18/18 10:59 Dose: 4 mg Oxycodone HCl (Roxicodone) 5 mg PO Q4H PRN PRN Reason: PAIN >3 Last Admin: 09/18/18 14:12 Dose: 5 mg Pantoprazole Sodium (Protonix Inj) 40 mg IV.PUSH Q24H [facility] Last Admin: 09/18/18 21:14 Dose: 40 mg Patch Removal (Remove Old Patch) 1 each T-DERMAL DAILY [facility] Last Admin: 09/19/18 08:50 Dose: 1 each Potassium Bicarb/Potassium Chloride (K-Lyte Cl Eff) 50 meq PO UNSCH PRN PRN Reason: For Potassium 3.3 - 3.5 mEq/L Potassium Phosphate (K-Phos Original) 2,000 mg PO Q4H PRN PRN Reason: Phosphorus Less Than 2.5 mg/dL Potassium Phosphate (K-Phos Original) 2,000 mg PO UNSCH PRN PRN Reason: SEE LABEL COMMENTS Quetiapine Fumarate (Seroquel) 50 mg PO HS [facility] Quetiapine Fumarate (Seroquel) 25 mg PO BID@0900,1400 [facility] Senna/Docusate Sodium (Imani-Colace) 1 tab PO BID [facility] Last Admin: 09/19/18 08:49 Dose: 1 tab Sodium Chloride (Ns Flush) 2 ml IV.FLUSH UNSCH PRN PRN Reason: FLUSH AFTER USING IV ACCESS Allergies Allergy/AdvReac Type Severity Reaction Status Date / Time No Known Allergies Allergy Verified 09/16/18 18:46 Home Medications Medication Instructions Recorded Confirmed Type No Known Home Medications 09/16/18 09/16/18 History Physical Exam Vital signs: Vital Signs 09/18/18 13:00 09/18/18 13:20 09/18/18 14:00 Temperature 98.8 F Pulse Rate 71 76 70 Respiratory Rate 20 21 17 Blood Pressure 158/86 H Pulse Oximetry 99 98 98 09/18/18 14:20 09/18/18 15:00 09/18/18 15:26 Temperature Pulse Rate 63 67 Respiratory Rate 16 19 Blood Pressure 136/75 148/66 H Pulse Oximetry 98 98 98 09/18/18 15:45 09/18/18 16:00 09/18/18 16:20 Temperature 98.0 F Pulse Rate 60 79 Respiratory Rate 18 19 Blood Pressure 161/106 H Pulse Oximetry 97 98 97 09/18/18 16:27 09/18/18 17:00 09/18/18 18:00 Temperature Pulse Rate 78 80 90 Respiratory Rate 20 22 Blood Pressure 145/82 H Pulse Oximetry 99 99 100 09/18/18 18:20 09/18/18 19:00 09/18/18 19:20 Temperature Pulse Rate 71 65 93 H Respiratory Rate 20 17 38 H Blood Pressure 164/80 H 153/86 H Pulse Oximetry 100 100 09/18/18 20:00 09/18/18 20:20 09/18/18 20:24 Temperature 98.4 F Pulse Rate 89 101 H 94 H Respiratory Rate 22 24 18 Blood Pressure 155/102 H 175/98 H Pulse Oximetry 98 97 98 09/18/18 21:00 09/18/18 21:20 09/18/18 21:22 Temperature Pulse Rate 92 H 93 H 90 Respiratory Rate 21 32 H 22 Blood Pressure 186/88 H 172/92 H Pulse Oximetry 96 95 96 09/18/18 22:00 09/18/18 22:32 09/18/18 23:00 Temperature Pulse Rate 97 H 101 H 92 H Respiratory Rate 21 24 20 Blood Pressure 164/82 H Pulse Oximetry 95 100 09/18/18 23:20 09/18/18 23:58 09/19/18 00:00 Temperature 98.2 F Pulse Rate 100 H 104 H 102 H Respiratory Rate 25 H 27 H 19 Blood Pressure 187/96 H 184/98 H Pulse Oximetry 99 100 09/19/18 00:20 09/19/18 01:00 09/19/18 01:20 Temperature Pulse Rate 109 H 110 H 106 H Respiratory Rate 27 H 29 H 32 H Blood Pressure 176/96 H 187/87 H Pulse Oximetry 96 95 97 09/19/18 02:00 09/19/18 02:20 09/19/18 03:00 Temperature Pulse Rate 102 H 95 H 70 Respiratory Rate 33 H 31 H 17 Blood Pressure 182/92 H Pulse Oximetry 96 95 95 09/19/18 03:20 09/19/18 04:00 09/19/18 04:20 Temperature 98.6 F Pulse Rate 68 100 H 100 H Respiratory Rate 17 31 H 26 H Blood Pressure 118/67 195/109 H Pulse Oximetry 97 97 97 09/19/18 04:25 09/19/18 05:00 09/19/18 05:20 Temperature Pulse Rate 97 H 81 70 Respiratory Rate 26 H 29 H 17 Blood Pressure 140/63 87/51 L Pulse Oximetry 97 94 L 09/19/18 05:28 09/19/18 06:00 09/19/18 06:20 Temperature Pulse Rate 76 66 67 Respiratory Rate 17 17 15 Blood Pressure 115/62 117/60 Pulse Oximetry 95 94 L 99 09/19/18 07:00 09/19/18 07:20 09/19/18 07:50 Temperature Pulse Rate 75 93 H Respiratory Rate 17 25 H Blood Pressure 160/90 H Pulse Oximetry 98 100 99 09/19/18 08:00 09/19/18 08:20 09/19/18 09:00 Temperature 97.9 F Pulse Rate 100 H 92 H 80 Respiratory Rate 20 12 17 Blood Pressure 130/79 Pulse Oximetry 97 97 95 09/19/18 09:20 09/19/18 10:00 09/19/18 10:20 Temperature Pulse Rate 79 80 76 Respiratory Rate 15 26 H 24 Blood Pressure 153/88 H 130/79 Pulse Oximetry 99 95 94 L 09/19/18 10:53 09/19/18 11:00 09/19/18 11:20 Temperature 98.3 F Pulse Rate 74 74 66 Respiratory Rate 20 18 16 Blood Pressure 100/62 Pulse Oximetry 93 L 95 09/19/18 11:59 Temperature Pulse Rate 69 Respiratory Rate 20 Blood Pressure Pulse Oximetry Intake & Output 09/18/18 09/19/18 09/19/18 18:59 06:59 18:59 Intake Total 360 / 360 290 / 290 Output Total 600 / 600 750 / 750 Balance -240 / -240 -460 / -460 Weight 81.5 kg Intake: IV 50 / 50 Precedex Inj 200 MCG In NS Inj 50 / 50 48 ML @ 0.2 MCG/KG/HR 4.32 mls/ hr IV.CONT TITRATE PRN Rx#: [id number] Oral 360 / 360 240 / 240 Output: Urine 600 / 600 750 / 750 Other: # Voids 2 4 # Incontinent Voids 2 - Detailed Eye Exam Comments: Va cc at near OD 20/60, OS 20/30 EOM full OU, no diplopia CVF unable Pupils 2-1 no APD OU IOP normal to palpation OU Anterior exam OD - normal eyelid, C/S W&Q, K clear, AC deep, pupil round, lens clear OS - normal eyelid, C/S W&Q, K clear, AC deep, pupil round, lens clear - Urinary Catheter Management Indwelling Urethral Catheter Cath placed during this visit: yes, but has since been removed by the nurse Reason for continuing: Acute urinary retention Insertion date: 09/17/18 Insertion time: 08:00 Removal date: 09/18/18 Removal time: 10:18 Results - Labs CBC & Chem 7: 09/19/18 03:49 09/19/18 03:49 Labs: Laboratory Results - last 24 hr 09/17/18 09/19/18 09/19/18 18:49 03:49 03:49 WBC 12.5 H RBC 4.24 L Hgb 12.6 L Hct 36.0 L MCV 84.9 MCH 29.9 MCHC 35.2 RDW 13.5 Plt Count 109 L MPV 8.5 Neut % (Auto) 86.3 H Lymph % (Auto) 7.4 L Kay % (Auto) 6.0 Eos % (Auto) 0.1 Baso % (Auto) 0.2 Neut # (Auto) 10.8 H Lymph # (Auto) 0.9 L Kay # (Auto) 0.8 Eos # (Auto) 0.0 Baso # (Auto) 0.0 WBC Differential . Differential Comment Auto diff final Sodium 131 L Potassium 4.3 Chloride 98 D Carbon Dioxide 25.1 Anion Gap 8 BUN 14 Creatinine 0.75 Estimated GFR Greater than 89 Random Glucose 92 Calcium 8.2 L D Total Bilirubin 1.2 H AST 36 ALT 30 Alkaline Phosphatase 49 Total Protein 6.4 Albumin 3.1 L PEP Pathologist Comment - Imaging Impressions Chest X-Ray 09/19/18 06:00 CONCLUSION: No acute cardiopulmonary disease. Assessment and Plan - Assessment (1) Peripheral vision loss Code(s): H53.459 - Other localized visual field defect, unspecified eye Status : Acute Plan: Secondary to traumatic brain injury. Will need to follow up as outpatient for Arora visual field.
--- NOTE | 2018-09-19 12:58 | P.PNCC ---
Subjective Brief History: CHITIMACHA: This is a 74-year-old male fell off a roof while cleaning gutters and was transferred to our institution is priority 1 trauma alert. On arrival patient was awake alert but somewhat disoriented to repetitive and confused. [place] Coma Scale about 13 and then came up to 14. Patient underwent full diagnostic and clinical workup and was found to have following injuries Injuries: Left fronto-temporal sub-arachnoid bleed Right occipital skull fracture Right right third, fourth, fifth, sixth, seventh rib fracture Small pulmonary contusion and small hemothorax on the right L1-L4 Transverse process fx Patient will be observed in the ICU neurosurgery is consulted and he will undergo repeat CT scan of the brain tomorrow 24 Hour Review/Hospital Course: 09/17/2018 She is GCS is 14 time of my exam on low-dose of Precedex Overnight patient was agitated and was started on the Precedex Giving the natural of his injury frontal lobe and temporal frontal lobe contusions this is no surprise Patient also has multiple broken ribs and will require good pain control and pulmonary toilet There was evidence of esophageal motility disorder on the CT scan of the chest To be on safe side I will assess patient as swallow function for start him on a diet He will also need a GI follow-up outpatient basis 09/18/2018 precedex low dose in am GCS 14 -talkative neuropscychology input appreciated MRI shows ? CVA cerebellum neurology on board tolerating diet HD normal pain control is adequat IS satisfactory haldol prn-watch QT interval 09/19/2018 Patient sitting up in bed. No distress noted. Patient awake, alert and oriented. Calm and answering questions appropriately. Patient, however was severely agitated overnight, and is requiring restraints Will transition Precedex to off, and begin Seroquel dosing. Patient states, "I am fine. I am breathing okay, but when I twist, it hurts." Objective Vital Signs / I&O: Vital Signs 09/18/18 13:00 09/18/18 13:20 09/18/18 14:00 Temperature 98.8 F Pulse Rate 71 76 70 Respiratory Rate 20 21 17 Blood Pressure 158/86 H Pulse Oximetry 99 98 98 09/18/18 14:20 09/18/18 15:00 09/18/18 15:26 Temperature Pulse Rate 63 67 Respiratory Rate 16 19 Blood Pressure 136/75 148/66 H Pulse Oximetry 98 98 98 09/18/18 15:45 09/18/18 16:00 09/18/18 16:20 Temperature 98.0 F Pulse Rate 60 79 Respiratory Rate 18 19 Blood Pressure 161/106 H Pulse Oximetry 97 98 97 09/18/18 16:27 09/18/18 17:00 09/18/18 18:00 Temperature Pulse Rate 78 80 90 Respiratory Rate 20 22 Blood Pressure 145/82 H Pulse Oximetry 99 99 100 09/18/18 18:20 09/18/18 19:00 09/18/18 19:20 Temperature Pulse Rate 71 65 93 H Respiratory Rate 20 17 38 H Blood Pressure 164/80 H 153/86 H Pulse Oximetry 100 100 09/18/18 20:00 09/18/18 20:20 09/18/18 20:24 Temperature 98.4 F Pulse Rate 89 101 H 94 H Respiratory Rate 22 24 18 Blood Pressure 155/102 H 175/98 H Pulse Oximetry 98 97 98 09/18/18 21:00 09/18/18 21:20 09/18/18 21:22 Temperature Pulse Rate 92 H 93 H 90 Respiratory Rate 21 32 H 22 Blood Pressure 186/88 H 172/92 H Pulse Oximetry 96 95 96 09/18/18 22:00 09/18/18 22:32 09/18/18 23:00 Temperature Pulse Rate 97 H 101 H 92 H Respiratory Rate 21 24 20 Blood Pressure 164/82 H Pulse Oximetry 95 100 09/18/18 23:20 09/18/18 23:58 09/19/18 00:00 Temperature 98.2 F Pulse Rate 100 H 104 H 102 H Respiratory Rate 25 H 27 H 19 Blood Pressure 187/96 H 184/98 H Pulse Oximetry 99 100 09/19/18 00:20 09/19/18 01:00 09/19/18 01:20 Temperature Pulse Rate 109 H 110 H 106 H Respiratory Rate 27 H 29 H 32 H Blood Pressure 176/96 H 187/87 H Pulse Oximetry 96 95 97 09/19/18 02:00 09/19/18 02:20 09/19/18 03:00 Temperature Pulse Rate 102 H 95 H 70 Respiratory Rate 33 H 31 H 17 Blood Pressure 182/92 H Pulse Oximetry 96 95 95 09/19/18 03:20 09/19/18 04:00 09/19/18 04:20 Temperature 98.6 F Pulse Rate 68 100 H 100 H Respiratory Rate 17 31 H 26 H Blood Pressure 118/67 195/109 H Pulse Oximetry 97 97 97 09/19/18 04:25 09/19/18 05:00 09/19/18 05:20 Temperature Pulse Rate 97 H 81 70 Respiratory Rate 26 H 29 H 17 Blood Pressure 140/63 87/51 L Pulse Oximetry 97 94 L 09/19/18 05:28 09/19/18 06:00 09/19/18 06:20 Temperature Pulse Rate 76 66 67 Respiratory Rate 17 17 15 Blood Pressure 115/62 117/60 Pulse Oximetry 95 94 L 99 09/19/18 07:00 09/19/18 07:20 09/19/18 07:50 Temperature Pulse Rate 75 93 H Respiratory Rate 17 25 H Blood Pressure 160/90 H Pulse Oximetry 98 100 99 09/19/18 08:00 09/19/18 08:20 09/19/18 09:00 Temperature 97.9 F Pulse Rate 100 H 92 H 80 Respiratory Rate 20 12 17 Blood Pressure 130/79 Pulse Oximetry 97 97 95 09/19/18 09:20 09/19/18 10:00 09/19/18 10:20 Temperature Pulse Rate 79 80 76 Respiratory Rate 15 26 H 24 Blood Pressure 153/88 H 130/79 Pulse Oximetry 99 95 94 L 09/19/18 10:53 09/19/18 11:00 09/19/18 11:20 Temperature 98.3 F Pulse Rate 74 74 66 Respiratory Rate 20 18 16 Blood Pressure 100/62 Pulse Oximetry 93 L 95 09/19/18 11:59 Temperature Pulse Rate 69 Respiratory Rate 20 Blood Pressure Pulse Oximetry Intake & Output 09/18/18 09/19/18 09/19/18 18:59 06:59 18:59 Intake Total 360 / 360 290 / 290 Output Total 600 / 600 750 / 750 Balance -240 / -240 -460 / -460 Weight 81.5 kg Intake: IV 50 / 50 Precedex Inj 200 MCG In NS Inj 50 / 50 48 ML @ 0.2 MCG/KG/HR 4.32 mls/ hr IV.CONT TITRATE PRN Rx#: [id number] Oral 360 / 360 240 / 240 Output: Urine 600 / 600 750 / 750 Other: # Voids 2 4 # Incontinent Voids 2 Result Diagrams: 09/19/18 03:49 09/19/18 03:49 Imaging: Impressions Chest X-Ray 09/19/18 06:00 CONCLUSION: No acute cardiopulmonary disease. Disinhibition Score: 24.50 Aggression Score: 24.50 Lability Score: 14.00 Agitated Behavior Total Score: 22 Objective Remarks: GENERAL: This is a 63-year-old male sitting up in bed. No distress noted. SKIN: Warm and dry. HEAD: Atraumatic. Normocephalic. EYES: PERRLA ENT: No nasal bleeding or discharge. Mucous membranes pink and moist. NECK: Trachea midline. No JVD. CARDIOVASCULAR: Regular rate and rhythm. RESPIRATORY: No accessory muscle use. Lungs are clear to auscultation. Breath sounds equal bilaterally. No distress or dyspnea. GASTROINTESTINAL: BS + x 4 quads. Abdomen soft, non-tender, nondistended. MUSCULOSKELETAL: Extremities without cyanosis, or edema. + peripheral pulses x 4 extremities. Warm with good capillary refill and sensation. MAEW. NEUROLOGICAL: Awake and alert. Normal speech and pattern. Can be restless/ agitated at times. Assessment and Plan Plan: CHITIMACHA: This is a 63-year-old male who sustained a fall. He fell off the roof of his house and landed on his head. + LOC. Confused and combative during transport. INJURIES: Tiny LEFT SDH (3mm) LEFT frontal/temporal SAH and hemorrhagic contusion Occipital fx RIGHT rib fx (1, 3-6, 11) RIGHT pulmonary contusion L1-L4 Transverse process fx *Dilated esophagus w/ esophageal motility disorder. PMHx: Dementia Procedures: Consults: Neurosurgery. Neurology. Neuropsych. Rehab medicine. Case management. Diet: Regular diet. Tolerating po diet. Encourage good po intake with each meal. Speech therapy following patient Pulmonary: Encourage good pulmonary toileting. IS and Acapella at bedside and pt encouraged to use. Rationale for use explained to patient, and verbalized understanding. A CPAP. Duo nebs as needed. PAIN Management: Oxycodone 5 mg q 4h. Morphine 2 mg q 3h for breakthrough pain. Robaxin 500 mg q 8h. Lidoderm Patch. Behavior: Precedex drip -wean to off. Begin Seroquel 25, 25,50mg. Continue Haldol 2 mg q 4h PRN as needed Activity: OOB. PT and OT ordered. GI prophylaxis: Protonix 40 mg IV Bowel regimen: Imani-colace. MOM. Lactulose PRN. LBM: 0 DVT prophylaxis: Mechanical VTE with SCDs. Chemical management TBD. Waiting for neurology clearance. DC Planning: Case management consulted for assistance with final discharge disposition. Patient will require rehab placement upon discharge. Emotional support provided to patient and family at bedside and plan of care discussed. Discussed with RN at bedside. Discussed pt condition and plan of care with collaborating trauma surgeon. Patient is hemodynamically stable in the ICU, and therefore he can be transferred to the med/surg floor to a bed close to the nursing station. The trauma team will round each day, and evaluate plan of care on a daily basis. Tiny LEFT SDH (3mm) LEFT frontal/temporal SAH and hemorrhagic contusion Occipital fx Neurosurgery consulted and assisting in management and care Scans: 1/2: EEG - No seizures. Slowing 1/2: MR Neck - NEG 1/2: MRI brain - small bifrontal hemorrhage L > R. Bilat SAH. Acute lunar infarct RIGHT cerebellum. 1/2: Ct brain - increase orbital frontal contusion. SDH mostly gone. Minimal SAH persists L parietal. CT brain for any change in neurological status Serial neuro checks Neurology consult and assisting in management and care Pain management as needed Seizure precautions Seizure prophylaxis -Keppra 500 mg twice daily. Encourage out of bed PT and OT ordered Agitation controlled Behavior management: Wean off Precedex drip Begin Seroquel 25, 25, 50 mg. Haldol 2 mg every 4 hours as needed for agitation and restlessness Neuropsych consulted and assisting in management and care Awaiting neurology approval for DVT prophylaxis with Lovenox RIGHT rib fx (1, 3-6, 11) RIGHT pulmonary contusion O2 nasal cannula as needed Monitor for hypoxia Supportive care Chest x-ray this a.m. stable Follow-up chest x-ray in the morning Aggressive pulmonary toileting Pain management Encourage out of bed PT and OT ordered L1-L4 Transverse process fx Supportive care Pain management Encourage out of bed PT and OT ordered Dilated esophagus w/ esophageal motility disorder. Supportive care Follow-up with GI outpatient
[2018-09-19] MEDS: QUEtiapine 25 MG Tablet PO SCH (13:49)
[2018-09-19 15:28] LABS: Anti-Nuclear Antibody Screen Neg (Neg)
--- NOTE | 2018-09-19 16:15 | P.PNREH ---
Subjective Interval history: Patient awake and alert. Nursing reports that he was agitated overnight. Denies any pain complaints. No shortness of breath noted. Review of Systems other (As previously documented) Exam - Physical Examination Vital Signs / I&O: Vital Signs 09/18/18 16:20 09/18/18 16:27 09/18/18 17:00 Temperature Pulse Rate 79 78 80 Respiratory Rate 19 20 22 Blood Pressure 161/106 H 145/82 H Pulse Oximetry 97 99 99 09/18/18 18:00 09/18/18 18:20 09/18/18 19:00 Temperature Pulse Rate 90 71 65 Respiratory Rate 20 17 Blood Pressure 164/80 H Pulse Oximetry 100 100 100 09/18/18 19:20 09/18/18 20:00 09/18/18 20:20 Temperature 98.4 F Pulse Rate 93 H 89 101 H Respiratory Rate 38 H 22 24 Blood Pressure 153/86 H 155/102 H Pulse Oximetry 98 97 09/18/18 20:24 09/18/18 21:00 09/18/18 21:20 Temperature Pulse Rate 94 H 92 H 93 H Respiratory Rate 18 21 32 H Blood Pressure 175/98 H 186/88 H Pulse Oximetry 98 96 95 09/18/18 21:22 09/18/18 22:00 09/18/18 22:32 Temperature Pulse Rate 90 97 H 101 H Respiratory Rate 22 21 24 Blood Pressure 172/92 H 164/82 H Pulse Oximetry 96 95 09/18/18 23:00 09/18/18 23:20 09/18/18 23:58 Temperature Pulse Rate 92 H 100 H 104 H Respiratory Rate 20 25 H 27 H Blood Pressure 187/96 H 184/98 H Pulse Oximetry 100 99 09/19/18 00:00 09/19/18 00:20 09/19/18 01:00 Temperature 98.2 F Pulse Rate 102 H 109 H 110 H Respiratory Rate 19 27 H 29 H Blood Pressure 176/96 H Pulse Oximetry 100 96 95 09/19/18 01:20 09/19/18 02:00 09/19/18 02:20 Temperature Pulse Rate 106 H 102 H 95 H Respiratory Rate 32 H 33 H 31 H Blood Pressure 187/87 H 182/92 H Pulse Oximetry 97 96 95 09/19/18 03:00 09/19/18 03:20 09/19/18 04:00 Temperature 98.6 F Pulse Rate 70 68 100 H Respiratory Rate 17 17 31 H Blood Pressure 118/67 Pulse Oximetry 95 97 97 09/19/18 04:20 09/19/18 04:25 09/19/18 05:00 Temperature Pulse Rate 100 H 97 H 81 Respiratory Rate 26 H 26 H 29 H Blood Pressure 195/109 H 140/63 Pulse Oximetry 97 97 09/19/18 05:20 09/19/18 05:28 09/19/18 06:00 Temperature Pulse Rate 70 76 66 Respiratory Rate 17 17 17 Blood Pressure 87/51 L 115/62 Pulse Oximetry 94 L 95 94 L 09/19/18 06:20 09/19/18 07:00 09/19/18 07:20 Temperature Pulse Rate 67 75 93 H Respiratory Rate 15 17 25 H Blood Pressure 117/60 160/90 H Pulse Oximetry 99 98 100 09/19/18 07:50 09/19/18 08:00 09/19/18 08:20 Temperature 97.9 F Pulse Rate 100 H 92 H Respiratory Rate 20 12 Blood Pressure 130/79 Pulse Oximetry 99 97 97 09/19/18 09:00 09/19/18 09:20 09/19/18 10:00 Temperature Pulse Rate 80 79 80 Respiratory Rate 17 15 26 H Blood Pressure 153/88 H Pulse Oximetry 95 99 95 09/19/18 10:20 09/19/18 10:53 09/19/18 11:00 Temperature Pulse Rate 76 74 74 Respiratory Rate 24 20 18 Blood Pressure 130/79 Pulse Oximetry 94 L 93 L 09/19/18 11:20 09/19/18 11:59 09/19/18 12:00 Temperature 98.3 F Pulse Rate 66 69 66 Respiratory Rate 16 20 17 Blood Pressure 100/62 Pulse Oximetry 95 95 09/19/18 12:20 09/19/18 13:00 09/19/18 13:20 Temperature Pulse Rate 85 68 68 Respiratory Rate 29 H 16 18 Blood Pressure 160/91 H 97/53 L Pulse Oximetry 97 98 93 L 09/19/18 13:40 09/19/18 14:00 09/19/18 14:20 Temperature Pulse Rate 76 77 76 Respiratory Rate 16 19 22 Blood Pressure 124/66 121/67 Pulse Oximetry 96 97 09/19/18 15:00 Temperature Pulse Rate 83 Respiratory Rate 21 Blood Pressure Pulse Oximetry 94 L Intake & Output 09/18/18 09/19/18 09/19/18 18:59 06:59 18:59 Intake Total 360 / 360 290 / 290 Output Total 600 / 600 750 / 750 Balance -240 / -240 -460 / -460 Weight 81.5 kg Intake: IV 50 / 50 Precedex Inj 200 MCG In NS Inj 50 / 50 48 ML @ 0.2 MCG/KG/HR 4.32 mls/ hr IV.CONT TITRATE PRN Rx#: [id number] Oral 360 / 360 240 / 240 Output: Urine 600 / 600 750 / 750 Other: # Voids 2 4 # Incontinent Voids 2 Intake & Output 09/17/18 09/18/18 09/19/18 09/20/18 06:59 06:59 06:59 06:59 Intake Total 1350 / 1350 2890 / 2890 650 / 650 Output Total 675 / 675 1450 / 1450 1350 / 1350 Balance 675 / 675 1440 / 1440 -700 / -700 Weight 84.8 kg 87.8 kg 81.5 kg General: No acute distress, Other ( at bedside) Cardiovascular: No edema Skin: No rash Musculoskeletal: ROM Psychiatric: Cooperative - Neurologic Orientation: oriented to: Self, Place, Situation, disoriented to: Time Neurologic: EOM (Tracks right and left), Facial symmetry (Symmetric), Speech ( Intelligible with occasional paraphasic error), Other (Follows commands to move both upper and lower extremities) Objective Laboratory Results - last 24 hr 09/17/18 09/17/18 09/19/18 18:49 18:49 03:49 WBC 12.5 H RBC 4.24 L Hgb 12.6 L Hct 36.0 L MCV 84.9 MCH 29.9 MCHC 35.2 RDW 13.5 Plt Count 109 L MPV 8.5 Neut % (Auto) 86.3 H Lymph % (Auto) 7.4 L [place] % (Auto) 6.0 Eos % (Auto) 0.1 Baso % (Auto) 0.2 Neut # (Auto) 10.8 H Lymph # (Auto) 0.9 L [place] # (Auto) 0.8 Eos # (Auto) 0.0 Baso # (Auto) 0.0 WBC Differential . Differential Comment Auto diff final Sodium Potassium Chloride Carbon Dioxide Anion Gap BUN Creatinine Estimated GFR Random Glucose Calcium Total Bilirubin AST ALT Alkaline Phosphatase Total Protein Albumin PEP Pathologist Comment REBECA Screen Neg 09/19/18 03:49 WBC RBC Hgb Hct MCV MCH MCHC RDW Plt Count MPV Neut % (Auto) Lymph % (Auto) [place] % (Auto) Eos % (Auto) Baso % (Auto) Neut # (Auto) Lymph # (Auto) [place] # (Auto) Eos # (Auto) Baso # (Auto) WBC Differential Differential Comment Sodium 131 L Potassium 4.3 Chloride 98 D Carbon Dioxide 25.1 Anion Gap 8 BUN 14 Creatinine 0.75 Estimated GFR Greater than 89 Random Glucose 92 Calcium 8.2 L D Total Bilirubin 1.2 H AST 36 ALT 30 Alkaline Phosphatase 49 Total Protein 6.4 Albumin 3.1 L PEP Pathologist Comment REBECA Screen Microbiology 09/17/18 17:40 Urine Culture - Final Clean Catch Urine No growth in 48 hours Assessment and Plan (1) Closed head injury Status: Acute Code(s): S09.90XA - Unspecified injury of head, initial encounter - Plan Assessment: 1. Fall with closed head injury including tiny left subdural hematoma, small subarachnoid hemorrhage and left orbital frontal contusion now [place] level 6 2. Right 3 through 6 and right 11th rib fractures with pulmonary contusion and small pneumothorax treated conservatively Recommendations: 1. Physical therapy has begun to mobilize patient and patient is now standby to contact-guard for transfers and ambulating 90 feet standby assist with front wheel walker. 2. Speech therapy has evaluated swallow and patient is tolerating regular diet. Speech and cognitive evaluation requested. 3. Occupational therapy addressing ADLs and patient currently requires assistance 4. Anticipate patient will need inpatient rehabilitation at discharge and case management is following to assist 5. Patient has been started on Seroquel for agitation. 6. Will continue to follow while hospitalized and as appropriate at discharge
[2018-09-19] MEDS: Dexmedetomidine Inj 200 MCG in Sodium Chlor 0.9% Inj 48 ML IV.CONT PRN (19:27)
[2018-09-19] MEDS: Pantoprazole Inj 40 MG Vial IV.PUSH SCH (20:24)
[2018-09-19] MEDS: Lidocaine 5% Patch T-DERMAL SCH (20:25)
[2018-09-19] MEDS ORDERED: QUEtiapine 25 MG Tablet PO SCH (21:00)
[2018-09-20] MEDS: Chlorhexidine Gluconate 2% 1 Pack (2 Cloths) TOPICAL SCH (03:29)
[2018-09-20 05:32] LABS: Baso % (Auto) 0.5 % (0.0-2.0); Eos # (Auto) 0.1 th/mm3 (0.0-0.4); Eos % (Auto) 1.1 % (0.0-4.0); Hematocrit 37.1 % (39.0-51.0); Lymph # (Auto) 1.1 th/mm3 (1.0-4.8); Lymph % (Auto) 13.4 % (9.0-44.0); Mean Corpuscular Hemoglobin 29.8 pg (27.0-34.0); Mean Corpuscular Volume 85.1 fL (80.0-100.0); Mean Platelet Volume 8.4 fL (7.0-11.0); Mono # (Auto) 0.6 th/mm3 (0.0-0.9); Mono % (Auto) 7.5 % (0.0-8.0); Neut # (Auto) 6.4 th/mm3 (1.8-7.7); Neut % (Auto) 77.5 % (16.0-70.0); Platelet Count 122 th/mm3 (150-450); Red Blood Count 4.36 mil/mm3 (4.50-5.90); Red Cell Distribution Width 13.7 % (11.6-17.2); White Blood Count 8.3 th/mm3 (4.0-11.0)
[2018-09-20] MEDS: Methocarbamol 500 MG Tablet PO SCH ×3 (05:34→21:04)
[2018-09-20 05:59] LABS: Anion Gap 8 meq/L (5-15); Aspartate Aminotransferase 49 U/L (15-37); Blood Urea Nitrogen 21 mg/dL (7-18); Calcium 8.1 mg/dL (8.5-10.1); Carbon Dioxide 25.3 meq/L (21.0-32.0); Chloride 94 meq/L (98-107); Glomerular Filtration Rate 82 mL/min (>89); Glucose,Random 79 mg/dL (74-106); Potassium 4.2 meq/L (3.5-5.1); Sodium 127 meq/L (136-145)
[2018-09-20 06:01] LABS: Alanine Aminotransferase 29 U/L (12-78)
[2018-09-20 06:03] LABS: Alkaline Phosphatase 45 U/L (45-117); Total Protein 6.4 g/dL (6.4-8.2)
[2018-09-20] MEDS: levETIRAcetam 500 MG Tablet PO SCH ×2 (08:53→20:09)
[2018-09-20] MEDS: Senna/Docusate Sodium 8.6/50 MG Tablet PO SCH ×2 (08:53→20:09)
[2018-09-20] MEDS: QUEtiapine 25 MG Tablet PO SCH ×2 (08:53→14:24)
[2018-09-20] MEDS ORDERED: Sodium Chloride 1 GM Tablet PO SCH (09:45)
[2018-09-20] MEDS: Sodium Chloride 23.4% Inj 188 MEQ in Sod Chloride 0.9% Inj 1,000 ML IV.CONT SCH (11:34)
--- NOTE | 2018-09-20 11:37 | P.PNCC ---
Subjective Brief History: [place]: This is a 74-year-old male fell off a roof while cleaning gutters and was transferred to our institution is priority 1 trauma alert. On arrival patient was awake alert but somewhat disoriented to repetitive and confused. Dileep Coma Scale about 13 and then came up to 14. Patient underwent full diagnostic and clinical workup and was found to have following injuries Injuries: Left fronto-temporal sub-arachnoid bleed Right occipital skull fracture Right right third, fourth, fifth, sixth, seventh rib fracture Small pulmonary contusion and small hemothorax on the right L1-L4 Transverse process fx Patient will be observed in the ICU neurosurgery is consulted and he will undergo repeat CT scan of the brain tomorrow 24 Hour Review/Hospital Course: 09/17/2018 She is GCS is 14 time of my exam on low-dose of Precedex Overnight patient was agitated and was started on the Precedex Giving the natural of his injury frontal lobe and temporal frontal lobe contusions this is no surprise Patient also has multiple broken ribs and will require good pain control and pulmonary toilet There was evidence of esophageal motility disorder on the CT scan of the chest To be on safe side I will assess patient as swallow function for start him on a diet He will also need a GI follow-up outpatient basis 09/18/2018 precedex low dose in am GCS 14 -talkative neuropscychology input appreciated MRI shows ? CVA cerebellum neurology on board tolerating diet HD normal pain control is adequat IS satisfactory haldol prn-watch QT interval 09/19/2018 Patient sitting up in bed. No distress noted. Patient awake, alert and oriented. Calm and answering questions appropriately. Patient, however was severely agitated overnight, and is requiring restraints Will transition Precedex to off, and begin Seroquel dosing. Patient states, "I am fine. I am breathing okay, but when I twist, it hurts." 09/20/2018 Patient is awake alert and oriented Patient this morning started slurring speech and displaying signs of expressive dysphasia. It is hard to assess if patient has a receptive aphasia but it might be the part of the problem. This came on suddenly during the breakfast and was noted by the nurse and the family Motorically patient is fully intact DC Precedex and adjust Seroquel dosing especially for nights when patient is very restless Repeat CT scan of the brain to assess for any neurologic changes but I do not expect to see any morphologic changes on the new CT scan Hemodynamically patient is stable Bilateral good breath sounds good inspiratory function no issues there Renal function preserved Patient is taking p.o. fine and there are no problems with swallowing or feeding We will see how patient does and essentially can be transferred to rehab as soon as bed is available Objective Vital Signs / I&O: Vital Signs 09/19/18 11:59 09/19/18 12:00 09/19/18 12:20 Temperature Pulse Rate 69 66 85 Respiratory Rate 20 17 29 H Blood Pressure 160/91 H Pulse Oximetry 95 97 09/19/18 13:00 09/19/18 13:20 09/19/18 13:40 Temperature Pulse Rate 68 68 76 Respiratory Rate 16 18 16 Blood Pressure 97/53 L 124/66 Pulse Oximetry 98 93 L 09/19/18 14:00 09/19/18 14:20 09/19/18 15:00 Temperature Pulse Rate 77 76 83 Respiratory Rate 19 22 21 Blood Pressure 121/67 Pulse Oximetry 96 97 94 L 09/19/18 15:20 09/19/18 16:00 09/19/18 16:20 Temperature 98.2 F Pulse Rate 70 71 74 Respiratory Rate 17 20 22 Blood Pressure 143/75 H 144/86 H Pulse Oximetry 95 95 97 09/19/18 17:00 09/19/18 17:14 09/19/18 17:20 Temperature Pulse Rate 81 76 Respiratory Rate 26 H 25 H Blood Pressure 155/100 H Pulse Oximetry 99 93 L 09/19/18 17:59 09/19/18 18:00 09/19/18 18:07 Temperature Pulse Rate 66 62 88 Respiratory Rate 16 16 Blood Pressure 129/63 Pulse Oximetry 94 L 93 L 09/19/18 18:20 09/19/18 19:00 09/19/18 19:20 Temperature Pulse Rate 96 H 85 66 Respiratory Rate 32 H 25 H 16 Blood Pressure 161/84 H 135/73 Pulse Oximetry 86 L 96 96 09/19/18 20:00 09/19/18 20:19 09/19/18 20:43 Temperature 98.3 F Pulse Rate 86 60 Respiratory Rate 22 15 Blood Pressure 116/71 Pulse Oximetry 95 96 98 09/19/18 21:00 09/19/18 22:00 09/19/18 23:00 Temperature Pulse Rate 76 57 L 62 Respiratory Rate 16 15 15 Blood Pressure Pulse Oximetry 97 95 95 09/20/18 00:00 09/20/18 00:01 09/20/18 00:20 Temperature 98.6 F Pulse Rate 93 H 92 H 61 Respiratory Rate 29 H 20 15 Blood Pressure 164/86 H 123/67 Pulse Oximetry 96 96 94 L 09/20/18 01:00 09/20/18 02:00 09/20/18 03:00 Temperature Pulse Rate 54 L 63 60 Respiratory Rate 14 14 14 Blood Pressure Pulse Oximetry 94 L 94 L 95 09/20/18 03:28 09/20/18 04:00 09/20/18 04:05 Temperature 97.8 F Pulse Rate 50 L 76 Respiratory Rate 14 18 Blood Pressure 180/98 H Pulse Oximetry 97 97 99 09/20/18 04:20 09/20/18 05:00 09/20/18 06:00 Temperature Pulse Rate 58 L 53 L 53 L Respiratory Rate 14 13 14 Blood Pressure 130/74 Pulse Oximetry 92 L 96 97 09/20/18 07:00 09/20/18 08:00 09/20/18 08:20 Temperature 97.5 F L Pulse Rate 54 L 61 66 Respiratory Rate 14 13 18 Blood Pressure 138/76 Pulse Oximetry 96 96 97 09/20/18 09:00 09/20/18 10:00 09/20/18 10:43 Temperature Pulse Rate 75 77 Respiratory Rate 22 18 Blood Pressure 103/63 Pulse Oximetry 95 97 97 09/20/18 10:49 09/20/18 10:52 09/20/18 10:54 Temperature Pulse Rate 68 67 Respiratory Rate 15 18 Blood Pressure 86/52 L 87/55 L Pulse Oximetry 97 97 96 09/20/18 11:00 Temperature Pulse Rate 64 Respiratory Rate 18 Blood Pressure Pulse Oximetry 96 Intake & Output 09/19/18 09/20/18 09/20/18 18:59 06:59 18:59 Intake Total 480 / 480 290 / 290 Balance 480 / 480 290 / 290 Weight 84 kg Intake: IV 50 / 50 Precedex Inj 200 MCG In NS Inj 50 / 50 48 ML @ 0.2 MCG/KG/HR 4.32 mls/ hr IV.CONT TITRATE PRN Rx#: [id number] Oral 480 / 480 240 / 240 Other: # Voids 3 4 # Incontinent Voids 1 Result Diagrams: 09/20/18 04:08 09/20/18 04:08 Disinhibition Score: 21.00 Aggression Score: 14.00 Lability Score: 14.00 Agitated Behavior Total Score: 18 Assessment and Plan Plan: [place]: This is a 63-year-old male who sustained a fall. He fell off the roof of his house and landed on his head. + LOC. Confused and combative during transport. INJURIES: Tiny LEFT SDH (3mm) LEFT frontal/temporal SAH and hemorrhagic contusion Occipital fx RIGHT rib fx (1, 3-6, 11) RIGHT pulmonary contusion L1-L4 Transverse process fx *Dilated esophagus w/ esophageal motility disorder. PMHx: Dementia Procedures: Consults: Neurosurgery. Neurology. Neuropsych. Rehab medicine. Case management. Diet: Regular diet. Tolerating po diet. Encourage good po intake with each meal. Speech therapy following patient Pulmonary: Encourage good pulmonary toileting. IS and Acapella at bedside and pt encouraged to use. Rationale for use explained to patient, and verbalized understanding. A CPAP. Duo nebs as needed. PAIN Management: Oxycodone 5 mg q 4h. Morphine 2 mg q 3h for breakthrough pain. Robaxin 500 mg q 8h. Lidoderm Patch. Behavior: Precedex drip -wean to off. Begin Seroquel 25, 25,50mg. Continue Haldol 2 mg q 4h PRN as needed Activity: OOB. PT and OT ordered. GI prophylaxis: Protonix 40 mg IV Bowel regimen: Imani-colace. MOM. Lactulose PRN. LBM: 0 DVT prophylaxis: Mechanical VTE with SCDs. Chemical management TBD. Waiting for neurology clearance. DC Planning: Case management consulted for assistance with final discharge disposition. Patient will require rehab placement upon discharge. Emotional support provided to patient and family at bedside and plan of care discussed. Discussed with RN at bedside. Discussed pt condition and plan of care with collaborating trauma surgeon. Patient is hemodynamically stable in the ICU, and therefore he can be transferred to the med/surg floor to a bed close to the nursing station. The trauma team will round each day, and evaluate plan of care on a daily basis. Tiny LEFT SDH (3mm) LEFT frontal/temporal SAH and hemorrhagic contusion Occipital fx Neurosurgery consulted and assisting in management and care Scans: 09/17: EEG - No seizures. Slowing 09/17: MR Neck - NEG 2: MRI brain - small bifrontal hemorrhage L > R. Bilat SAH. Acute lunar infarct RIGHT cerebellum. 09/17: Ct brain - increase orbital frontal contusion. SDH mostly gone. Minimal SAH persists L parietal. CT brain for any change in neurological status Serial neuro checks Neurology consult and assisting in management and care Pain management as needed Seizure precautions Seizure prophylaxis -Keppra 500 mg twice daily. Encourage out of bed PT and OT ordered Agitation controlled Behavior management: Wean off Precedex drip Begin Seroquel 25, 25, 50 mg. Haldol 2 mg every 4 hours as needed for agitation and restlessness Neuropsych consulted and assisting in management and care Awaiting neurology approval for DVT prophylaxis with Lovenox RIGHT rib fx (1, 3-6, 11) RIGHT pulmonary contusion O2 nasal cannula as needed Monitor for hypoxia Supportive care Chest x-ray this a.m. stable Follow-up chest x-ray in the morning Aggressive pulmonary toileting Pain management Encourage out of bed PT and OT ordered L1-L4 Transverse process fx Supportive care Pain management Encourage out of bed PT and OT ordered Dilated esophagus w/ esophageal motility disorder. Supportive care Follow-up with GI outpatient Attestation: Critical care 32 minutes
--- NOTE | 2018-09-20 12:44 | P.PNNS ---
Subjective Interval history: September 20, 2018 Neurosurgery was called back to see this patient. Apparently this morning while he was sitting on the toilet he had the acute onset of confusion which has persisted. Physical Exam Vital signs: Vital Signs 09/19/18 13:00 09/19/18 13:20 09/19/18 13:40 Temperature Pulse Rate 68 68 76 Respiratory Rate 16 18 16 Blood Pressure 97/53 L 124/66 Pulse Oximetry 98 93 L 09/19/18 14:00 09/19/18 14:20 09/19/18 15:00 Temperature Pulse Rate 77 76 83 Respiratory Rate 19 22 21 Blood Pressure 121/67 Pulse Oximetry 96 97 94 L 09/19/18 15:20 09/19/18 16:00 09/19/18 16:20 Temperature 98.2 F Pulse Rate 70 71 74 Respiratory Rate 17 20 22 Blood Pressure 143/75 H 144/86 H Pulse Oximetry 95 95 97 09/19/18 17:00 09/19/18 17:14 09/19/18 17:20 Temperature Pulse Rate 81 76 Respiratory Rate 26 H 25 H Blood Pressure 155/100 H Pulse Oximetry 99 93 L 09/19/18 17:59 09/19/18 18:00 09/19/18 18:07 Temperature Pulse Rate 66 62 88 Respiratory Rate 16 16 Blood Pressure 129/63 Pulse Oximetry 94 L 93 L 09/19/18 18:20 09/19/18 19:00 09/19/18 19:20 Temperature Pulse Rate 96 H 85 66 Respiratory Rate 32 H 25 H 16 Blood Pressure 161/84 H 135/73 Pulse Oximetry 86 L 96 96 09/19/18 20:00 09/19/18 20:19 09/19/18 20:43 Temperature 98.3 F Pulse Rate 86 60 Respiratory Rate 22 15 Blood Pressure 116/71 Pulse Oximetry 95 96 98 09/19/18 21:00 09/19/18 22:00 09/19/18 23:00 Temperature Pulse Rate 76 57 L 62 Respiratory Rate 16 15 15 Blood Pressure Pulse Oximetry 97 95 95 09/20/18 00:00 09/20/18 00:01 09/20/18 00:20 Temperature 98.6 F Pulse Rate 93 H 92 H 61 Respiratory Rate 29 H 20 15 Blood Pressure 164/86 H 123/67 Pulse Oximetry 96 96 94 L 09/20/18 01:00 09/20/18 02:00 09/20/18 03:00 Temperature Pulse Rate 54 L 63 60 Respiratory Rate 14 14 14 Blood Pressure Pulse Oximetry 94 L 94 L 95 09/20/18 03:28 09/20/18 04:00 09/20/18 04:05 Temperature 97.8 F Pulse Rate 50 L 76 Respiratory Rate 14 18 Blood Pressure 180/98 H Pulse Oximetry 97 97 99 09/20/18 04:20 09/20/18 05:00 09/20/18 06:00 Temperature Pulse Rate 58 L 53 L 53 L Respiratory Rate 14 13 14 Blood Pressure 130/74 Pulse Oximetry 92 L 96 97 09/20/18 07:00 09/20/18 08:00 09/20/18 08:20 Temperature 97.5 F L Pulse Rate 54 L 61 66 Respiratory Rate 14 13 18 Blood Pressure 138/76 Pulse Oximetry 96 96 97 09/20/18 09:00 09/20/18 10:00 09/20/18 10:43 Temperature Pulse Rate 75 77 Respiratory Rate 22 18 Blood Pressure 103/63 Pulse Oximetry 95 97 97 09/20/18 10:49 09/20/18 10:52 09/20/18 10:54 Temperature Pulse Rate 68 67 Respiratory Rate 15 18 Blood Pressure 95/60 L 92/62 L Pulse Oximetry 97 97 96 09/20/18 11:00 Temperature Pulse Rate 64 Respiratory Rate 18 Blood Pressure Pulse Oximetry 96 Intake & Output 09/19/18 09/20/18 09/20/18 18:59 06:59 18:59 Intake Total 480 / 480 290 / 290 40 / 40 Balance 480 / 480 290 / 290 40 / 40 Weight 84 kg Intake: IV 50 / 50 40 / 40 Precedex Inj 200 MCG In NS Inj 50 / 50 40 / 40 48 ML @ 0.2 MCG/KG/HR 4.32 mls/ hr IV.CONT TITRATE PRN Rx#: [id number] Oral 480 / 480 240 / 240 Other: # Voids 3 4 # Incontinent Voids 1 - Routine Neurological Exam September 20, 2018 The patient is sitting in bed as I enter the room. He is in no acute distress. His stands next to him. Mental status testing finds him to be awake and alert. He follows some commands. His speech is garbled with a word salad. Cranial nerve testing finds his pupils are equal round reactive to light. Extraocular movements were full with conjugate gaze. Corneal reflexes present. Gag reflex present. Best motor response finds moves all 4 extremities spontaneously and to command without focal deficit. He is obtained a follow-up CT scan of the head without contrast which is essentially stable and reveals resolving hemorrhagic brain contusions bilaterally there is a new area of hypodensity within the basal ganglia on the right. There is no hydrocephalus. There is no pneumocephalus. His serum sodium is also low and he is mildly hyponatremic with a serum sodium from 127. He had an EEG several days ago which did not reveal any epileptiform discharges - Urinary Catheter Management Indwelling Urethral Catheter Cath placed during this visit: yes, but has since been removed by the nurse Reason for continuing: Acute urinary retention Insertion date: 09/17/18 Insertion time: 08:00 Removal date: 09/18/18 Removal time: 10:18 Assessment and Plan - Plan HD#3 68'sM fall off roof with +LOC, traumatic SAH. Plan: Plan for [facility] rehab Saturday Neurology following for cerebellar stroke Hemorrhages small and stable-- continue rehab therapies -- d/c Keppra after 7 days total Neurosurgery will follow peripherally now-- please call with questions Occipital laceration antonietta need to come out in 2 weeks-- around 09/30-- can be done at [facility] September 20, 2018 Neurosurgery was called back due to his acute mental status changes. The patient is hyponatremic and this needs to be corrected. I would order a follow-up MRI scan of the brain to be done without contrast and call neurology back to evaluate the patient. Neurosurgically I would approach this conservatively. Neurosurgery will follow.
--- NOTE | 2018-09-20 12:52 | CT ---
EXAM DATE: 09/20/2018 11:20 AM EST AGE/SEX: 63 years / Male INDICATIONS: Fall with bleed 4 days ago. New onset confusion. CLINICAL DATA: This is the patient's subsequent encounter. Patient reports that signs and symptoms h ave been present for 4 - 6 days and indicates a pain score of Nonresponsive. MEDICAL/SURGICAL HISTORY: . Closed head injury None. RADIATION DOSE: 48.52 CTDI (mGy) COMPARISON: [facility] – [place], [place] HEAD W/O CONTRAST, 09/17/2018. . TECHNIQUE: CT of the head without contrast. Using automated exposure control and adjustment of the mA and/or kV according to patient size, radiation dose was kept as low as reasonably achievable to ob tain optimal diagnostic quality images. DICOM format image data is available electronically for revi ew and comparison. FINDINGS: Compared to the prior CT examination from 09/17/2018, there is improvement in subarachnoid hemorrhage w ith slight residual hemorrhage remaining in left frontal region. There is encephalomalacia developing in left frontal lobe at the site of previously seen hemorrhages. No extra-axial fluid collections or mass effect is seen. Again noted is right occipital bone fracture which extends through the base of skull not changed. CONCLUSION: Overall improvement in subarachnoid hemorrhage since the prior examination with residual hemorrhage remaining left frontal lobe encephalomalacia developing left frontal lobe. No change in ri ght occipital and base of skull fracture. There is no mass effect. Electronically signed by: Brian Seymour MD Board Certified Radiologist 09/20/2018 11:31 AM EST
[2018-09-20] MEDS: Lidocaine 5% Patch T-DERMAL SCH (20:07)
[2018-09-20] MEDS: Pantoprazole Inj 40 MG Vial IV.PUSH SCH (20:07)
[2018-09-20] MEDS: QUEtiapine 100 MG Tablet PO SCH (20:09)
[2018-09-21] MEDS: Chlorhexidine Gluconate 2% 1 Pack (2 Cloths) TOPICAL SCH (03:10)
[2018-09-21 05:00] LABS: Baso % (Auto) 0.4 % (0.0-2.0); Eos # (Auto) 0.1 th/mm3 (0.0-0.4); Eos % (Auto) 1.3 % (0.0-4.0); Hematocrit 35.2 % (39.0-51.0); Hemoglobin 12.7 gm/dL (13.0-17.0); Lymph # (Auto) 1.2 th/mm3 (1.0-4.8); Lymph % (Auto) 17.5 % (9.0-44.0); Mean Corpuscular Hemoglobin 29.9 pg (27.0-34.0); Mean Corpuscular Volume 82.4 fL (80.0-100.0); Mean Platelet Volume 8.1 fL (7.0-11.0); Mono # (Auto) 0.6 th/mm3 (0.0-0.9); Mono % (Auto) 8.8 % (0.0-8.0); Platelet Count 135 th/mm3 (150-450); Red Blood Count 4.27 mil/mm3 (4.50-5.90); Red Cell Distribution Width 13.5 % (11.6-17.2); White Blood Count 6.9 th/mm3 (4.0-11.0)
[2018-09-21] MEDS: Methocarbamol 500 MG Tablet PO SCH ×3 (05:13→21:08)
[2018-09-21 05:34] LABS: Albumin 2.8 g/dL (3.4-5.0); Anion Gap 9 meq/L (5-15); Aspartate Aminotransferase 39 U/L (15-37); Blood Urea Nitrogen 25 mg/dL (7-18); Calcium 7.8 mg/dL (8.5-10.1); Carbon Dioxide 24.3 meq/L (21.0-32.0); Chloride 99 meq/L (98-107); Glomerular Filtration Rate 83 mL/min (>89); Glucose,Random 90 mg/dL (74-106); Potassium 3.4 meq/L (3.5-5.1); Sodium 132 meq/L (136-145)
[2018-09-21 05:39] LABS: Alanine Aminotransferase 30 U/L (12-78); Alkaline Phosphatase 45 U/L (45-117); Total Protein 5.9 g/dL (6.4-8.2)
[2018-09-21 05:46] LABS: Mean Corpuscular HGB Conc 36.2 % (32.0-36.0)
[2018-09-21] MEDS: Senna/Docusate Sodium 8.6/50 MG Tablet PO SCH ×2 (08:38→20:03)
[2018-09-21] MEDS: levETIRAcetam 500 MG Tablet PO SCH ×2 (08:38→20:04)
[2018-09-21] MEDS: QUEtiapine 25 MG Tablet PO SCH ×2 (08:38→14:10)
--- NOTE | 2018-09-21 11:27 | P.PNNS ---
Subjective Interval history: September 21, 2018 Patient has remained stable overnight. Physical Exam Vital signs: Vital Signs 09/20/18 11:28 09/20/18 12:00 09/20/18 12:20 Temperature 97.8 F Pulse Rate 77 61 74 Respiratory Rate 18 17 18 Blood Pressure 95/52 L 110/61 Pulse Oximetry 99 95 97 09/20/18 13:00 09/20/18 14:00 09/20/18 15:00 Temperature Pulse Rate 61 61 63 Respiratory Rate 16 16 16 Blood Pressure Pulse Oximetry 97 97 98 09/20/18 16:00 09/20/18 16:04 09/20/18 16:20 Temperature 97.8 F Pulse Rate 76 77 74 Respiratory Rate 21 21 18 Blood Pressure 119/73 106/58 L Pulse Oximetry 96 97 96 09/20/18 17:00 09/20/18 17:05 09/20/18 18:00 Temperature Pulse Rate 72 80 78 Respiratory Rate 24 32 H 25 H Blood Pressure 123/72 Pulse Oximetry 95 96 97 09/20/18 19:00 09/20/18 19:54 09/20/18 20:00 Temperature 98.2 F Pulse Rate 78 72 Respiratory Rate 21 20 Blood Pressure Pulse Oximetry 96 94 L 96 09/20/18 20:20 09/20/18 21:00 09/20/18 22:00 Temperature Pulse Rate 76 77 72 Respiratory Rate 23 32 H 20 Blood Pressure 103/59 L Pulse Oximetry 97 97 96 09/20/18 23:00 09/21/18 00:00 09/21/18 00:20 Temperature 98.6 F Pulse Rate 64 67 73 Respiratory Rate 16 16 18 Blood Pressure 94/51 L Pulse Oximetry 95 92 L 96 09/21/18 01:00 09/21/18 02:00 09/21/18 03:00 Temperature Pulse Rate 62 73 64 Respiratory Rate 15 21 16 Blood Pressure Pulse Oximetry 94 L 94 L 97 09/21/18 04:00 09/21/18 04:20 09/21/18 05:00 Temperature 98.6 F Pulse Rate 73 69 64 Respiratory Rate 23 18 16 Blood Pressure 120/67 Pulse Oximetry 95 95 94 L 09/21/18 06:00 09/21/18 07:00 09/21/18 08:00 Temperature 97.8 F Pulse Rate 62 57 L 71 Respiratory Rate 17 18 17 Blood Pressure Pulse Oximetry 97 94 L 96 09/21/18 08:20 09/21/18 09:00 09/21/18 10:00 Temperature Pulse Rate 65 72 60 Respiratory Rate 21 18 18 Blood Pressure 123/69 121/65 Pulse Oximetry 94 L 96 97 09/21/18 11:00 Temperature Pulse Rate 62 Respiratory Rate 18 Blood Pressure 111/67 Pulse Oximetry 97 Intake & Output 09/20/18 09/21/18 09/21/18 18:59 06:59 18:59 Intake Total 540 / 540 480 / 480 Output Total 1700 / 1700 800 / 800 Balance -1160 / -1160 -320 / -320 Weight 84 kg Intake: IV 40 / 40 Precedex Inj 200 MCG In NS Inj 40 / 40 48 ML @ 0.2 MCG/KG/HR 4.32 mls/ hr IV.CONT TITRATE PRN Rx#: [id number] Oral 500 / 500 480 / 480 Output: Urine 1700 / 1700 800 / 800 Other: Date of Last Bowel Movement 09/21/18 # Bowel Movements 0 - Routine Neurological Exam September 21, 2018 The patient is lying in bed as I enter the room. He is in no acute distress. On neurological examination, mental status testing finds him to be awake and alert. He is oriented by 2. His speech is much improved and fluent. He is much less confused. Cranial nerve testing 2 through 12 is grossly intact. Apparently there is some visual field loss the etiology of which is unclear. There were no focal motor nor sensory deficits. Apparently the patient ambulated to the bathroom. He is continent of bowel and bladder. - Urinary Catheter Management Indwelling Urethral Catheter Cath placed during this visit: yes, but has since been removed by the nurse Reason for continuing: Acute urinary retention Insertion date: 09/17/18 Insertion time: 08:00 Removal date: 09/18/18 Removal time: 10:18 Assessment and Plan - Plan HD#3 68'sM fall off roof with +LOC, traumatic SAH. Plan: Plan for [facility] re[facility] Saturday Neurology following for cerebellar stroke Hemorrhages small and stable-- continue rehab therapies -- d/c Huey after 7 days total Neurosurgery will follow peripherally now-- please call with questions Occipital laceration antonietta need to come out in 2 weeks-- around 09/30-- can be done at [facility] September 20, 2018 Neurosurgery was called back due to his acute mental status changes. The patient is hyponatremic and this needs to be corrected. I would order a follow-up MRI scan of the brain to be done without contrast and call neurology back to evaluate the patient. Neurosurgically I would approach this conservatively. Neurosurgery will follow. September 21, 2018 The patient is stable in fact much improved neurologically. His hyponatremia has improved. Since he has improved neurologically and return to his baseline, I probably would not obtain a follow-up MRI scan of the brain. At this point, I would continue the present management and consider transfer for a course of inpatient rehabilitation. Neurosurgery will follow.
[2018-09-21 13:27] LABS: Potassium 4.2 meq/L (3.5-5.1)
[2018-09-21] MEDS: Sodium Chloride 23.4% Inj 188 MEQ in Sod Chloride 0.9% Inj 1,000 ML IV.CONT SCH (14:10)
--- NOTE | 2018-09-21 14:22 | P.PNCC ---
Subjective Brief History: CHENEGA: This is a 74-year-old male fell off a roof while cleaning gutters and was transferred to our institution is priority 1 trauma alert. On arrival patient was awake alert but somewhat disoriented to repetitive and confused. Henrietta Coma Scale about 13 and then came up to 14. Patient underwent full diagnostic and clinical workup and was found to have following injuries Injuries: Left fronto-temporal sub-arachnoid bleed Right occipital skull fracture Right right third, fourth, fifth, sixth, seventh rib fracture Small pulmonary contusion and small hemothorax on the right L1-L4 Transverse process fx Patient will be observed in the ICU neurosurgery is consulted and he will undergo repeat CT scan of the brain tomorrow 24 Hour Review/Hospital Course: 09/17/2018 She is GCS is 14 time of my exam on low-dose of Precedex Overnight patient was agitated and was started on the Precedex Giving the natural of his injury frontal lobe and temporal frontal lobe contusions this is no surprise Patient also has multiple broken ribs and will require good pain control and pulmonary toilet There was evidence of esophageal motility disorder on the CT scan of the chest To be on safe side I will assess patient as swallow function for start him on a diet He will also need a GI follow-up outpatient basis 09/18/2018 precedex low dose in am GCS 14 -talkative neuropscychology input appreciated MRI shows ? CVA cerebellum neurology on board tolerating diet HD normal pain control is adequat IS satisfactory haldol prn-watch QT interval 09/19/2018 Patient sitting up in bed. No distress noted. Patient awake, alert and oriented. Calm and answering questions appropriately. Patient, however was severely agitated overnight, and is requiring restraints Will transition Precedex to off, and begin Seroquel dosing. Patient states, "I am fine. I am breathing okay, but when I twist, it hurts." 09/20/2018 Patient is awake alert and oriented Patient this morning started slurring speech and displaying signs of expressive dysphasia. It is hard to assess if patient has a receptive aphasia but it might be the part of the problem. This came on suddenly during the breakfast and was noted by the nurse and the family Motorically patient is fully intact DC Precedex and adjust Seroquel dosing especially for nights when patient is very restless Repeat CT scan of the brain to assess for any neurologic changes but I do not expect to see any morphologic changes on the new CT scan Hemodynamically patient is stable Bilateral good breath sounds good inspiratory function no issues there Renal function preserved Patient is taking p.o. fine and there are no problems with swallowing or feeding We will see how patient does and essentially can be transferred to rehab as soon as bed is available 09/21/2018 Neurologically patient is improved and he seems to be awake and oriented Still slightly slurring speech Motorically appears to be fully intact Patient on 2% hypertonic saline at 40 cc/h and sodium 136 mEq/L today. Will resume hypertonic saline probably for another day or so to get sodium over 140 Hemodynamically patient is in fact Patient remains in the ICU only for the hypertonic saline administration which cannot be done on the floor Upon completion of therapy patient will require inpatient rehabilitation for probably prolonged period of time Objective Vital Signs / I&O: Vital Signs 09/20/18 15:00 09/20/18 16:00 09/20/18 16:04 Temperature 97.8 F Pulse Rate 63 76 77 Respiratory Rate 16 21 21 Blood Pressure 119/73 Pulse Oximetry 98 96 97 09/20/18 16:20 09/20/18 17:00 09/20/18 17:05 Temperature Pulse Rate 74 72 80 Respiratory Rate 18 24 32 H Blood Pressure 106/58 L 123/72 Pulse Oximetry 96 95 96 09/20/18 18:00 09/20/18 19:00 09/20/18 19:54 Temperature Pulse Rate 78 78 Respiratory Rate 25 H 21 Blood Pressure Pulse Oximetry 97 96 94 L 09/20/18 20:00 09/20/18 20:20 09/20/18 21:00 Temperature 98.2 F Pulse Rate 72 76 77 Respiratory Rate 20 23 32 H Blood Pressure 103/59 L Pulse Oximetry 96 97 97 09/20/18 22:00 09/20/18 23:00 09/21/18 00:00 Temperature 98.6 F Pulse Rate 72 64 67 Respiratory Rate 20 16 16 Blood Pressure Pulse Oximetry 96 95 92 L 09/21/18 00:20 09/21/18 01:00 09/21/18 02:00 Temperature Pulse Rate 73 62 73 Respiratory Rate 18 15 21 Blood Pressure 94/51 L Pulse Oximetry 96 94 L 94 L 09/21/18 03:00 09/21/18 04:00 09/21/18 04:20 Temperature 98.6 F Pulse Rate 64 73 69 Respiratory Rate 16 23 18 Blood Pressure 120/67 Pulse Oximetry 97 95 95 09/21/18 05:00 09/21/18 06:00 09/21/18 07:00 Temperature Pulse Rate 64 62 57 L Respiratory Rate 16 17 18 Blood Pressure Pulse Oximetry 94 L 97 94 L 09/21/18 08:00 09/21/18 08:20 09/21/18 09:00 Temperature 97.8 F Pulse Rate 71 65 72 Respiratory Rate 17 21 18 Blood Pressure 123/69 Pulse Oximetry 96 94 L 96 09/21/18 09:31 09/21/18 10:00 09/21/18 11:00 Temperature Pulse Rate 75 60 62 Respiratory Rate 18 18 18 Blood Pressure 121/65 111/67 Pulse Oximetry 95 97 97 09/21/18 11:47 09/21/18 11:48 09/21/18 12:00 Temperature 98.5 F Pulse Rate 66 65 Respiratory Rate 17 Blood Pressure 91/51 L 92/53 L Pulse Oximetry 100 09/21/18 13:00 09/21/18 14:00 Temperature Pulse Rate 59 L 67 Respiratory Rate 16 18 Blood Pressure 97/54 L 111/62 Pulse Oximetry 100 99 Intake & Output 09/20/18 09/21/18 09/21/18 18:59 06:59 18:59 Intake Total 540 / 540 480 / 480 1047 / 1047 Output Total 1700 / 1700 800 / 800 Balance -1160 / -1160 -320 / -320 1047 / 1047 Weight 84 kg Intake: IV 40 / 40 1047 / 1047 Precedex Inj 200 MCG In NS Inj 40 / 40 48 ML @ 0.2 MCG/KG/HR 4.32 mls/ hr IV.CONT TITRATE PRN Rx#: [id number] Sodium Chloride 23.4% Inj 188 1047 / 1047 MEQ In NS Inj 1,000 ML @ 40 mls /hr IV.CONT .Q24H [facility] Rx#: [id number] Oral 500 / 500 480 / 480 Output: Urine 1700 / 1700 800 / 800 Other: Date of Last Bowel Movement 09/21/18 # Bowel Movements 0 Result Diagrams: 09/21/18 04:25 09/21/18 13:00 Disinhibition Score: 17.50 Aggression Score: 14.00 Lability Score: 14.00 Agitated Behavior Total Score: 16 Assessment and Plan Plan: CHENEGA: This is a 63-year-old male who sustained a fall. He fell off the roof of his house and landed on his head. + LOC. Confused and combative during transport. INJURIES: Tiny LEFT SDH (3mm) LEFT frontal/temporal SAH and hemorrhagic contusion Occipital fx RIGHT rib fx (1, 3-6, 11) RIGHT pulmonary contusion L1-L4 Transverse process fx *Dilated esophagus w/ esophageal motility disorder. PMHx: Dementia Procedures: Consults: Neurosurgery. Neurology. Neuropsych. Rehab medicine. Case management. Diet: Regular diet. Tolerating po diet. Encourage good po intake with each meal. Speech therapy following patient Pulmonary: Encourage good pulmonary toileting. IS and Acapella at bedside and pt encouraged to use. Rationale for use explained to patient, and verbalized understanding. A CPAP. Duo nebs as needed. PAIN Management: Oxycodone 5 mg q 4h. Morphine 2 mg q 3h for breakthrough pain. Robaxin 500 mg q 8h. Lidoderm Patch. Behavior: Precedex drip -wean to off. Begin Seroquel 25, 25,50mg. Continue Haldol 2 mg q 4h PRN as needed Activity: OOB. PT and OT ordered. GI prophylaxis: Protonix 40 mg IV Bowel regimen: Imani-colace. MOM. Lactulose PRN. LBM: 0 DVT prophylaxis: Mechanical VTE with SCDs. Chemical management TBD. Waiting for neurology clearance. DC Planning: Case management consulted for assistance with final discharge disposition. Patient will require rehab placement upon discharge. Emotional support provided to patient and family at bedside and plan of care discussed. Discussed with RN at bedside. Discussed pt condition and plan of care with collaborating trauma surgeon. Patient is hemodynamically stable in the ICU, and therefore he can be transferred to the med/surg floor to a bed close to the nursing station. The trauma team will round each day, and evaluate plan of care on a daily basis. Tiny LEFT SDH (3mm) LEFT frontal/temporal SAH and hemorrhagic contusion Occipital fx Neurosurgery consulted and assisting in management and care Scans: 09/17: EEG - No seizures. Slowing 2: MR Neck - NEG 09/17: MRI brain - small bifrontal hemorrhage L > R. Bilat SAH. Acute lunar infarct RIGHT cerebellum. 09/17: Ct brain - increase orbital frontal contusion. SDH mostly gone. Minimal SAH persists L parietal. CT brain for any change in neurological status Serial neuro checks Neurology consult and assisting in management and care Pain management as needed Seizure precautions Seizure prophylaxis -Keppra 500 mg twice daily. Encourage out of bed PT and OT ordered Agitation controlled Behavior management: Wean off Precedex drip Begin Seroquel 25, 25, 50 mg. Haldol 2 mg every 4 hours as needed for agitation and restlessness Neuropsych consulted and assisting in management and care Awaiting neurology approval for DVT prophylaxis with Lovenox RIGHT rib fx (1, 3-6, 11) RIGHT pulmonary contusion O2 nasal cannula as needed Monitor for hypoxia Supportive care Chest x-ray this a.m. stable Follow-up chest x-ray in the morning Aggressive pulmonary toileting Pain management Encourage out of bed PT and OT ordered L1-L4 Transverse process fx Supportive care Pain management Encourage out of bed PT and OT ordered Dilated esophagus w/ esophageal motility disorder. Supportive care Follow-up with GI outpatient Attestation: Critical care 32 minutes
[2018-09-21] MEDS: Lidocaine 5% Patch T-DERMAL SCH (20:03)
[2018-09-21] MEDS: Pantoprazole Inj 40 MG Vial IV.PUSH SCH (20:03)
[2018-09-21] MEDS: QUEtiapine 100 MG Tablet PO SCH (20:03)
[2018-09-22 04:39] LABS: Baso % (Auto) 0.4 % (0.0-2.0); Eos # (Auto) 0.1 th/mm3 (0.0-0.4); Eos % (Auto) 1.1 % (0.0-4.0); Hematocrit 35.5 % (39.0-51.0); Hemoglobin 12.4 gm/dL (13.0-17.0); Lymph # (Auto) 1.2 th/mm3 (1.0-4.8); Lymph % (Auto) 16.6 % (9.0-44.0); Mean Corpuscular HGB Conc 34.9 % (32.0-36.0); Mean Corpuscular Hemoglobin 30.1 pg (27.0-34.0); Mean Corpuscular Volume 86.1 fL (80.0-100.0); Mean Platelet Volume 8.3 fL (7.0-11.0); Mono # (Auto) 0.6 th/mm3 (0.0-0.9); Mono % (Auto) 8.8 % (0.0-8.0); Neut # (Auto) 5.2 th/mm3 (1.8-7.7); Neut % (Auto) 73.1 % (16.0-70.0); Platelet Count 144 th/mm3 (150-450); Red Blood Count 4.12 mil/mm3 (4.50-5.90); Red Cell Distribution Width 13.6 % (11.6-17.2); White Blood Count 7.1 th/mm3 (4.0-11.0)
[2018-09-22 05:02] LABS: Albumin 2.7 g/dL (3.4-5.0); Anion Gap 5 meq/L (5-15); Aspartate Aminotransferase 31 U/L (15-37); Blood Urea Nitrogen 17 mg/dL (7-18); Calcium 7.5 mg/dL (8.5-10.1); Carbon Dioxide 26.8 meq/L (21.0-32.0); Chloride 102 meq/L (98-107); Glomerular Filtration Rate Greater Than 89 mL/min (>89); Glucose,Random 80 mg/dL (74-106); Potassium 3.7 meq/L (3.5-5.1); Sodium 134 meq/L (136-145)
[2018-09-22 05:03] LABS: Alanine Aminotransferase 27 U/L (12-78)
[2018-09-22 05:06] LABS: Alkaline Phosphatase 42 U/L (45-117); Total Protein 5.8 g/dL (6.4-8.2)
[2018-09-22] MEDS: Methocarbamol 500 MG Tablet PO SCH (05:18)
[2018-09-22 08:29] VITALS: TEMP 98.7
[2018-09-22] MEDS: Senna/Docusate Sodium 8.6/50 MG Tablet PO SCH (08:35)
[2018-09-22] MEDS: QUEtiapine 25 MG Tablet PO SCH (08:35)
[2018-09-22] MEDS: levETIRAcetam 500 MG Tablet PO SCH (08:36)
--- NOTE | 2018-09-22 08:42 | P.PNNPSY ---
- Cognitive Moderate: Cognitive, Attention/concentration, Confused/orientation, Insight/ awareness, Judgment/problem solving, Memory - Psychosocial Intact: Psychosocial, Family/other adjustment, Realistic expectation - Progress Notes/Response to Treatment Contents of Sessions: Adjustment, Level of consciousness Time with Patient: 30 minutes Premorbid Psychological Status: Premorbid Cognitive, Emotional and Behavioral Status: Tenuous. The patient has 20+ years of education and a solid work history prior to this injury, up until two years ago when he retired for neurocognitive decline. He was employed as a chiropractor. The patient has no prior psychiatric difficulties, as described above. However, he does have underlying dementia, likely LYLY. Substance abuse history is unremarkable. Behavioral Reactions of Patient and Family/Support System: Stable. The patients family is experiencing ongoing issues of adjustment given the nature of the injury, and this aspect of recovery will require ongoing monitoring. Emotional/Behavioral Status of Patient and Family/Support System: Stable. Pertinent issues, if appropriate to this patients clinical care, are described in detail above. Maximizing Acute Care Outcome: It is recommended that the patient be monitored for emergent behavioral impulsivity as the medical condition evolves. This patients neuropathological challenges may limit rehabilitation potential going forward, and these challenges will require specialized therapeutic skills to maximize outcome. Additionally, the patients family is experiencing ongoing issues of adjustment given the traumatic nature of the injury, and they may benefit from ongoing psychological assistance. At this point in the recovery process, the patient does not have cognitive capacity as the patient is unable to understand a situation and its likely consequences, nor is the patient able to manipulate information rationally. Cognitive capacity will be assessed throughout the recovery process. Anticipated Problems: Ongoing areas of concern will include behavioral impulsivity, lack of insight and judgment, which is expected to improve with time and treatment. Treatment Plan: This clinician will continue to follow with you throughout the course of this patients critical care treatment, and I will be available to meet with the patients family/support system to facilitate their understanding and the ongoing care of their family member. The goals of neuropsychological intervention shall be both educational and supportive to the family/support system as is deemed clinically appropriate. [place] COG Scale: Level IV Disinhibition Score: 17.50 Aggression Score: 14.00 Lability Score: 14.00 Agitated Behavior Total Score: 16 Impression: 63 year old male s/p TBI 2T fall on 09/16/2018, superimposed on an underlying Alzheimer's disease, probable, condition. This patient has had neurocognitive decline for two years prior to this injury. His comprehension is presently impaired as well, consistent with a receptive aphasic condition. Neuroimaging did reveal left frontotemporal SAH. Progress Note Narrative: PTD 6. The patient is improving from a neurobehavioral standpoint. His agitation/restlessness is managed, with ABS of 16 (17.5,14,14). He has Seroquel 50/50/100. He is medicated Rancho IV with underlying dementing disorder unrelated to TBI. Plan is for rehab. I will follow. - Diagnosis (1) Major neurocognitive disorder as late effect of traumatic brain injury with behavioral disturbance Status: Acute (2) Major neurocognitive disorder due to Alzheimer's disease, probable, without behavioral disturbance Status: Acute
--- NOTE | 2018-09-22 09:01 | P.PNNEU ---
Subjective Active Medications: Active Medications Al Hydroxide/Mg Hydroxide (Milk Of Garth Sapp) 30 ml PO BID [facility] Last Admin: 09/22/18 08:25 Dose: Not Given Albuterol (Duoneb Neb (Prn)) 1 ampul NEB Q2HR NEB PRN PRN Reason: WHEEZING Bacitracin (Baciguent Oint) 1 applicatio TOPICAL BID [facility] Last Admin: 09/22/18 08:35 Dose: 1 applicatio Enalaprilat (Vasotec Inj) 1.25 mg IV.PUSH Q8H PRN PRN Reason: Blood pressure 180/95 Magnesium Sulfate 4 gm/ Sodium (Chloride) 100 mls @ 50 mls/hr IV.SIG UNSCH PRN PRN Reason: For Magnesium 0.9 - 1.1 mg/dL Magnesium Sulfate 2 gm/ Sodium (Chloride) 100 mls @ 50 mls/hr IV.SIG UNSCH PRN PRN Reason: For Magnesium 1.2 - 1.6 mg/dL Potassium Chloride (Kcl 40 Meq Premix Inj) 40 meq in 100 mls @ 25 mls/hr IV.SIG Q2H PRN PRN Reason: For Potassium 2.8 - 3.2 mEq/L Potassium Chloride (Kcl 20 Meq Premix Inj) 20 meq in 100 mls @ 50 mls/hr IV.SIG Q2H PRN PRN Reason: For Potassium 3.3 - 3.5 mEq/L Potassium Chloride (Kcl 40 Meq Premix Inj) 40 meq in 100 mls @ 25 mls/hr IV.SIG UNSCH PRN PRN Reason: For Potassium 3.3 - 3.5 mEq/L Potassium Chloride (Kcl 20 Meq Premix Inj) 20 meq in 100 mls @ 50 mls/hr IV.SIG Q2H PRN PRN Reason: For Potassium 2.8 - 3.2 mEq/L Potassium Phosphate 30 mmol/ (Sodium Chloride) 260 mls @ 42 mls/hr IV.SIG UNSCH PRN PRN Reason: SEE LABEL COMMENTS Sodium Phosphate 30 mmol/ (Sodium Chloride) 260 mls @ 42 mls/hr IV.SIG UNSCH PRN PRN Reason: For Phosphorus < 2.5 mg/dL Sodium Chloride 188 meq/ (Sodium Chloride) 1,047 mls @ 40 mls/hr IV.CONT .Q24H [facility] Last Admin: 09/21/18 14:10 Dose: 40 mls/hr Lactulose (Lactulose Liq) 30 ml PO DAILY [facility] Last Admin: 09/22/18 08:25 Dose: Not Given Levetiracetam (Keppra) 500 mg PO BID [facility] Last Admin: 09/22/18 08:36 Dose: 500 mg Lidocaine HCl (Lidoderm 5% Patch.12 Hr) 1 patch T-DERMAL DAILY@2100 [facility] Last Admin: 09/21/18 20:03 Dose: 1 patch Magnesium Oxide (Mag-Ox) 800 mg PO UNSCH PRN PRN Reason: For Magnesium 1.2 - 1.6 mg/dL Methocarbamol (Robaxin) 500 mg PO Q8HR [facility] Last Admin: 09/22/18 05:18 Dose: 500 mg Morphine Sulfate (Morphine Inj) 2 mg IV.PUSH Q3H PRN PRN Reason: BREAKTHROUGH PAIN Ondansetron HCl (Zofran Inj) 4 mg IV.PUSH Q6H PRN PRN Reason: NAUSEA OR VOMITING Last Admin: 09/18/18 10:59 Dose: 4 mg Oxycodone HCl (Roxicodone) 5 mg PO Q4H PRN PRN Reason: PAIN >3 Last Admin: 09/19/18 15:00 Dose: 5 mg Pantoprazole Sodium (Protonix Inj) 40 mg IV.PUSH Q24H [facility] Last Admin: 09/21/18 20:03 Dose: 40 mg Patch Removal (Remove Old Patch) 1 each T-DERMAL DAILY [facility] Last Admin: 09/22/18 08:36 Dose: 1 each Potassium Bicarb/Potassium Chloride (K-Lyte Cl Eff) 50 meq PO UNSCH PRN PRN Reason: For Potassium 3.3 - 3.5 mEq/L Last Admin: 09/21/18 08:41 Dose: 50 meq Potassium Phosphate (K-Phos Original) 2,000 mg PO Q4H PRN PRN Reason: Phosphorus Less Than 2.5 mg/dL Potassium Phosphate (K-Phos Original) 2,000 mg PO UNSCH PRN PRN Reason: SEE LABEL COMMENTS Quetiapine Fumarate (Seroquel) 50 mg PO BID@0900,1400 [facility] Last Admin: 09/22/18 08:35 Dose: 50 mg Quetiapine Fumarate (Seroquel) 100 mg PO HS [facility] Last Admin: 09/21/18 20:03 Dose: 100 mg Senna/Docusate Sodium (Imani-Colace) 1 tab PO BID [facility] Last Admin: 09/22/18 08:35 Dose: 1 tab Sodium Chloride (Ns Flush) 2 ml IV.FLUSH UNSCH PRN PRN Reason: FLUSH AFTER USING IV ACCESS Allergies/Adverse Reactions: Allergies Allergy/AdvReac Type Severity Reaction Status Date / Time No Known Allergies Allergy Verified 09/16/18 18:46 Physical Exam Vital signs: Vital Signs 09/21/18 09:00 09/21/18 09:31 09/21/18 10:00 Temperature Pulse Rate 72 75 60 Respiratory Rate 18 18 18 Blood Pressure 121/65 Pulse Oximetry 96 95 97 09/21/18 11:00 09/21/18 11:47 09/21/18 11:48 Temperature Pulse Rate 62 66 Respiratory Rate 18 Blood Pressure 111/67 91/51 L Pulse Oximetry 97 09/21/18 12:00 09/21/18 13:00 09/21/18 14:00 Temperature 98.5 F Pulse Rate 65 59 L 67 Respiratory Rate 17 16 18 Blood Pressure 92/53 L 97/54 L 111/62 Pulse Oximetry 100 100 99 09/21/18 15:00 09/21/18 16:00 09/21/18 17:00 Temperature 98.7 F Pulse Rate 69 71 74 Respiratory Rate 18 18 19 Blood Pressure 113/63 137/81 125/64 Pulse Oximetry 100 98 97 09/21/18 18:00 09/21/18 19:00 09/21/18 19:29 Temperature Pulse Rate 73 67 87 Respiratory Rate 16 16 31 H Blood Pressure 99/51 L 106/56 L Pulse Oximetry 99 99 100 09/21/18 19:52 09/21/18 20:00 09/21/18 21:00 Temperature 97.8 F Pulse Rate 72 73 Respiratory Rate 20 19 Blood Pressure 144/78 H 147/85 H 150/80 H Pulse Oximetry 99 98 09/21/18 21:20 09/21/18 22:00 09/21/18 23:00 Temperature Pulse Rate 64 73 Respiratory Rate 15 22 Blood Pressure 126/72 Pulse Oximetry 98 98 99 09/21/18 23:02 09/22/18 00:00 09/22/18 00:21 Temperature 97.8 F Pulse Rate 73 74 71 Respiratory Rate 26 H 17 16 Blood Pressure 133/63 125/73 Pulse Oximetry 99 93 L 94 L 09/22/18 01:00 09/22/18 02:00 09/22/18 03:00 Temperature Pulse Rate 73 64 66 Respiratory Rate 18 15 17 Blood Pressure 131/72 123/62 124/61 Pulse Oximetry 94 L 94 L 95 09/22/18 04:00 09/22/18 05:00 09/22/18 06:00 Temperature 97.8 F Pulse Rate 70 71 67 Respiratory Rate 16 17 16 Blood Pressure 136/62 139/78 130/70 Pulse Oximetry 94 L 97 95 09/22/18 07:00 09/22/18 08:00 Temperature 98.7 F Pulse Rate 62 70 Respiratory Rate 16 15 Blood Pressure 139/63 134/60 Pulse Oximetry 95 94 L Intake & Output 09/21/18 09/22/18 09/22/18 18:59 06:59 18:59 Intake Total 1447 / 1447 240 / 240 Balance 1447 / 1447 240 / 240 Weight 84 kg Intake: IV 1047 / 1047 Sodium Chloride 23.4% Inj 188 1047 / 1047 MEQ In NS Inj 1,000 ML @ 40 mls /hr IV.CONT .Q24H [facility] Rx#: [id number] Oral 400 / 400 240 / 240 Other: # Voids 3 3 Date of Last Bowel Movement 09/21/18 09/21/18 09/21/18 # Bowel Movements 1 Narrative: awake alert hmc not yr vff face sym / t/o - Urinary Catheter Management Indwelling Urethral Catheter Cath placed during this visit: yes, but has since been removed by the nurse Reason for continuing: Acute urinary retention Insertion date: 09/17/18 Insertion time: 08:00 Removal date: 09/18/18 Removal time: 10:18 Objective Laboratory Results - last 24 hr 09/21/18 09/21/18 09/21/18 04:25 13:00 19:55 WBC RBC Hgb Hct MCV MCH MCHC RDW Plt Count MPV Neut % (Auto) Lymph % (Auto) [place] % (Auto) Eos % (Auto) Baso % (Auto) Neut # (Auto) Lymph # (Auto) [place] # (Auto) Eos # (Auto) Baso # (Auto) WBC Differential . Diff Scan Auto diff confirmed Differential Comment Sodium 131 L 131 L Potassium 4.2 D Chloride Carbon Dioxide Anion Gap BUN Creatinine Estimated GFR Random Glucose Calcium Total Bilirubin AST ALT Alkaline Phosphatase Total Protein Albumin 09/22/18 09/22/18 03:17 03:17 WBC 7.1 RBC 4.12 L Hgb 12.4 L Hct 35.5 L MCV 86.1 D MCH 30.1 MCHC 34.9 RDW 13.6 Plt Count 144 L MPV 8.3 Neut % (Auto) 73.1 H Lymph % (Auto) 16.6 [place] % (Auto) 8.8 H Eos % (Auto) 1.1 Baso % (Auto) 0.4 Neut # (Auto) 5.2 Lymph # (Auto) 1.2 [place] # (Auto) 0.6 Eos # (Auto) 0.1 Baso # (Auto) 0.0 WBC Differential . Diff Scan Differential Comment Auto diff final Sodium 134 L Potassium 3.7 Chloride 102 Carbon Dioxide 26.8 Anion Gap 5 BUN 17 Creatinine 0.82 Estimated GFR Greater than 89 Random Glucose 80 Calcium 7.5 L Total Bilirubin 0.9 AST 31 ALT 27 Alkaline Phosphatase 42 L Total Protein 5.8 L Albumin 2.7 L Review/Management - Review/Management Plan: imp ? small r cbllr cva will review with neurorads check echo and holter b12 shots mra neck entire vb system nl fu eeg and labs oob 09/19/17 very agitated overnoc i would rec get him oob and ambulate and out of hospital mary as he has dementia and in hosp will only inc his agitation and confusion could have some pain inc agitation too i dw rads r cbllr acute cva echo and holter pend sr overnoc eeg neg no asa with inc for now //09/22/18 stable neuro oob ok echo nl holter pend sr on tele small r cbllr cva with mult small hemorrhages from trauma fu holter ad check mma cold dc home soon med team should ask nusu about heparin
[2018-09-22] MEDS ORDERED: Sodium Chloride 1 GM Tablet PO SCH (09:30)
[2018-09-22] MEDS ORDERED: Heparin - SQ 10,000 UNITS/ML Vial SQ SCH (10:00)
[2018-09-22 10:25] VITALS: BP 127/87; PULSE 70; RESP 18; O2SAT 100
--- NOTE | 2018-09-22 11:06 | P.DS ---
Date of admission: 09/16/18 19:22 Primary care physician: UNKNOWN Brief History from admission: S/P Fall DS: Diagnosis - Discharge Diagnosis (1) Lumbar transverse process fracture Status: Acute (2) Occipital bone fracture Status: Acute (3) SAH (subarachnoid hemorrhage) Status: Acute (4) Closed rib fracture Status: Acute (5) Contusion of lung Status: Acute (6) Subdural hemorrhage Status: Acute DS: Summary Hospital Course: IGIUGIG: Fell off the roof of his house and landed on his head. + LOC. Confused and combative during transport. INJURIES: LEFT SDH (3mm) LEFT frontal/temporal SAH and contusion Occipital skull fx RIGHT rib fx (1, 3-6, 11) RIGHT pulmonary contusion L1-L4 transverse process fx PMHx: Dementia LEFT SDH, LEFT frontal/temporal SAH and contusion, Occipital skull fx Neurosurgery consulted, follow-up outpatient Supportive care Stable neuro checks Continue Keppra x 7 days 09/20: CT brain - improvement in SAH Pain control Bowel regimen OOB- PT and OT ordered Na+ 134 Discontinued 2% saline and added salt tabs 1 gram PO BID SQ Heparin RIGHT rib fxs, RIGHT pulmonary contusion, L1-L4 transverse process fx Supportive care Pulmonary toileting 09/19: CXR shows no cardiopulmonary disease Pain control Bowel regimen OOB- PT and OT ordered Follow-up with PCP in 1 week Plan of care discussed with patient and at bedside. Collaborating Trauma surgeon agrees with plan. Case management consulted to assist with discharge planning. Patient is cleared from trauma surgery standpoint to safely discharge to [facility]. - Time Spent with Patient Total time spent providing and/or coordinating discharge services: Greater than 30 minutes - Quality: VTE Deep Vein Thrombosis/Pulmonary Embolism Present on Admission: No Exam Vital signs: Vital Signs 09/21/18 11:47 09/21/18 11:48 09/21/18 12:00 Temperature 98.5 F Pulse Rate 66 65 Respiratory Rate 17 Blood Pressure 91/51 L 92/53 L Pulse Oximetry 100 09/21/18 13:00 09/21/18 14:00 09/21/18 15:00 Temperature Pulse Rate 59 L 67 69 Respiratory Rate 16 18 18 Blood Pressure 97/54 L 111/62 113/63 Pulse Oximetry 100 99 100 09/21/18 16:00 09/21/18 17:00 09/21/18 18:00 Temperature 98.7 F Pulse Rate 71 74 73 Respiratory Rate 18 19 16 Blood Pressure 137/81 125/64 99/51 L Pulse Oximetry 98 97 99 09/21/18 19:00 09/21/18 19:29 09/21/18 19:52 Temperature Pulse Rate 67 87 Respiratory Rate 16 31 H Blood Pressure 106/56 L 144/78 H Pulse Oximetry 99 100 09/21/18 20:00 09/21/18 21:00 09/21/18 21:20 Temperature 97.8 F Pulse Rate 72 73 Respiratory Rate 20 19 Blood Pressure 147/85 H 150/80 H Pulse Oximetry 99 98 98 09/21/18 22:00 09/21/18 23:00 09/21/18 23:02 Temperature Pulse Rate 64 73 73 Respiratory Rate 15 22 26 H Blood Pressure 126/72 133/63 Pulse Oximetry 98 99 99 09/22/18 00:00 09/22/18 00:21 09/22/18 01:00 Temperature 97.8 F Pulse Rate 74 71 73 Respiratory Rate 17 16 18 Blood Pressure 125/73 131/72 Pulse Oximetry 93 L 94 L 94 L 09/22/18 02:00 09/22/18 03:00 09/22/18 04:00 Temperature 97.8 F Pulse Rate 64 66 70 Respiratory Rate 15 17 16 Blood Pressure 123/62 124/61 136/62 Pulse Oximetry 94 L 95 94 L 09/22/18 05:00 09/22/18 06:00 09/22/18 07:00 Temperature Pulse Rate 71 67 62 Respiratory Rate 17 16 16 Blood Pressure 139/78 130/70 139/63 Pulse Oximetry 97 95 95 09/22/18 08:00 09/22/18 09:01 09/22/18 10:00 Temperature 98.7 F Pulse Rate 70 77 Respiratory Rate 15 18 Blood Pressure 134/60 127/87 Pulse Oximetry 94 L 97 100 Intake & Output 09/21/18 09/22/18 09/22/18 18:59 06:59 18:59 Intake Total 1447 / 1447 240 / 240 747 / 747 Balance 1447 / 1447 240 / 240 747 / 747 Weight 84 kg Intake: IV 1047 / 1047 747 / 747 Sodium Chloride 23.4% Inj 188 1047 / 1047 747 / 747 MEQ In NS Inj 1,000 ML @ 40 mls /hr IV.CONT .Q24H [facility] Rx#: [id number] Oral 400 / 400 240 / 240 Other: # Voids 3 3 Date of Last Bowel Movement 09/21/18 09/21/18 09/21/18 # Bowel Movements 1 Narrative: GENERAL: 63 year old well-nourished, well developed male OOB in chair. SKIN: Warm and dry.. CARDIOVASCULAR: Regular rate and rhythm. RESPIRATORY: No accessory muscle use. Lungs clear to auscultation bilaterally. GASTROINTESTINAL: Abdomen soft, non-tender, nondistended. + BS. MUSCULOSKELETAL: Extremities without cyanosis, +1 BUE edema noted. MAEW, + perfused NEUROLOGICAL: Awake and alert. Normal speech. Results Procedures completed during hospitalization: . Labs on day of discharge: Labs from last 24 hours 09/22/18 09/22/18 09/22/18 10:11 10:11 03:17 WBC RBC Hgb Hct MCV MCH MCHC RDW Plt Count MPV Neut % (Auto) Lymph % (Auto) [place] % (Auto) Eos % (Auto) Baso % (Auto) Neut # (Auto) Lymph # (Auto) [place] # (Auto) Eos # (Auto) Baso # (Auto) WBC Differential Diff Scan Differential Comment Sodium Pending 134 L Potassium 3.7 Chloride 102 Carbon Dioxide 26.8 Anion Gap 5 BUN 17 Creatinine 0.82 Estimated GFR Greater than 89 Random Glucose 80 Calcium 7.5 L Total Bilirubin 0.9 AST 31 ALT 27 Alkaline Phosphatase 42 L Total Protein 5.8 L Albumin 2.7 L Methylmalonic Acid Pending 09/22/18 09/21/18 09/21/18 03:17 19:55 13:00 WBC 7.1 RBC 4.12 L Hgb 12.4 L Hct 35.5 L MCV 86.1 D MCH 30.1 MCHC 34.9 RDW 13.6 Plt Count 144 L MPV 8.3 Neut % (Auto) 73.1 H Lymph % (Auto) 16.6 [place] % (Auto) 8.8 H Eos % (Auto) 1.1 Baso % (Auto) 0.4 Neut # (Auto) 5.2 Lymph # (Auto) 1.2 [place] # (Auto) 0.6 Eos # (Auto) 0.1 Baso # (Auto) 0.0 WBC Differential . Diff Scan Differential Comment Auto diff final Sodium 131 L 131 L Potassium 4.2 D Chloride Carbon Dioxide Anion Gap BUN Creatinine Estimated GFR Random Glucose Calcium Total Bilirubin AST ALT Alkaline Phosphatase Total Protein Albumin Methylmalonic Acid 09/21/18 04:25 WBC RBC Hgb Hct MCV MCH MCHC RDW Plt Count MPV Neut % (Auto) Lymph % (Auto) [place] % (Auto) Eos % (Auto) Baso % (Auto) Neut # (Auto) Lymph # (Auto) [place] # (Auto) Eos # (Auto) Baso # (Auto) WBC Differential . Diff Scan Auto diff confirmed Differential Comment Sodium Potassium Chloride Carbon Dioxide Anion Gap BUN Creatinine Estimated GFR Random Glucose Calcium Total Bilirubin AST ALT Alkaline Phosphatase Total Protein Albumin Methylmalonic Acid - Impressions ITS Impressions Abdomen/Pelvis CT 09/16/18 18:21 CONCLUSION: 1. Fractures of the right 11th rib and right first through fourth transverse processes of the lumbar spine. 2. No solid visceral injury identified within the abdomen. Cervical Spine CT 09/16/18 18:21 CONCLUSION: 1. No cervical spine fracture identified. 2. Nondisplaced fractures of the medial right first rib and right occipital bone. Chest CT 09/16/18 18:21 CONCLUSION: 1. Fractures of the right third through sixth rib and right 11th rib, nondisplaced with minimal right posterior lung thorax. 2. Dilated esophagus with esophageal motility disorder. Face CT 09/16/18 18:21 CONCLUSION: 1. No acute facial bone fracture. Lumbar Spine CT 09/16/18 18:21 CONCLUSION: EXAM DATE: 09/16/2018 7:28 PM EST AGE/SEX: 89 years / Male INDICATIONS: Trauma alert. Fell off a roof. CLINICAL DATA: This is the patient's initial encounter. Patient reports that signs and symptoms have been present for 1 day and indicates a pain score of Nonresponsive. MEDICAL/SURGICAL HISTORY: Non-responsive. Non-responsive. RADIATION DOSE: . CTDI (mGy) ; Reconstructed from previous dataset, no dose COMPARISON: No prior exams available for comparison. TECHNIQUE: Contiguous axial images were acquired using a multirow detector CT scanner after intravenous administration of 97 ml Omnipaque 350 (iohexol) nonionic water-soluble contrast as a cumulative dose for multiple exams. Multiplanar reconstruction in the sagittal and coronal planes was performed. Using automated exposure control and adjustment of the mA and/or kV according to patient size, radiation dose was kept as low as reasonably achievable to obtain optimal diagnostic quality images. DICOM format image data is available electronically for review and comparison. FINDINGS: No thoracic vertebral body fractures are identified. CONCLUSION: EXAM DATE: 09/16/2018 7:28 PM EST AGE/SEX: 89 years / Male INDICATIONS: Trauma alert. Fell off a roof. CLINICAL DATA: This is the patient's initial encounter. Patient reports that signs and symptoms have been present for 1 day and indicates a pain score of Nonresponsive. MEDICAL/SURGICAL HISTORY: Non-responsive. Non-responsive. RADIATION DOSE: . CTDI (mGy) ; Reconstructed from previous dataset, no dose COMPARISON: No prior exams available for comparison. TECHNIQUE: Multiple contiguous axial images were obtained through the chest during bolus infusion of 97 ml Omnipaque 350 (iohexol) nonionic water-soluble contrast as a cumulative dose for multiple exams. Images were obtained in suspended respiration using multiple row detector helical technique. Using automated exposure control and adjustment of the mA and/or kV according to patient size, radiation dose was kept as low as reasonably achievable to obtain optimal diagnostic quality images. DICOM format image data is available electronically for review and comparison. FINDINGS: No fractures of the right third through sixth ribs on the right 11th rib, nondisplaced. No pneumothorax. Minimal lung contusion on the right posteriorly. Trace extrapleural hemorrhage. There is no mediastinal hematoma or evidence for traumatic aortic injury. The esophagus is abnormally dilated characteristic of esophageal motility disorder. CONCLUSION: 1. Fractures of the right third through sixth rib and right 11th rib, nondisplaced with minimal right posterior lung contusion 2. Dilated esophagus with esophageal motility disorder. Thoracic Spine CT 09/16/18 18:21 CONCLUSION: EXAM DATE: 09/16/2018 7:24 PM EST AGE/SEX: 89 years / Male INDICATIONS: Trauma. Fell off a roof. CLINICAL DATA: This is the patient's initial encounter. Patient reports that signs and symptoms have been present for 1 day and indicates a pain score of Nonresponsive. MEDICAL/SURGICAL HISTORY: Non-responsive. Non-responsive. RADIATION DOSE: . CTDI (mGy) ; Reconstructed from previous dataset, no dose COMPARISON: No prior exams available for comparison. TECHNIQUE: Multiple contiguous axial images were obtained through the chest during bolus infusion of 96 ml Omnipaque 350 (iohexol) nonionic water-soluble contrast as a single exam dose. Images were obtained in suspended respiration using multiple row detector helical technique. Using automated exposure control and adjustment of the mA and/or kV according to patient size, radiation dose was kept as low as reasonably achievable to obtain optimal diagnostic quality images. DICOM format image data is available electronically for review and comparison. FINDINGS: No fractures of the right third through sixth ribs on the right 11th rib, nondisplaced. No pneumothorax. Minimal lung contusion on the right posteriorly. Trace extrapleural hemorrhage. There is no mediastinal hematoma or evidence for traumatic aortic injury. The esophagus is abnormally dilated characteristic of esophageal motility disorder. CONCLUSION: 1. Fractures of the right third through sixth rib and right 11th rib, nondisplaced with minimal right posterior lung contusion 2. Dilated esophagus with esophageal motility disorder. Neck MRA 09/17/18 00:00 CONCLUSION: 1. Unremarkable carotid arteries. No stenosis or narrowing. Percent stenosis is calculated using the diameter of the stenotic region over the diameter of the normal distal internal carotid artery Head MRI 09/17/18 16:11 CONCLUSION: 1. Small bifrontal hemorrhages greater on the left. 2. Subarachnoid hemorrhage bilaterally. 3. Acute lacunar infarct right cerebellum. 4. Nonspecific white matter changes. Chest X-Ray 09/19/18 06:00 CONCLUSION: No acute cardiopulmonary disease. Head CT 09/20/18 10:06 CONCLUSION: Overall improvement in subarachnoid hemorrhage since the prior examination with residual hemorrhage remaining left frontal lobe encephalomalacia developing left frontal lobe. No change in right occipital and base of skull fracture. There is no mass effect. Discharge Plan - Discharge Disposition Patient Disposition: [facility] Inpatient - Discharge Condition Condition: Stable - Discharge Order Discharge Orders: Discharge Order (Routine); Ordered 09/22/18 Ordered By: Jesus Yu ED Use Only Admit Order (Routine); Ordered 09/16/18 Ordered By: Yakov Espinal - Physicians Team Primary Care Provider: UNKNOWN, Attending Provider: Eros Melgar Other Providers: Braden Patel MD ; George Daniels MD ; [employer] [employer] [facility] ; Thanh Rivers MD ; Andreia Frnacis ARNP ; Eros Melgar MD ; Tete Van MD ; Jesus Yu ARNP ; Alice Carlisle MD ; Dalton Solis MD ; Juan Elias, PhD ; Yoselin Oneill MD ; Otoniel Carrera MD
--- NOTE | 2018-09-22 13:42 | P.PNNS ---
Subjective Interval history: September 22, 2018 Patient has remained stable overnight. He is mildly confused and less agitated. Physical Exam Vital signs: Vital Signs 09/21/18 14:00 09/21/18 15:00 09/21/18 16:00 Temperature 98.7 F Pulse Rate 67 69 71 Respiratory Rate 18 18 18 Blood Pressure 111/62 113/63 137/81 Pulse Oximetry 99 100 98 09/21/18 17:00 09/21/18 18:00 09/21/18 19:00 Temperature Pulse Rate 74 73 67 Respiratory Rate 19 16 16 Blood Pressure 125/64 99/51 L 106/56 L Pulse Oximetry 97 99 99 09/21/18 19:29 09/21/18 19:52 09/21/18 20:00 Temperature 97.8 F Pulse Rate 87 72 Respiratory Rate 31 H 20 Blood Pressure 144/78 H 147/85 H Pulse Oximetry 100 99 09/21/18 21:00 09/21/18 21:20 09/21/18 22:00 Temperature Pulse Rate 73 64 Respiratory Rate 19 15 Blood Pressure 150/80 H 126/72 Pulse Oximetry 98 98 98 09/21/18 23:00 09/21/18 23:02 09/22/18 00:00 Temperature 97.8 F Pulse Rate 73 73 74 Respiratory Rate 22 26 H 17 Blood Pressure 133/63 Pulse Oximetry 99 99 93 L 09/22/18 00:21 09/22/18 01:00 09/22/18 02:00 Temperature Pulse Rate 71 73 64 Respiratory Rate 16 18 15 Blood Pressure 125/73 131/72 123/62 Pulse Oximetry 94 L 94 L 94 L 09/22/18 03:00 09/22/18 04:00 09/22/18 05:00 Temperature 97.8 F Pulse Rate 66 70 71 Respiratory Rate 17 16 17 Blood Pressure 124/61 136/62 139/78 Pulse Oximetry 95 94 L 97 09/22/18 06:00 09/22/18 07:00 09/22/18 08:00 Temperature 98.7 F Pulse Rate 67 62 70 Respiratory Rate 16 16 15 Blood Pressure 130/70 139/63 134/60 Pulse Oximetry 95 95 94 L 09/22/18 09:01 09/22/18 10:00 Temperature Pulse Rate 77 Respiratory Rate 18 Blood Pressure 127/87 Pulse Oximetry 97 100 Intake & Output 01/03/0409/22/18 09/22/18 18:59 06:59 18:59 Intake Total 1447 / 1447 240 / 240 747 / 747 Balance 1447 / 1447 240 / 240 747 / 747 Weight 84 kg Intake: IV 1047 / 1047 747 / 747 Sodium Chloride 23.4% Inj 188 1047 / 1047 747 / 747 MEQ In NS Inj 1,000 ML @ 40 mls /hr IV.CONT .Q24H [facility] Rx#: [id number] Oral 400 / 400 240 / 240 Other: # Voids 3 3 Date of Last Bowel Movement 09/21/18 09/21/18 09/21/18 # Bowel Movements 1 - Routine Neurological Exam September 22, 2018 Patient is sitting up in a chair as I enter the room. His sits next to him. On neurological examination, he is awake alert. He is oriented by 2. His speech is fluent. He is mildly confused. He has difficulty with recent recall. Cranial nerve testing finds his pupils equal round react to light. Visual yeager were full to confrontation. Extraocular movements were full without diplopia or nystagmus. Face was symmetric. Corneal reflexes were present bilaterally. Gag reflex is present. Tongue and uvula were in the midline midline. There are no focal motor nor sensory deficits. The patient is ambulated in the room. He is continent of bowel and bladder. - Urinary Catheter Management Indwelling Urethral Catheter Cath placed during this visit: yes, but has since been removed by the nurse Reason for continuing: Acute urinary retention Insertion date: 09/17/18 Insertion time: 08:00 Removal date: 09/18/18 Removal time: 10:18 Assessment and Plan - Plan HD#3 68'sM fall off roof with +LOC, traumatic SAH. Plan: Plan for [facility] Saturday Neurology following for cerebellar stroke Hemorrhages small and stable-- continue rehab therapies -- d/c Keppra after 7 days total Neurosurgery will follow peripherally now-- please call with questions Occipital laceration antonietta need to come out in 2 weeks-- around 09/30-- can be done at [facility] September 20, 2018 Neurosurgery was called back due to his acute mental status changes. The patient is hyponatremic and this needs to be corrected. I would order a follow-up MRI scan of the brain to be done without contrast and call neurology back to evaluate the patient. Neurosurgically I would approach this conservatively. Neurosurgery will follow. September 21, 2018 The patient is stable in fact much improved neurologically. His hyponatremia has improved. Since he has improved neurologically and return to his baseline, I probably would not obtain a follow-up MRI scan of the brain. At this point, I would continue the present management and consider transfer for a course of inpatient rehabilitation. Neurosurgery will follow. September 22, 2018 The patient is stable and improving neurologically. He remains somewhat confused and at times agitated. This apparently was a problem prior to his traumatic brain injury. From a neurosurgical perspective the patient is certainly stable for transfer for a course of inpatient rehabilitation and probably should be referred to a memory disorder clinic or obtain a neurology consultation for his underlying baseline confusion or dementia. I discussed this all with patient's and she understood and was agreeable. At this point the patient complains that pharmacological DVT prophylaxis I prescribed heparin 5000 units subcutaneous every 8 hours. He is to follow-up in the neurosurgery clinic in 1 month and just prior to follow-up a CT scan of the head without contrast. Neurosurgery will sign off. Please reconsult as needed.
--- NOTE | 2018-09-22 21:28 | HM ---
Date Performed: 09/19/2018 Time Performed: 07:28:00 HOOKUP DATE: 09/19/18 07:28:00 AM Fri ANALYSIS START TIME: 09/19/2018 7:33:00 AM ANALYSIS END TIME: 09/20/2018 7:36:59 AM PATIENT AGE: 63 PATIENT HEIGHT: 70 PATIENT WEIGHT: 193 DRUG LIST: ROOM 1302 PATIENT DIAGNOSIS: SUBARACHNOID HEMORRHAGE TEST NARRATIVE: The patient's average heart rate was 70 BPM. No episodes of tachycardia wer e noted. Heart rates less than 50 BPM were noted 3% of the time. 40 pauses exceeding 2.0 second s were noted. The longest pause of 3.3 seconds occurred at 12:01:30 AM Sat. 1 ventricular ectopic s, which represented < 1% of the total beat count, were noted. The highest ventricular ectopic frequ ency occurred from 04:00 PM to 05:00 PM Fri. During this time 1 VE(s) occurred. Ventricular ectopic s were observed as 1 isolated beat(s) only. No couplets or runs were noted. 10 supraventricular ectopics, which represented < 1% of the total beat count, were noted. The highest supraventricular e ctopic frequency occurred from 02:00 PM to 03:00 PM Fri. During this time 2 SVE(s) occurred. No episodes of ST depression (defined as -1.0 mm or more) were noted in channel 1. No episodes of ST de pression (defined as -1.0 mm or more) were noted in channel 2. No episodes of ST depression (defined as -1.0 mm or more) were noted in channel 3. NO DIARY WAS GIVEN TO PATIENT TEST INTERPRETATION: 1. Predominant underlying rhythm is sinus 2. Ocassional PAC and PVC were no cuco 3. 40 pauses of greater than 2.0 sec with longest pause of 3.3 sec 4. No significant supraventric ular or ventricular tachyarrythmias were noted Signed by : Marcel Giraldo
== END 2018-09-22 11:00 | DRG 963 ==
LOC: NEPI 18:13 → N03 19:00 → EDBD 19:22 → NEDA 19:22 → N03 19:27
PROVIDERS: ADMIT Surgery; ATTEND Surgery
CPT/HCPCS: 70450; 70486; 70548; 70553; 71010; 71045; 71260; 72125; 72129; 72132; 74177; 80048; 80053; 80307; 81001; 82140; 82550; 82552; 82607; 82746; 82948; 82962; 83918; 83921; 84132; 84165; 84295; 84425; 84439; 84443; 84484; 85025; 85610; 85651; 85652; 85730; 86038; 86430; 86431; 86592; 86850; 86900; 86901; 87086; 87641; 90765; 90774; 90775; 90784; 92610; 93005; 93225; 93306; 94150; 94640; 94650; 94651; 94664; 94665; 94668; 95819; 96125; 96365; 96374; 96375; 97110; 97116; 97127; 97162; 97166; 97530; 97532; 99291; A9585; C8952; C9113; G0195; G0390; G0515; J0131; J0690; J1170; J1630; J1644; J1940; J2250; J2405; J3010; J3420; J7030; P9612; Q9967